=== PATIENT | female | born 1955 | race Caucasian/White ===

== ENCOUNTER → 2018-05-16 11:37 | Outpatient (CLI) | payer BC, SELFPAY ==
[2018-05-17 19:59] LABS: Calcium, Ionized 5.9 mg/dL (4.5-5.6); Parathyroid Hormone Intact 92 pg/mL (15-65)
== END ==
PROVIDERS: PCP Physician Assistant; Visit Provider Physician Assistant
DX: E83.52 Hypercalcemia (principal)
CPT/HCPCS: 36415; 82330; 83970

== ENCOUNTER → 2021-10-25 07:38 | Outpatient (CLI) | payer MEDICARE, BC, MEDICAID, SELFPAY ==
[2021-10-25 21:07] LABS: Basophils # 0.1 K/mm3 (0-0.2); Basophils % 1.5 % (0.1-2.0); Eosinophils # 0.2 K/mm3 (0.0-0.4); Eosinophils % 3.3 % (0.1-12.0); Hemoglobin 12.8 g/dL (12.2-16.2); Lymphocytes # 1.1 K/mm3 (0.7-4.5); Lymphocytes % 16.2 % (10-50); Mean Corpuscular HGB Conc 32.2 g/dL (31.8-35.4); Mean Corpuscular Hemoglobin 32.7 pg (27.0-31.2); Mean Corpuscular Volume 101.6 fl (81-99); Mean Platelet Volume 12.4 fl (7.4-10.4); Monocytes # 0.4 K/mm3 (0.1-1.0); Monocytes % 5.9 % (1.7-9.3); Neutrophils # 5.1 K/mm3 (1.8-7.8); Neutrophils % 73.1 % (37.0-80.0); Platelet Count 184 K/mm3 (142-424); Red Blood Count 3.93 M/mm3 (4.20-5.40); Red Cell Distribution Width 13.9 % (11.5-17.5)
[2021-10-25 21:13] LABS: Alanine Aminotransferase 17 U/L (12-78); Albumin Level 3.8 g/dl (3.5-5.0); Albumin/Globulin Ratio 1.3 (1.1-1.8); Alkaline Phosphatase 166 U/L (38-126); Anion Gap 12.9 mEq/L (5-15); Aspartate Amino Transferase 72 U/L (14-36); Bilirubin,Total 0.9 mg/dl (0.2-1.3); Blood Urea Nitrogen 20 mg/dl (7-17); Calcium 10.8 mg/dl (8.4-10.2); Carbon Dioxide 20 mmol/L (22.0-30.0); Chloride 111 mmol/L (98-107); Chol/HDL Ratio 3.1 (1-3.5); Cholesterol 175 mg/dl (140-200); Estimated Glomerular Filt Rate 62 ml/min (>60); GFR (African American) 76 ML/MIN (>60); Glucose 94 mg/dl (74-100); HDL Cholesterol 56 mg/dl (40-60); Potassium 3.9 mmoL/L (3.5-5.1); Sodium 140 mmol/L (136-145); Total Protein,Serum 6.8 g/dl (6.3-8.2); Triglycerides 140 mg/dl (30-150); VLDL Cholesterol 28 mg/dL (0-40)
[2021-10-25 21:37] LABS: Hemoglobin A1C 4.8 % (4.0-6.0)
[2021-10-26 10:02] LABS: Intact Parathyroid Hormone 87.9 pg/mL (7.5-53.5)
[2021-10-26 10:57] LABS: Vitamin B12 286 pg/mL (239-931)
[2021-10-26 11:01] LABS: Folate > 20.00 ng/mL
[2021-10-28 13:15] LABS: Direct LDL Cholesterol 76.91 mg/dL (100-129)
== END ==
PROVIDERS: PCP Family Medicine; Visit Provider Student in an Organized Health Care Education/Training Program
DX: E11.9 Type 2 diabetes mellitus without complications (principal); I10 Essential (primary) hypertension
CPT/HCPCS: 80053; 80061; 82607; 82746; 83036; 83970; 85025

== ENCOUNTER → 2021-11-01 20:05 | Outpatient (CLI) | payer MEDICARE, BC, MEDICAID, SELFPAY ==
[2021-11-01 22:28] LABS: 25-OH Vitamin D, Total 42.8 ng/mL (30-100)
[2021-11-03 18:09] LABS: Calcium, Ionized 6.4 mg/dL (4.5-5.6)
== END ==
PROVIDERS: PCP Student in an Organized Health Care Education/Training Program; Visit Provider Student in an Organized Health Care Education/Training Program
DX: R53.83 Other fatigue (principal); E66.9 Obesity, unspecified; Z68.32 Body mass index [BMI] 32.0-32.9, adult
CPT/HCPCS: 82306; 82330

== ENCOUNTER 2022-04-20 14:30 | Outpatient (RCR) | payer MEDICARE, BC, MEDICAID, SELFPAY ==
--- NOTE | 2022-03-13 16:44 | HMH.PTOPEV ---
PT Outpatient Evaluation Rehab PT Outpatient Evaluation Start: 03/13/22 15:02 Freq: Status: Active Protocol: Document 03/13/22 15:03 PDESEROUX (Rec: 03/13/22 16:44 [email or web address] [id number]) E-signed By Terry Powell, PT Outpatient Therapy Subjective History Subjective History Pt. is a 66 year old female whom presents to [facility] Out[facility] Services in [place] for the initial evaluation for imbalance/falls/weakness this date(03/13/22) w/ c/o chronic and intermittent SOB, BLE muscle weakness, imbalance, and falls of insidious onset that has worsened since last fall(2021). Pt. reports noticing a worsening of symptoms after she had quit doing her exercises that she was given after going to the Prison. Pt. reports she was [facility] to a Prison last February(2021) secondary to having multiple falls. Pt. reports noticing an improvement in fall risk w/ a BLE strengthening, gait training, and balance/ proprioceptive program in the Prison, but also with the continuation of exercises that she was given after being discharged from the Prison. Pt. reports she had fallen 6 times in 4 days as the reason she was admitted to the Prison last year. Pt. currently reports falling at least 10 times in the last 6 months. Pt. reports increased BLE shakiness or trembling d/t weakness as the main reason for having her falls. Pt. reports her most recent fall was at [facility]. Pt. reports owning a rollator, FWW, SPC, and quad cane. Pt. reports she lives alone in a 1 -story home. Pt. reports
== END 2022-05-11 16:05 | disposition home or self-care (01) ==
LOC: PT 14:30
PROVIDERS: PCP Family Medicine; Visit Provider Family Medicine
DX: R26.81 Unsteadiness on feet (principal); M62.81 Muscle weakness (generalized); W19.XXXA Unspecified fall, initial encounter
CPT/HCPCS: 97110; 97112; 97163; 97164; 97530

== ENCOUNTER 2023-04-05 14:01 | Inpatient (IN) | payer MEDICARE, BC, SELFPAY ==
[2023-04-05] VITALS (10 sets, daily range): BP systolic 137–180; BP diastolic 74–100; PULSE 60–90; RESP 18–20; TEMP 36.6–36.7; O2SAT 95–100; BMI 34.7; BMI 31.8
--- NOTE | 2023-04-05 14:34 | CT_ITS ---
FINAL REPORT CLINICAL HISTORY: AMS FINDINGS: Axial images of the head were obtained without contrast. Coronal reformatted images were also obtained. This study was performed with techniques to keep radiation doses as low as reasonably achievable (ALARA). Individualized dose reduction techniques using automated exposure control or adjustment of mA and/or kV according to the patient''s size were employed. There is generalized age-appropriate atrophy. Periventricular low-attenuation areas are seen consistent with mild chronic ischemic changes. There is an area of encephalomalacia in the right posterior frontal lobe. There are extra-axial calcifications in the convexities bilaterally, largest measures 7 mm which may represent dural calcification or small calcified meningiomas. There is no evidence of intracranial hemorrhage or mass. There is no evidence of acute infarct. There is no evidence of shift of the midline structures. There is moderate left maxillary mucosal thickening. IMPRESSION: Atrophy and mild periventricular chronic ischemic changes. No acute intracranial abnormality identified. Reviewed, Interpreted and Dictated by Yoni Chris III, MD Transcribed by Coretta Wu Authenticated and [facility]
--- NOTE | 2023-04-05 14:34 | XR_ITS ---
FINAL REPORT CLINICAL HISTORY: dyspnea FINDINGS: SINGLE-VIEW CHEST There is cardiomegaly. Patient is status post median sternotomy. Right subclavian pacer is identified. The lungs are clear. There is no pneumothorax. IMPRESSION: No acute cardiopulmonary process. Reviewed, Interpreted and Dictated by Yoni Chris III, MD Transcribed by Coretta Wu Authenticated and [facility]
--- NOTE | 2023-04-05 14:36 | HMH.EDGENADL ---
Discharge Plan Disposition Patient Disposition: Admitted Prescriptions Prescriptions: No Action Eliquis 5 mg tablet 5 mg PO BID multivitamin Tablet 1 tab PO DAILY biotin 5,000 mcg tablet,disintegrating 10,000 mcg PO DAILY bupropion HCl 300 mg tablet extended release 24 hr 300 mg PO DAILY Qty: 90 3RF cholecalciferol (vitamin D3) 25 mcg (1,000 unit) capsule 25 mcg PO DAILY Qty: 90 3RF furosemide 20 mg tablet 20 mg PO DAILY Qty: 90 3RF losartan 50 mg tablet 50 mg PO DAILY Qty: 90 3RF potassium chloride 10 mEq capsule, extended release 10 meq PO DAILY Qty: 90 3RF sertraline 100 mg tablet 100 mg PO DAILY Qty: 90 3RF albuterol sulfate [Ventolin HFA] 90 mcg/actuation HFA aerosol inhaler 1 puff inhalation QID PRN (Reason: shortness of breath or wheezing) Qty: 18 2RF sotalol 80 mg tablet 80 mg PO BID 90 Days Qty: 180 0RF Referrals Follow up/Referrals: Rosas Alanis MD [Primary Care Provider] - See instructions Clinical Impressions Clinical Impression: Encephalopathy acute, CHF exacerbation, Elevated troponin, Acute UTI Instructions Patient Instructions: DI for Altered Mental Status Discharge ED Provider: Rogelio Klein General Adult HPI <Jerrica Dolan MD - Last Filed: 04/05/23 14:39> General Chief complaint: Altered Mental Status Stated complaint: sent from [facility] Time Seen by Provider: 04/05/23 14:31 Mode of Arrival: Ambulatory Source of Information: Patient Limitations: No Limitations Description of Symptoms (Recalled from ER Triage Doc. by RN): Patient reports she has been having trouble with her memory. Patient reports she has been staying at her sisters house because she feels unsafe to stay alone because of her memory. Patient reports she feels as if she has worn out her welcome at her sisters so she stayed at her house last night but that she does not have electricity currently because she forgot how to pay it. History of Present Illness HPI narrative: Patient is a 67-year-old female who is by herself at the moment and history is significantly limited as she is brought in for confusion. She does not know how long this has been going on she cannot tell me any further symptoms she denies any headache abdominal pain chest pain urinary symptoms but also states she does not know why she is here. Apparently sister dropped her off but she is not in the room to provide any additional history at the moment. Related Data Home Medications Medication Instructions Recorded Confirmed apixaban 5 mg tablet (Eliquis) 5 mg PO BID 10/18/21 03/01/22 multivitamin 1 tab PO DAILY 10/18/21 03/01/22 biotin 5,000 mcg disintegrating 10,000 mcg PO DAILY 10/25/21 03/01/22 tablet Previous Rx's Medication Instructions Recorded bupropion HCl 300 mg 24 hr tablet, 300 mg PO DAILY #90 tabs 10/25/21 extended release cholecalciferol (vitamin D3) 25 25 mcg PO DAILY #90 caps 10/25/21 mcg (1,000 unit) capsule furosemide 20 mg tablet 20 mg PO DAILY #90 tabs 10/25/21 losartan 50 mg tablet 50 mg PO DAILY HTN #90 tabs 10/25/21 potassium chloride 10 mEq 10 meq PO DAILY #90 caps 10/25/21 capsule,extended release sertraline 100 mg tablet 100 mg PO DAILY Depression #90 tabs 10/25/21 albuterol sulfate 90 mcg/actuation 1 puff inhalation QID PRN 10/26/21 aerosol inhaler (Ventolin HFA) shortness of breath or wheezing #18 grams sotalol 80 mg tablet 80 mg PO BID 90 days #180 tabs 06/07/22 Allergies Allergy/AdvReac Type Severity Reaction Status Date / Time Sulfa (Sulfonamide Allergy Unknown Verified 03/01/22 13:07 Antibiotics) allergy reaction From DARVOCET-N 100 AdvReac Intermediate NA-NAUSEA/V Uncoded 03/01/22 13:07 OMITING PFSH <Jerrica Dolan MD - Last Filed: 04/05/23 14:39> [facility] Disclaimer: The information contained in this section may have been updated after the patient was seen, as this information can be updated by other users. Medical History Aortic stenosis Breast cancer Diabetes mellitus Hypertension Paroxysmal atrial fibrillation Surgical History Aortic valve replaced H/O heart valve replacement with bioprosthetic valve H/O mastectomy H/O: hysterectomy Hx of cholecystectomy Family History Mother Coronary artery disease Father Heart attack Sister Hypertension Hyperlipidemia Coronary artery disease Diabetes Social History Smoking Status: Former smoker second hand exposure: No alcohol intake: never counseling given: No current occupational status: unemployed Travel in the last 8 weeks: None household members: none housing: house lives independently: Yes number of children: 0 number of grandchildren: 0 Hx Recent Travel: No <Jerrica Dolan MD - Last Filed: 04/05/23 14:39> ROS Obtained: Yes All systems reviewed & no additional complaints except as documented Physical Exam <Jerrica Dolan MD - Last Filed: 04/05/23 14:39> General General appearance: alert, in no apparent distress and anxious (Crying) Respiratory Respiratory exam: Present normal lung sounds bilaterally and respiratory distress Cardiovascular Cardiovascular exam: Present regular rate and normal rhythm Abdominal Exam Abdominal exam: Present soft; Absent distention or tenderness Extremities Exam Extremities exam: Present normal inspection and full ROM Neurological Exam Neurological exam: Present alert, CN II-XII intact and normal gait; Absent oriented X3 (Patient oriented to person and place but not time) or motor sensory deficit Medical Decision Making <Jerrica Dolan MD - Last Filed: 04/05/23 14:39> [facility] Inquiry Pt receiving controlled substance: No Vital Signs: 04/05/23 14:14 04/05/23 14:30 04/05/23 15:30 Pulse Rate 78 60 Pulse Rate [Right Brachial] 75 Respiratory Rate 18 20 Blood Pressure 149/78 H 159/90 H Blood Pressure [Right Arm] 172/100 H Blood Pressure Mean 101 98 Blood Pressure Mean [Right Arm] 124 Blood Pressure Source [Right Arm] Automatic Cuff Blood Pressure Position [Right Arm] Sitting 02 Sat by Pulse Oximetry 99 95 95 Oxygen Delivery Method Room Air 04/05/23 16:00 Pulse Rate 68 Pulse Rate [Right Brachial] Respiratory Rate 20 Blood Pressure 149/84 H Blood Pressure [Right Arm] Blood Pressure Mean 105 Blood Pressure Mean [Right Arm] Blood Pressure Source [Right Arm] Blood Pressure Position [Right Arm] 02 Sat by Pulse Oximetry 99 Oxygen Delivery Method Lab Data Lab Results 04/05/23 15:10: Sodium 143, Potassium 3.5, Chloride 108 H, Carbon Dioxide 28, Anion Gap 10.5, BUN 16, Creatinine 1.10 H, Estimated Creat Clear 75, Estimated GFR 49 L, Est GFR ( Amer) 60, Glucose 123 H, Calcium 10.5 H, Phosphorus 2.7, Magnesium 1.8, Total Bilirubin 1.8 H, AST 38 H, ALT 24, Alkaline Phosphatase 113, Ammonia 19, Troponin I 0.05 H, NT-Pro-B Natriuret Pep 5680 H, Total Protein 7.1, Albumin 3.9, Globulin 3.2, Albumin/Globulin Ratio 1.2, TSH 1.12 04/05/23 15:20: VBG pH 7.41, VBG pCO2 41.2, VBG pO2 38.0, VBG HCO3 25.4, VBG Total CO2 26.6, VBG O2 Saturation 69.6, VBG Base Excess 0.7, Urine Color Yellow, Urine Appearance Clear, Urine pH 7.0, Ur Specific [place] 1.015, Urine Protein Trace, Urine Glucose (UA) Negative, Urine Ketones Negative, Urine Blood Negative, Urine Nitrate Negative, Urine Bilirubin 1+ A, Urine Urobilinogen 2.0, Ur Leukocyte Esterase 1+ A, Urine RBC Occasional, Urine WBC 5-10, Ur Squamous Epith Cells 3-5, Urine Bacteria Trace 04/05/23 15:10 Orders (Tests/Meds): ED MEDICATIONS Discontinued Medications Generic Name Dose Route Start Last Admin Trade Name Blayneq PRN Reason Stop Dose Admin Furosemide 40 mg 04/05/23 17:08 Furosemide 40mg/4ml Vial IV 04/05/23 17:09 ONCE ONE Lactated Ringer's 1,000 mls @ 999 mls/hr 04/05/23 14:45 04/05/23 15:07 Lactated Ringer's 1000 Ml Bag IV 04/05/23 15:45 999 mls/hr .Q1H1M CARLOS A Administration Ceftriaxone Sodium 1 gm/ 50 mls @ 100 mls/hr 04/05/23 16:28 04/05/23 16:57 Sodium Chloride IV 04/05/23 16:57 100 mls/hr ONCE ONE Administration ORDERS Category Date Time Status CT head/brain wo con Stat Cat Scan 04/05/23 14:34 Completed CXR --portable [XR chest portable] Stat Exams 04/05/23 14:34 Completed Ammonia Stat Lab 04/05/23 15:10 Completed Brain Natriuretic Peptide Stat Lab 04/05/23 15:10 Completed CBC w/Auto Diff [Complete Blood Count Auto Diff] Stat Lab 04/05/23 17:00 Received CMP [Comprehensive Metabolic Panel] Stat Lab 04/05/23 15:10 Completed Magnesium Stat Lab 04/05/23 15:10 Completed Phosphorous Stat Lab 04/05/23 15:10 Completed TSH [Thyroid Stimulating Hormone] Stat Lab 04/05/23 15:10 Completed Trop I [Troponin I] Stat Lab 04/05/23 15:10 Completed Troponin I Q3H Lab 04/05/23 17:45 Ordered Troponin I Q3H Lab 04/05/23 20:45 Ordered UA [Urinalysis and Microscopic] Stat Lab 04/05/23 15:20 Completed Urine Culture Stat Micro 04/05/23 15:20 Received Venous Blood Gas Stat RT 04/05/23 15:20 Completed Medical Decision Narrative: Is a 67-year-old female presenting today for acute encephalopathy duration and exact nature surrounding this is unknown given her clinical status and nobody else is available currently to give any additional history. Patient unable to provide any focal or localizing symptoms. Will do a nonspecific encephalopathy and altered mental status workup. She is afebrile do not suspect she has a [employer] infection. Care was transitioned to Dr. Rogelio Klein at 3 PM for further evaluation and treatment. <Rogelio Klein MD - Last Filed: 04/05/23 17:17> Vital Signs: 04/05/23 14:14 04/05/23 14:30 04/05/23 15:30 Pulse Rate 78 60 Pulse Rate [Right Brachial] 75 Respiratory Rate 18 20 Blood Pressure 149/78 H 159/90 H Blood Pressure [Right Arm] 172/100 H Blood Pressure Mean 101 98 Blood Pressure Mean [Right Arm] 124 Blood Pressure Source [Right Arm] Automatic Cuff Blood Pressure Position [Right Arm] Sitting 02 Sat by Pulse Oximetry 99 95 95 Oxygen Delivery Method Room Air 04/05/23 16:00 Pulse Rate 68 Pulse Rate [Right Brachial] Respiratory Rate 20 Blood Pressure 149/84 H Blood Pressure [Right Arm] Blood Pressure Mean 105 Blood Pressure Mean [Right Arm] Blood Pressure Source [Right Arm] Blood Pressure Position [Right Arm] 02 Sat by Pulse Oximetry 99 Oxygen Delivery Method Lab Data Lab Results 04/05/23 15:10: Sodium 143, Potassium 3.5, Chloride 108 H, Carbon Dioxide 28, Anion Gap 10.5, BUN 16, Creatinine 1.10 H, Estimated Creat Clear 75, Estimated GFR 49 L, Est GFR ( Amer) 60, Glucose 123 H, Calcium 10.5 H, Phosphorus 2.7, Magnesium 1.8, Total Bilirubin 1.8 H, AST 38 H, ALT 24, Alkaline Phosphatase 113, Ammonia 19, Troponin I 0.05 H, NT-Pro-B Natriuret Pep 5680 H, Total Protein 7.1, Albumin 3.9, Globulin 3.2, Albumin/Globulin Ratio 1.2, TSH 1.12 04/05/23 15:20: VBG pH 7.41, VBG pCO2 41.2, VBG pO2 38.0, VBG HCO3 25.4, VBG Total CO2 26.6, VBG O2 Saturation 69.6, VBG Base Excess 0.7, Urine Color Yellow, Urine Appearance Clear, Urine pH 7.0, Ur Specific [place] 1.015, Urine Protein Trace, Urine Glucose (UA) Negative, Urine Ketones Negative, Urine Blood Negative, Urine Nitrate Negative, Urine Bilirubin 1+ A, Urine Urobilinogen 2.0, Ur Leukocyte Esterase 1+ A, Urine RBC Occasional, Urine WBC 5-10, Ur Squamous Epith Cells 3-5, Urine Bacteria Trace Orders (Tests/Meds): ED MEDICATIONS Discontinued Medications Generic Name Dose Route Start Last Admin Trade Name Blayneq PRN Reason Stop Dose Admin Furosemide 40 mg 04/05/23 17:08 Furosemide 40mg/4ml Vial IV 04/05/23 17:09 ONCE ONE Lactated Ringer's 1,000 mls @ 999 mls/hr 04/05/23 14:45 04/05/23 15:07 Lactated Ringer's 1000 Ml Bag IV 04/05/23 15:45 999 mls/hr .Q1H1M CARLOS A Administration Ceftriaxone Sodium 1 gm/ 50 mls @ 100 mls/hr 04/05/23 16:28 04/05/23 16:57 Sodium Chloride IV 04/05/23 16:57 100 mls/hr ONCE ONE Administration ORDERS Category Date Time Status CT head/brain wo con Stat Cat Scan 04/05/23 14:34 Completed CXR --portable [XR chest portable] Stat Exams 04/05/23 14:34 Completed Ammonia Stat Lab 04/05/23 15:10 Completed Brain Natriuretic Peptide Stat Lab 04/05/23 15:10 Completed CBC w/Auto Diff [Complete Blood Count Auto Diff] Stat Lab 04/05/23 17:00 Received CMP [Comprehensive Metabolic Panel] Stat Lab 04/05/23 15:10 Completed Magnesium Stat Lab 04/05/23 15:10 Completed Phosphorous Stat Lab 04/05/23 15:10 Completed TSH [Thyroid Stimulating Hormone] Stat Lab 04/05/23 15:10 Completed Trop I [Troponin I] Stat Lab 04/05/23 15:10 Completed Troponin I Q3H Lab 04/05/23 17:45 Ordered Troponin I Q3H Lab 04/05/23 20:45 Ordered UA [Urinalysis and Microscopic] Stat Lab 04/05/23 15:20 Completed Urine Culture Stat Micro 04/05/23 15:20 Received Venous Blood Gas Stat RT 04/05/23 15:20 Completed Medical Decision Narrative: Is a 67-year-old female presenting today for acute encephalopathy duration and exact nature surrounding this is unknown given her clinical status and nobody else is available currently to give any additional history. Patient unable to provide any focal or localizing symptoms. Will do a nonspecific encephalopathy and altered mental status workup. She is afebrile do not suspect she has a [employer] infection. Care was transitioned to Dr. Rogelio Klein at 3 PM for further evaluation and treatment. Ernie: I assume primary responsibility for this patient after signout from previous physician. I took over shortly after evaluation and prior to labs and imaging returning. After my evaluation, I also added on BNP. Patient complaining of confusion and family is corroborating the story. Patient also has generalized weakness, no shortness of breath, chest pain, fevers, chills, nausea, vomiting, or any other concerns. Also denies urinary symptoms. Physical exam largely nonconcerning. She does have lower extremity nonpitting edema. Patient alert and oriented to person, but not place or time. Workup independently interpreted. Patient has nonactionable CBC with normal lites, hemoglobin, platelets. Chemistry with mild creatinine bump 1.1, BUN normal. She does have a troponin elevation 0.05 with associated BNP 5700. CT head without acute intracranial abnormality. Chest x-ray with cardiomegaly as well as cephalization of pulmonary vessels concerning for early pulmonary edema. No overt edema. Given these findings, hospital medicine was contacted for evaluation for admission. Because patient high risk for clinical decompensation, deemed appropriate for inpatient admission. Results were relayed to patient and family who voiced understanding and patient was agreeable to inpatient admission and management. Patient was admitted to the hospital for further definitive management. Critical Care <Jerrica Dolan MD - Last Filed: 04/05/23 14:39> Critical Care Time Critical Care Time: No <Rogelio Klein MD - Last Filed: 04/05/23 17:17> Critical Care Time Critical Care Time: Yes (CV) Attestation: On 04/05/23, the high probability of a clinically significant, sudden or life threatening deterioration of the following system(s) required my full and direct attention, intervention and personal management. The time I documented below is in addition to time spent performing reported procedures but includes the following listed in this critical care notation. Total Time Total Critical Care Time: 45
[2023-04-05] MEDS: LACTATED RINGERS 1000ML 1,000 ML 999 ML IV (15:07)
--- NOTE | 2023-04-05 15:20 | PC.NURSE ---
respiratory aware of VBG order and blood in the lab
[2023-04-05 15:26] LABS: Microscopic, Urine URINE MICROSCOPIC (MICROSCOPIC)
[2023-04-05 15:28] LABS: VBG Base Excess 0.7 mmol/L (-2.4-2.3); VBG HCO3 25.4 mmol/L (23-30); VBG Oxygen Saturation 69.6 % (50-70); VBG PCO2 41.2 mmol/L (35-51); VBG PH 7.41 mmol/L (7.31-7.41); VBG Total CO2 26.6 mmol/L (23-27)
[2023-04-05 15:36] LABS: Alanine Aminotransferase 24 U/L (12-78); Albumin Level 3.9 g/dl (3.5-5.0); Albumin/Globulin Ratio 1.2 (1.1-1.8); Alkaline Phosphatase 113 U/L (38-126); Anion Gap 10.5 mEq/L (5-15); Aspartate Amino Transferase 38 U/L (14-36); Bilirubin,Total 1.8 mg/dl (0.2-1.3); Blood Urea Nitrogen 16 mg/dl (7-17); Calcium 10.5 mg/dl (8.4-10.2); Carbon Dioxide 28 mmol/L (22.0-30.0); Chloride 108 mmol/L (98-107); Creatinine Clearance Estimated 75 mL/min (50-200); Estimated Glomerular Filt Rate 49 ml/min (>60); GFR (African American) 60 ML/MIN (>60); Globulin 3.2 g/dL (1.3-3.2); Glucose 123 mg/dl (74-100); Magnesium 1.8 mg/dl (1.6-2.3); Phosphorous 2.7 mg/dl (2.5-4.5); Potassium 3.5 mmoL/L (3.5-5.1); Sodium 143 mmol/L (136-145); Total Protein,Serum 7.1 g/dl (6.3-8.2)
[2023-04-05 15:48] LABS: Troponin I 0.05 ng/ml (0.00-0.034)
[2023-04-05 15:50] LABS: Appearance,Urine CLEAR (Clear); Blood, Urine Negative (Negative); Color,Urine YELLOW (Yellow); Glucose,Urine (UA) Negative (Negative); Ketones,Urine Negative (Negative); Leukocyte Esterase,Urine 1+ (Negative); Nitrate,Urine Negative (Negative); Protein,Urine TRACE (Negative); Specific Gravity, Urine 1.015 (1.005-1.030)
[2023-04-05 15:56] LABS: Ammonia 19 umol/L (9-30)
[2023-04-05 15:58] LABS: Bilirubin,Urine 1+ (Negative)
[2023-04-05 16:05] LABS: Bacteria,Urine Trace /lpf; RBC,Urine Occasional #/hpf (0-3)
[2023-04-05 16:07] LABS: Thyroid Stimulating Hormone 1.12 uIU/mL (0.465-4.68)
[2023-04-05] MEDS: CEFTRIAXONE SODIUM 1 GM in 0.9 % SODIUM CHLORIDE 50 ML IV (16:57)
[2023-04-05 17:01] LABS: NT Pro Brain Natriuretic Pep. 5680 pg/mL (0-125)
[2023-04-05 17:15] LABS: Basophils % 0.4 % (0.1-2.0); Eosinophils # 0.2 K/mm3 (0.0-0.4); Eosinophils % 2.9 % (0.1-12.0); Hemoglobin 13.5 g/dL (12.2-16.2); Lymphocytes # 0.9 K/mm3 (0.7-4.5); Lymphocytes % 12.6 % (10-50); Mean Corpuscular HGB Conc 33.7 g/dL (31.8-35.4); Mean Corpuscular Hemoglobin 32.8 pg (27.0-31.2); Mean Corpuscular Volume 97.4 fl (81-99); Mean Platelet Volume 11.1 fl (7.4-10.4); Monocytes # 0.5 K/mm3 (0.1-1.0); Monocytes % 6.1 % (1.7-9.3); Neutrophils # 5.8 K/mm3 (1.8-7.8); Neutrophils % 77.9 % (37.0-80.0); Platelet Count 158 K/mm3 (142-424); Red Blood Count 4.11 M/mm3 (4.20-5.40); Red Cell Distribution Width 14.3 % (11.5-17.5); White Blood Count 7.4 K/mm3 (4.8-10.8)
--- NOTE | 2023-04-05 17:15 | PC.NURSE ---
called lead housekeeper for admission
--- NOTE | 2023-04-05 17:33 | ECG_ITS ---
APPROVED REPORT Exam: Resting ECG HR:81 bpm ECG Measurements Heart Rate 81 AXES QRSd 96 QRS 81 QT 365 T 52 QTc 403 Conclusion ATRIAL FIBRILLATION POSSIBLE ANTERIOR MYOCARDIAL INFARCTION , PROBABLY OLD [30 ms Q WAVE IN V3/V4, OR R < 0.2 mV IN V4] ABNORMAL RHYTHM ECG UNCONFIRMED REPORT Electronically signed by : Fred Blanco MD 04/05/2023 19:55:18
[2023-04-05 17:46] LABS: Troponin I 0.04 ng/ml (0.00-0.034)
--- NOTE | 2023-04-05 17:51 | PC.NURSE ---
Report called to [facility] at this time
[2023-04-05] MEDS: FUROSEMIDE 40MG/4ML VIAL 40 MG IV (17:52)
--- NOTE | 2023-04-05 19:00 | PC.NURSE ---
PT IS ALERT AND ORIENTED X4, ABLE TO ANSWER ALL OF MY ORIENTATION QUESTIONS, HOWEVER IS A POOR HISTORIAN AND SEEMS TO HAVE SOME RETIREMENT MEMORY ISSUES. PT IS VERY TEARFUL, ANXIOUS, SCARED, AND CONTINUES TO ASK ARE YOU ALL GOING TO KCIK ME OUT? EXPLAINED TO PT THAT SHE IS SAFE HERE, WE WILL TAKE CARE OF HER AND HELP HER. VERBALIZES UNDERSTANDING. PT ABLE TO WALK TO THE BATHROOM, STANDBY ASSIST. DOES HAVE SOME PITTING EDEMA TO THE BLE. PT EXPRESSES THAT SHE DOES NOT HAVE HEAT OR ELECTRICITY AT HOME, AND THAT SHE HAS FLEAS. SHE DOES NOT HAVE HER CAR AT THIS TIME. AND STATES I'M NOT ABLE TO TAKE CARE OF MYSELF. PROVIDED PT WITH SNACK AND DRINK. PT UNABLE TO TELL ME WHAT MEDICATIONS SHE TAKES OR WHEN SHE LAST TOOK THEM. PT IS VERY CONFUSED ABOUT THIS. NO NEEDS OR C/O NOTED SINCE ARRIVAL TO THE FLOOR. BED SAFETY ON. VSS.
--- NOTE | 2023-04-05 21:10 | P.HP_ITS ---
History of Present Illness *Admission Date: 04/05/23 *Reason for visit:: AMS *History of present illness: This is a 67-year-old female, with questionable dementia, history of diabetes with dietary management, hypertension, history of aortic valve replacement on Eliquis, brought in by sister to the emergency room for apparently altered mental status. Currently patient is AOx4, able to communicate her needs. Patient lives by herself. patient reported last thing she remembered was last night going to bed at home. Then the next day she remembers is being picked up by sister ambulatory into the emergency room. On ER documentation, apparently patient was at the sister house, concerning feeling safe because of her memory issues. History is limited as he is unable to communicate with any other family members. She denies any headache abdominal pain chest pain urinary symptoms. She preferred to have order shortness of breath that increased on exertion. admitted for further management and workup. [facility] Disclaimer: The information contained in this section may have been updated after the patient was seen, as this information can be updated by other users. Medical History (Updated 04/05/23 @ 21:41 by Olman Vallecillo APRN) Aortic stenosis Breast cancer Diabetes mellitus Hypertension Paroxysmal atrial fibrillation Surgical History (Updated 04/06/23 @ 12:00 by Adrianna Real APRN) Aortic valve replaced H/O heart valve replacement with bioprosthetic valve H/O mastectomy H/O: hysterectomy Hx of cholecystectomy Family History Mother Coronary artery disease Father Heart attack Sister Hypertension Hyperlipidemia Coronary artery disease Diabetes Social History Smoking Status: Former smoker second hand exposure: No alcohol intake: never counseling given: No current occupational status: unemployed Travel in the last 8 weeks: None household members: none housing: house lives independently: Yes number of children: 0 number of grandchildren: 0 Hx Recent Travel: No Review of Systems Review of Systems Review of systems:: pertinent systems reviewed and negative unless documented below Meds Home Medications and Allergies Home Medications Medication Instructions Recorded Confirmed Type apixaban 5 mg tablet (Eliquis) 5 mg PO BID 10/18/21 04/06/23 History multivitamin 1 tab PO DAILY 10/18/21 04/06/23 History biotin 5,000 mcg disintegrating 10,000 mcg PO DAILY 10/25/21 04/06/23 History tablet bupropion HCl 300 mg 24 hr tablet, 300 mg PO DAILY #90 tabs 10/25/21 04/06/23 Rx extended release cholecalciferol (vitamin D3) 25 25 mcg PO DAILY #90 caps 10/25/21 04/06/23 Rx mcg (1,000 unit) capsule furosemide 20 mg tablet 20 mg PO DAILY #90 tabs 10/25/21 04/06/23 Rx losartan 50 mg tablet 50 mg PO DAILY HTN #90 tabs 10/25/21 04/06/23 Rx potassium chloride 10 mEq 10 meq PO DAILY #90 caps 10/25/21 04/06/23 Rx capsule,extended release sertraline 100 mg tablet 100 mg PO DAILY Depression #90 tabs 10/25/21 04/06/23 Rx albuterol sulfate 90 mcg/actuation 1 puff inhalation QID PRN 10/26/21 04/06/23 Rx aerosol inhaler (Ventolin HFA) shortness of breath or wheezing #18 grams sotalol 80 mg tablet 80 mg PO BID 90 days #180 tabs 06/07/22 04/06/23 Rx cefuroxime axetil 500 mg tablet 500 mg PO Q12H 5 days #10 tabs 04/07/23 Rx New Prescriptions to Start Prescriptions: cefuroxime axetil Mike Cuevas Allergies Allergy/AdvReac Type Severity Reaction Status Date / Time Sulfa (Sulfonamide Allergy Unknown Verified 03/01/22 13:07 Antibiotics) allergy reaction acetaminophen AdvReac Vomiting Verified 04/06/23 07:13 [From Darvocet-N 100] propoxyphene AdvReac Vomiting Verified 04/06/23 07:13 [From Darvocet-N 100] Exam Data for Last 24 hours Vital signs and Labs for Last 24 Hours: Temp Pulse Resp BP Pulse Ox O2 Del Method 97.9 F 70 19 180/98 H 99 Room Air 04/05/23 18:19 04/05/23 18:26 04/05/23 18:19 04/05/23 18:19 04/05/23 18:19 04/05/23 18:59 Laboratory Results - last 24 hr 04/05/23 15:10: Sodium 143, Potassium 3.5, Chloride 108 H, Carbon Dioxide 28, Anion Gap 10.5, BUN 16, Creatinine 1.10 H, Estimated Creat Clear 75, Estimated GFR 49 L, Est GFR ( Amer) 60, Glucose 123 H, Calcium 10.5 H, Phosphorus 2.7, Magnesium 1.8, Total Bilirubin 1.8 H, AST 38 H, ALT 24, Alkaline Phosphatase 113, Ammonia 19, Troponin I 0.05 H, NT-Pro-B Natriuret Pep 5680 H, Total Protein 7.1, Albumin 3.9, Globulin 3.2, Albumin/Globulin Ratio 1.2, TSH 1.12 04/05/23 15:20: VBG pH 7.41, VBG pCO2 41.2, VBG pO2 38.0, VBG HCO3 25.4, VBG Total CO2 26.6, VBG O2 Saturation 69.6, VBG Base Excess 0.7, Urine Color Yellow, Urine Appearance Clear, Urine pH 7.0, Ur Specific Ne[place] 1.015, Urine Protein Trace, Urine Glucose (UA) Negative, Urine Ketones Negative, Urine Blood Negative, Urine Nitrate Negative, Urine Bilirubin 1+ A, Urine Urobilinogen 2.0, Ur Leukocyte Esterase 1+ A, Urine RBC Occasional, Urine WBC 5-10, Ur Squamous Epith Cells 3-5, Urine Bacteria Trace 04/05/23 17:00: WBC 7.4, RBC 4.11 L, Hgb 13.5, Hct 40.0, MCV 97.4, MCH 32.8 H, MCHC 33.7, RDW 14.3, Plt Count 158, MPV 11.1 H, Neut % (Auto) 77.9, Lymph % (Auto) 12.6, [place]win % (Auto) 6.1, Eos % (Auto) 2.9, Baso % (Auto) 0.4, Neut # (Auto) 5.8, Lymph # (Auto) 0.9, [place]win # (Auto) 0.5, Eos # (Auto) 0.2, Baso # (Auto) 0.0 04/05/23 17:14: Troponin I 0.04 H I & O for Last 24 hours: Intake & Output 04/02/23 04/03/23 04/04/23 04/05/23 23:59 23:59 23:59 23:59 Weight 89.584 kg Constitutional Constitutional: mild distress, obese and cooperative *Routine HEENT Exam Head: Present normocephalic and atraumatic Eye: Present EOMI, PERRL and normal accommodation ENT: Present mucous membranes moist *Routine Neck Exam Neck: Present supple, full ROM and trachea midline *Routine Respiratory Exam Respiratory: Present CTA bilaterally, normal respiratory effort and symmetric chest movement; Absent respiratory distress *Routine Cardiovascular Exam Cardiovascular: Present RRR, Normal S1 and Normal S2 *Routine Abdominal Exam Abdominal: Present soft and normoactive bowel sounds; Absent tenderness or organomegaly *Routine Rectal Exam Rectal:: deferred *Routine Genitalia Exam Genitalia:: deferred *Routine Extremities Exam Extremities: Present edema, full ROM and pulses intact; Absent cyanosis or clubbing Comments: 2+ bilateral lower pitting edema *Routine Skin Exam Skin: Present intact, dry and warm *Routine Neurological Exam Neurological: Present alert, oriented X3, normal reflexes, moving all extremities and normal speech Routine Psychiatric Exam Psychiatric: Present cooperative, good insight and good judgment H&P: Result Imaging and Cardiology EKG: Status: image reviewed by me and Preliminary report Chest x-ray: Status: image reviewed by me, Preliminary report and final report CT scan - head: Status: image reviewed by me, Preliminary report and final report Assessment and Plan *Assessment and plan (1) Encephalopathy acute: Status: Acute Category: Medical Code(s): G93.40 - Encephalopathy, unspecified (2) Acute UTI: Status: Acute Category: Medical Code(s): N39.0 - Urinary tract infection, site not specified (3) Elevated troponin: Status: Acute Category: Medical Code(s): R79.89 - Other specified abnormal findings of blood chemistry (4) CHF exacerbation: Status: Acute Qualifiers: Heart failure type: unspecified Qualified Code(s): I50.9 - Heart failure, unspecified Category: Medical Code(s): I50.9 - Heart failure, unspecified (5) Diabetes mellitus: Status: Acute Qualifiers: Diabetes mellitus complication status: with other specified complication Diabetes mellitus long term acute care registered nurse insulin use: without long term acute care registered nurse use Diabetes mellitus type: type 2 Qualified Code(s): E11.69 - Type 2 diabetes mellitus with other specified complication Category: Medical Code(s): E11.9 - Type 2 diabetes mellitus without complications (6) Hypertension: Status: Acute Qualifiers: Hypertension type: unspecified Qualified Code(s): I10 - Essential (primary) hypertension Category: Medical Code(s): I10 - Essential (primary) hypertension Plan 67-year-old female, with questionable dementia, history of diabetes with dietary management, hypertension, history of cardiac valve replacement on Eliquis, brought in by sister to the emergency room for apparently altered mental status. on arrival, She does have lower extremity nonpitting edema. Patient alert and oriented to person, but not place or time. Workup independently interpreted. Patient has nonactionable CBC with normal lites, hemoglobin, platelets. Chemistry with mild creatinine bump 1.1, BUN normal. She does have a troponin elevation 0.05 with associated BNP 5700. CT head without acute intracranial abn ormality. However, atrophy and mild periventricular chronic ischemic changes. Chest x-ray with cardiomegaly as well as cephalization of pulmonary vessels concerning for early pulmonary edema. Findings discussed with the ER for admission. Plan as follow: -Acute encephalopathy: To rule out secondary to acute UTI or syncope Admit patient for medical services. CTA of the head done. Concerning for mild chronic ischemic changes. Not acute intracranial process Continue with therapies vital signs per unit On flamer after lasting Cardiology consult Repeat labs in the morning UA culture pending Started on ceftriaxone 1 g daily -Elevated troponin: Likely secondary to oxygen demand. Suspected CHF. Elevated BNP Checks x-ray showing early signs of pulmonary edema One-time dose of Lasix given Continue diuresis Echocardiogram ordered Watch for electrolyte imbalance -History of diabetes: Dietary management Accu-Chek as needed -Hypertension: Resume home losartan sotalol Resume home bupropion and sertraline for depression Patient on Eliquis. Low concern for DVT. Protonix for GI bleed prophylaxis Full code Attending attestation Patient was seen and evaluated at the bedside myself, agree with YARELIS note.
[2023-04-05 21:26] LABS: Troponin I 0.05 ng/ml (0.00-0.034)
[2023-04-05] MEDS: CEFTRIAXONE 1 GM 1 GM in 0.9 % SODIUM CHLORIDE 50 ML IV (22:09)
[2023-04-06] VITALS: BP 139/75; PULSE 60; PULSE 68; RESP 18; TEMP 37; O2SAT 95
[2023-04-06 04:00] VITALS: BP 132/79; PULSE 60; PULSE 61; RESP 18; TEMP 36.9; O2SAT 95; BMI 32.0
--- NOTE | 2023-04-06 06:00 | CA_ITS ---
APPROVED REPORT EXAM: Comprehensive 2D, Doppler, and color-flow Echocardiogram Tobacco Sizer: Lupe Kowalski RDCS Ht: 5 ft 6 in Wt: 199lbs BSA: 2.00 BP: 180/98 mmHg Indications: SOA,CHF,AVR BIOPROSTHETIC 2D Dimensions LA Volume 160.20 mL LA Volume Index 80.10 mL/m2 (M/F) 16-34 M-Mode Dimensions RVDd 1.36 cm (0.9-2.6) LA Diam 6.01 cm (1.9-4.0) LVDd 5.88 cm (3.5-5.7) LVDs 4.35 cm (3.5-5.7) IVSd 1.75 cm (0.6-1.1) PWd 1.45 cm (0.6-1.1) EF (Teich) 50.30% FS 26.00% EDV (Teich) 171.90 mL ESV (Teich) 85.40 mL LV Diastology E Decel Time 477 (160-240 msec) E/A Ratio 4.6 Aortic Valve ADELITA Index 0.64 cm2/m2 AoV Peak Kike. 258.0 (50-130 cm/s) AO Peak GR. 26.70 mmHg AO Mean GR. 13.20 (<5 mmHg) AO VTI 45.9 (18-25 cm) ADELITA (VTI) 1.30 (2.5-4.5 cm2) Mitral Valve MV E Max Kike. 189.0 (40-130 cm/s) MV A Velocity 41.0 (40-130 cm/s) E/A Ratio 4.57 MV PHT 140.0 ms Tricuspid Valve TR P. Velocity 408.00 cm/s RAP Estimate 10.00 mmHg RVSP 76.60 mmHg Left Ventricle The left ventricle is normal size. The left ventricular systolic function is normal. The left ventricular ejection fraction is within the normal range. There is marked increase in LV wall thickness (IVSd 1.5 cm). There is normal LV segmental wall motion. Grade 3 diastolic dysfunction is present. LVEF is 65%. Right Ventricle The right ventricle is normal size. The right ventricular systolic function is normal. Atria The left atrium is severely dilated. Right atrium is mildly dilated. There is no Doppler evidence of interatrial shunt. Aortic Valve s/p bioprosthetic AVR. The prosthesis is well-seated. Peak velocity 2.5 m/s. Mean AV gradient 12 mmHg. Max AV gradient 26 mmHg. DI=0.55. Acceleration time 72 ms. Trace aortic regurgitation. Mitral Valve Moderate mitral annular calcification. The mitral valve leaflets are mildly thickened. There is restricted motion of the MV leaflets Mean MV gradient cannot be calculated due to absence of inflow spectral Doppler. MVA by PHT method is 1.6 cm2, suggestive of presence of mitral stenosis. Mild mitral regurgitation. Tricuspid Valve The tricuspid valve leaflets are thin and pliable. Mild tricuspid regurgitation. RVSP is 55 mmHg plus RA pressure. Pulmonic Valve The pulmonary valve is normal in structure. Trace pulmonic regurgitation. Great Vessels The aortic root is not well-visualized. The IVC is not well-visualized. Pericardium There is no pericardial effusion. Other Information Study Quality: Fair Conclusion Normal biventricular systolic function. Marked increase in LV wall thickness (IVSd 1.5 cm). Grade 3 diastolic dysfunction. Biatrial dilation. s/p AVR. Mild AI. Acceptable transaortic gradient parameters. Moderate MAC and thickened MV leaflets. Mild MR. Mitral stenosis is likely present, but cannot be fully estimated in the absence of spectral MV inflow Doppler in the study. Mild TR. Markedly elevated RVSP 55 mmHg + RA pressure. In the setting of marked increased LV wall thickness, diastolic dysfunction, and persistent symptoms, further outpatient evaluation for infiltrative disease with cardiac MRI (amyloidosis protocol), PYP nuclear scan, and lab testing is recommended to rule out amyloidosis. Electronically signed by : Jossie Vázquez MD 04/10/2023 10:38:57
--- NOTE | 2023-04-06 07:31 | PC.NURSE ---
patient very pleasant; does ask frequently if are you going to kick me out. Patient VS WNL tolerated Rocephen ABX; urinating well with no c/o pain or discomfort.
[2023-04-06 07:33] LABS: Chloride 107 mmol/L (98-107); Sodium 141 mmol/L (136-145)
[2023-04-06 07:36] LABS: Blood Urea Nitrogen 16 mg/dl (7-17); Creatinine Clearance Estimated 64 mL/min (50-200); Estimated Glomerular Filt Rate 45 ml/min (>60); GFR (African American) 54 ML/MIN (>60)
[2023-04-06 07:37] LABS: Anion Gap 3.6 mEq/L (5-15); Calcium 9.9 mg/dl (8.4-10.2); Carbon Dioxide 33 mmol/L (22.0-30.0); Glucose 107 mg/dl (74-100)
[2023-04-06 07:41] LABS: Basophils % 0.5 % (0.1-2.0); Eosinophils # 0.3 K/mm3 (0.0-0.4); Eosinophils % 5.4 % (0.1-12.0); Hematocrit 35.5 % (37.0-47.0); Lymphocytes # 1.4 K/mm3 (0.7-4.5); Lymphocytes % 23.7 % (10-50); Mean Corpuscular HGB Conc 33.6 g/dL (31.8-35.4); Mean Corpuscular Hemoglobin 32.2 pg (27.0-31.2); Mean Corpuscular Volume 96.1 fl (81-99); Mean Platelet Volume 11.1 fl (7.4-10.4); Monocytes # 0.5 K/mm3 (0.1-1.0); Monocytes % 7.6 % (1.7-9.3); Neutrophils # 3.8 K/mm3 (1.8-7.8); Neutrophils % 62.9 % (37.0-80.0); Platelet Count 132 K/mm3 (142-424); Red Cell Distribution Width 14.5 % (11.5-17.5); White Blood Count 6.1 K/mm3 (4.8-10.8)
[2023-04-06 07:43] LABS: Potassium 2.6 mmoL/L (3.5-5.1)
[2023-04-06 08:00] VITALS: BP 148/90; PULSE 60; PULSE 93; RESP 20; TEMP 36.3; O2SAT 93
--- NOTE | 2023-04-06 10:31 | [facility].PTEV ---
Physical Therapy Evaluation Rehab PT IP Evaluation Start: 04/05/23 18:22 Freq: ONCE Status: Active Protocol: Document 04/06/23 10:25 LOCO (Rec: 04/06/23 10:31 LOCO [id number]) Subjective/History History History Per H&P: This is a 67-year-old female, with questionable dementia, history of diabetes with dietary management, hypertension, history of aortic valve replacement on Eliquis, brought in by sister to the emergency room for apparently altered mental status. Currently patient is AOx4, able to communicate her needs. Patient lives by herself. patient reported last thing she remembered was last night going to bed at home. Then the next day she remembers is being picked up by sister ambulatory into the emergency room. On ER documentation, apparently patient was at the sister house, concerning feeling safe because of her memory issues. History is limited as he is unable to communicate with any other family members. She denies any headache abdominal pain chest pain urinary symptoms. She preferred to have order shortness of breath that increased on exertion. admitted for further management and workup. Subjective Subjective I need to use the restroom PLOF per pt report: Lives alone in single story home. IND with ADLs, driving, and functional mobility with no AD . Has a sister that lives nearby. Pt intermittently emotional during eval d/t pt reporting I'm confused . New diagnosis of cancer in past 12 No months? Rehab PT IP Eval Objective Appearance Patient Behavior Appropriate,Cooperative Patient Orientation Person,Place,Situation Difficulty following instructions none Speech Pattern Clear Ambulation Patient Able to Ambulate Yes Ambulation Observation IP General Gait Pattern Observation Wide Based Gait Ambulation Distance (feet) 15 Ambulation Assistive Device None Ambulation Ability Contact Guard/Hand Hold Transfers Bed Transfer Ability Supervision/Stand by Sit to Stand Bed Transfer Ability Contact Guard/Hand Hold Rehab PT IP prob,goals,plan Problems Date of Evaluation: 04/06/23 PT IP Problems Transfers,Balance,Self care Rehab Potential Rehab Potential Good Equipment Needs Assistive Devices None / NA Plan PT Intervention Plan Bed Mobility,Transfers,Safety, Therapeutic Exercise Other Intervention Plan 1-2 PT Plan Frequency Daily Duration LOS Discharge Goals Bed Transfer Ability Independent Sit to Stand Chair Transfer Ability Independent Ambulation Assistive Device None Ambulation Distance (feet) 20 Discharge Plan PT Discharge Plan Pt would benefit from skilled PT while at [facility] to prevent further functional decline and maximize safety with mobility . Pt safe to d/c home when deemed medically necessary d/t current level of mobility, home set-up, and nearby family support. Eval Complexity Eval Charge Codes 22772 - Moderate Complexity PHYSICIAN CERTIFICATION: I certify the specified therapy services for Venora [place] are required, authorized, and reviewed every 30 days.
[2023-04-06] MEDS: KCl 10mEq/100ml 100 ML 100 MEQ IV ×4 (10:42→16:08)
[2023-04-06] MEDS: POTASSIUM CHLORIDE 20MEQ TAB 40 MEQ PO (10:42)
--- NOTE | 2023-04-06 11:06 | SW/DCPLANNER ---
Addendum entered by [facility] 04/09/23 13:11: I did speak w/ patient's sister at patient's request: agreeable for information to [facility]. I will fax information and ask facilities to follow up w/ patient's sister (Dione). Addendum entered by [facility] 04/09/23 12:22: Patient has called back expressing an interest in placement at [facility]: patient information has been faxed at this time. Addendum entered by [facility] 04/09/23 10:22: Marya w/ [facility] stated that services will begin this week for this patient. Addendum entered by [facility] 04/09/23 09:06: Patient information/order has been faxed to [facility] this AM. Original Note: I spoke w/ this patient regarding plans once medically stable for discharge. PT evaluated patient and recommended returning home w/ home health services. Patient was able to tell me her name, , location and family members. Patient did express an interest in [facility] placement. Patient and I discussed placement and private pay rate: patient then stated that she would rather return home. Patient is agreeable to home health services. I also discussed speaking w/ [facility] to see if she is candidate for any programs: patient is agreeable. I attempted to contact patient's sister while in the room w/ patient to discuss discharge plans: no answer at this time. I will continue to follow up w/ patient and set up services once medically stable for discharge. Discharge date is unknown at this time.
--- NOTE | 2023-04-06 11:44 | [facility].OTEV ---
OT Inpatient Evaluation Rehab OT IP Evaluation Start: 04/05/23 18:22 Freq: ONCE Status: Active Protocol: Document 04/06/23 10:55 MIKE (Rec: 04/06/23 11:44 MIKE [id number]) Rehab OT IP Assessment Subjective History This is a 67-year-old female, with questionable dementia, history of diabetes with dietary management, hypertension, history of aortic valve replacement on Eliquis, brought in by sister to the emergency room for apparently altered mental status. Currently patient is AOx4, able to communicate her needs. Patient lives by herself. patient reported last thing she remembered was last night going to bed at home. Then the next day she remembers is being picked up by sister ambulatory into the emergency room. On ER documentation, apparently patient was at the sister house, concerning feeling safe because of her memory issues. History is limited as he is unable to communicate with any other family members. She denies any headache abdominal pain chest pain urinary symptoms. She preferred to have order shortness of breath that increased on exertion. admitted for further management and workup. Patient lives alone. Independent with ADLs and fx'l mobility. Patient has assist with lawn care. Subjective I need to use the restroom. Assisted Patient from EOB-> stand->restroom with CGA. No LOB noted. Patient completed toilet transfer and clothing mgt SBA. Assisted Patient back to EOB with CGA. No LOB noted . Patient verbalize, I just feel confused. However patient was oriented x4 during initial evaluation. Objective Patient Orientation Person,Place,Name,Age Right Upper Extremity Gross ROM WFL Left Upper Extremity Gross ROM WFL Bed Mobility bed mobility - supine/sit Assist Level Contact Guard/Hand Hold Transfer Training Sit/Stand/Pivot Transfer Assist Level Contact Guard/Hand Hold Chair Transfer Ability Contact Guard/Hand Hold Chair Transfer Technique Sit to/from Ambulatory Chair Transfer Assistive Devices None Performing Toilet Hygiene Ability Independent Overall Commode/Toilet Transfer Ability Standby Assistance Commode/Toilet Transfer Technique Sit to/from Ambulatory Rehab OT IP prob,goals,plan Problems Date of Evaluation: 04/06/23 OT IP Problems Bed Mobility,Transfers,Balance ,Self care,Safety Rehab Potential Rehab Potential Good Equipment Needs Assistive Devices None / NA Plan OT intervention Plan Bed Mobility,Transfers,Balance ,Self care,Safety,Therapeutic Exercise OT Plan Frequency Daily Duration LOS Discharge Goals Bed Mobility Ability Independent Sit to Stand Chair Transfer Ability Independent Chair Transfer Ability Independent Chair Transfer Technique Sit to/from Ambulatory Discharge Plan OT Discharge Plan Recommend patient to return home after medical d/c. REcommed services. Eval Complexity Eval Charge Codes 25336 - Low Complexity PHYSICIAN CERTIFICATION: I certify the specified therapy services for [place] are required, authorized, and reviewed every 30 days.
--- NOTE | 2023-04-06 11:49 | P.CONCA_ITS ---
History of Present Illness History of Present Illness Consult date: 04/06/23 Requesting physician: Mike Cuevas Chief complaint: altered mental status History of present illness: History is obtained from medical record due to patient's confusion: This is a 67-year-old white female with past medical history of dementia, diabetes with dietary management, hypertension, aortic valve replacement on Eliquis was brought to emergency department per sister with complaints of altered mental status. At 1 point there was family in the emergency department which collaborated story of confusion. Upon my exam patient reports she does not really know why she is at the hospital which is brought in by family members. She is alert and oriented to person, place, time, date but does not understand why she is in the hospital. She denies chest pain, shortness of air, nausea, vomiting or pain. EKG reviewed at time of admission shows to be in a A-fib at a controlled rate of [address] elevation in aVR and depression noted in leads II, V5 and V6. Labs as follow: Sodium 143, potassium 3.5, creatinine 1.1, initial troponin 0.05 and a proBNP of 5680. Repeat labs this morning show potassium decreased to 2.6. Troponin remains 0.05. Chest x-ray was obtained which was negative for acute cardiopulmonary process and a CT head shows atrophy with mild periventricular chronic ischemic changes noted but no acute intracranial abnormality identified. Patient was admitted for acute encephalopathy and elevated troponin. [facility] Disclaimer: The information contained in this section may have been updated after the patient was seen, as this information can be updated by other users. Medical History (Updated 04/05/23 @ 21:41 by Olman Vallecillo APRN) Aortic stenosis Breast cancer Diabetes mellitus Hypertension Paroxysmal atrial fibrillation Surgical History (Updated 04/06/23 @ 12:00 by Adrianna Real APRN) Aortic valve replaced H/O heart valve replacement with bioprosthetic valve H/O mastectomy H/O: hysterectomy Hx of cholecystectomy Family History Mother Coronary artery disease Father Heart attack Sister Hypertension Hyperlipidemia Coronary artery disease Diabetes Social History Smoking Status: Former smoker second hand exposure: No alcohol intake: never counseling given: No current occupational status: unemployed Travel in the last 8 weeks: None household members: none housing: house lives independently: Yes number of children: 0 number of grandchildren: 0 Hx Recent Travel: No Review of Systems Review of Systems Review of systems:: pertinent systems reviewed and negative unless documented below Exam Data for Last 24 hours Vital signs and Labs for Last 24 Hours: Temp Pulse Resp BP Pulse Ox O2 Del Method 97.4 F L 93 H 20 148/90 H 93 L Room Air 04/06/23 08:00 04/06/23 08:00 04/06/23 08:00 04/06/23 08:00 04/06/23 08:00 04/06/23 11:00 Laboratory Results - last 24 hr 04/05/23 15:10: Sodium 143, Potassium 3.5, Chloride 108 H, Carbon Dioxide 28, Anion Gap 10.5, BUN 16, Creatinine 1.10 H, Estimated Creat Clear 75, Estimated GFR 49 L, Est GFR ( Amer) 60, Glucose 123 H, Calcium 10.5 H, Phosphorus 2.7, Magnesium 1.8, Total Bilirubin 1.8 H, AST 38 H, ALT 24, Alkaline Phosphatase 113, Ammonia 19, Troponin I 0.05 H, NT-Pro-B Natriuret Pep 5680 H, Total Protein 7.1, Albumin 3.9, Globulin 3.2, Albumin/Globulin Ratio 1.2, TSH 1.12 04/05/23 15:20: VBG pH 7.41, VBG pCO2 41.2, VBG pO2 38.0, VBG HCO3 25.4, VBG Total CO2 26.6, VBG O2 Saturation 69.6, VBG Base Excess 0.7, Urine Color Yellow, Urine Appearance Clear, Urine pH 7.0, Ur Specific [place] 1.015, Urine Protein Trace, Urine Glucose (UA) Negative, Urine Ketones Negative, Urine Blood Negative, Urine Nitrate Negative, Urine Bilirubin 1+ A, Urine Urobilinogen 2.0, Ur Leukocyte Esterase 1+ A, Urine RBC Occasional, Urine WBC 5-10, Ur Squamous Epith Cells 3-5, Urine Bacteria Trace 04/05/23 17:00: WBC 7.4, RBC 4.11 L, Hgb 13.5, Hct 40.0, MCV 97.4, MCH 32.8 H, MCHC 33.7, RDW 14.3, Plt Count 158, MPV 11.1 H, Neut % (Auto) 77.9, Lymph % (Auto) 12.6, [place] % (Auto) 6.1, Eos % (Auto) 2.9, Baso % (Auto) 0.4, Neut # (Auto) 5.8, Lymph # (Auto) 0.9, [place] # (Auto) 0.5, Eos # (Auto) 0.2, Baso # (Auto) 0.0 04/05/23 17:14: Troponin I 0.04 H 04/05/23 20:55: Troponin I 0.05 H 04/06/23 06:29: WBC 6.1, RBC 3.70 L, Hgb 12.0 L D, Hct 35.5 L, MCV 96.1, MCH 32.2 H, MCHC 33.6, RDW 14.5, Plt Count 132 L, MPV 11.1 H, Neut % (Auto) 62.9, Lymph % (Auto) 23.7, [place] % (Auto) 7.6, Eos % (Auto) 5.4, Baso % (Auto) 0.5, Neut # (Auto) 3.8, Lymph # (Auto) 1.4, [place] # (Auto) 0.5, Eos # (Auto) 0.3, Baso # (Auto) 0.0, Sodium 141, Potassium 2.6 L* D, Chloride 107, Carbon Dioxide 33 H, Anion Gap 3.6 L, BUN 16, Creatinine 1.20 H, Estimated Creat Clear 64, Estimated GFR 45 L, Est GFR ( Amer) 54 L, Glucose 107 H, Calcium 9.9 I & O for Last 24 hours: Intake & Output 04/03/23 04/04/23 04/05/23 04/06/23 23:59 23:59 23:59 23:59 Intake Total 410 / 410 Output Total 0 / 5 5 / 5 Balance 0 / -5 405 / 405 Weight 197 lb 8 oz 199 lb 6 oz Constitutional Constitutional: no acute distress *Routine Respiratory Exam Respiratory: Present CTA bilaterally and symmetric chest movement *Routine Cardiovascular Exam Cardiovascular: Present RRR, Normal S1 and Normal S2 *Routine Abdominal Exam Abdominal: Present soft and normoactive bowel sounds; Absent tenderness *Routine Extremities Exam Extremities: Present full ROM and normal capillary refill; Absent edema *Routine Skin Exam Skin: Present intact, dry and warm Detailed Neck Exam: Thyroids Thyroid: Absent bruit Meds Home Medications and Allergies Home Medications Medication Instructions Recorded Confirmed Type apixaban 5 mg tablet (Eliquis) 5 mg PO BID 10/18/21 04/06/23 History multivitamin 1 tab PO DAILY 10/18/21 04/06/23 History biotin 5,000 mcg disintegrating 10,000 mcg PO DAILY 10/25/21 04/06/23 History tablet bupropion HCl 300 mg 24 hr tablet, 300 mg PO DAILY #90 tabs 10/25/21 04/06/23 Rx extended release cholecalciferol (vitamin D3) 25 25 mcg PO DAILY #90 caps 10/25/21 04/06/23 Rx mcg (1,000 unit) capsule furosemide 20 mg tablet 20 mg PO DAILY #90 tabs 10/25/21 04/06/23 Rx losartan 50 mg tablet 50 mg PO DAILY HTN #90 tabs 10/25/21 04/06/23 Rx potassium chloride 10 mEq 10 meq PO DAILY #90 caps 10/25/21 04/06/23 Rx capsule,extended release sertraline 100 mg tablet 100 mg PO DAILY Depression #90 tabs 10/25/21 04/06/23 Rx albuterol sulfate 90 mcg/actuation 1 puff inhalation QID PRN 10/26/21 04/06/23 Rx aerosol inhaler (Ventolin HFA) shortness of breath or wheezing #18 grams sotalol 80 mg tablet 80 mg PO BID 90 days #180 tabs 06/07/22 04/06/23 Rx New Prescriptions to Start Prescriptions: Allergies Allergy/AdvReac Type Severity Reaction Status Date / Time Sulfa (Sulfonamide Allergy Unknown Verified 03/01/22 13:07 Antibiotics) allergy reaction acetaminophen AdvReac Vomiting Verified 04/06/23 07:13 [From Darvocet-N 100] propoxyphene AdvReac Vomiting Verified 04/06/23 07:13 [From Darvocet-N 100] Assessment and Plan *Assessment and plan (1) Encephalopathy acute: Status: Acute Category: Medical Code(s): G93.40 - Encephalopathy, unspecified (2) Paroxysmal atrial fibrillation: Status: Acute Category: Medical Code(s): I48.0 - Paroxysmal atrial fibrillation (3) Elevated troponin: Status: Acute Category: Medical Code(s): R79.89 - Other specified abnormal findings of blood chemistry Plan Acute encephalopathy -Defer to primary service -CT head negative for acute process Paroxysmal atrial fibrillation [id number] or greater than 2 -Currently rate controlled -Continue Eliquis 5 mg p.o. twice daily and sotalol 80 mg p.o. twice daily History of aortic valve replacement -Bioprosthetic valve, cannot obtain details at this point Acute myocardial injury -Troponin 0.05, 0.04, 0.05 -EKG shows nonspecific ST changes -Echocardiogram 224 shows normal biventricular function with an ejection fraction of 60%, biatrial dilation, mild MR, RVSP around 50. Thick LV wall and some systolic anterior motion noted concerning for amyloid or HCM. Recommend outpatient cardiac MRI. -Recommend outpatient ischemic evaluation Acute HFpEF --Echocardiogram 224 shows normal biventricular function with an ejection fraction of 60%, biatrial dilation, mild MR, RVSP around 50. Thick LV wall and some systolic anterior motion noted concerning for amyloid or HCM. Recommend outpatient cardiac MRI. -proBNP 5680 -Start Jardiance 10 mg daily -Give Lasix 40 mg IV daily x 1. Diurese with caution due to concern for possible outflow obstruction. Monitor blood pressure carefully and diurese as needed. -Monitor I's and O's CV summary 04/06/2023: Recommend diuresing patient's with Lasix 40 mg IV daily x 1. Continue to monitor. Patient will need an outpatient cardiac MRI to further evaluate for amyloid versus HCM. Patient will need outpatient ischemic evaluation. cardiology will continue to follow along while inpatient. Please contact Dr. Donovan over the weekend for any additional concerns.
--- NOTE | 2023-04-06 11:53 | P.CONPHA_ITS ---
Pharmacy Intervention Comments: Attempted to clarify medications with patient, who stated she gets her medications from [facility] but did not know anything else. After calling [facility], another local pharmacy that has filled for her before ([facility] her primary care provider's office ([facility]), and finally her smasher, I was able to get the smasher's office ([facility]) to fax a med list which matched with everything in initial intake. Per smasher office, patient has not been seen since July [address] Hendrix. [facility] Primary [facility] said she had not been seen there since February 2022 (Dr. Rosas Alanis). She said her sister Dione may know more, but call was forwarded. Updated Home med rec based on fax received from cardiology.
--- NOTE | 2023-04-06 11:53 | HMH.PHAINT1 ---
Pharmacy Intervention Comments: Attempted to clarify medications with patient, who stated she gets her medications from [facility] but did not know anything else. After calling [facility], another local pharmacy that has filled for her before ([facility] her primary care provider's office ([facility]), and finally her scutcher tender, I was able to get the scutcher tender's office ([facility]) to fax a med list which matched with everything in initial intake. Per scutcher tender office, patient has not been seen since July [address] Hendrix. [facility] Primary Care said she had not been seen there since February 2022 (Dr. Rosas Alanis). She said her sister Dione may know more, but call was forwarded. Updated Home med rec based on fax received from cardiology.
[2023-04-06 12:00] VITALS: BP 143/72; PULSE 60; PULSE 66; RESP 18; TEMP 36.5; O2SAT 96
[2023-04-06 12:08] LABS: POC Glucose,Bedside 114 (70-110)
[2023-04-06] MEDS: FUROSEMIDE 40MG/4ML VIAL 40 MG IV (14:48)
[2023-04-06 16:00] VITALS: PULSE 90
--- NOTE | 2023-04-06 16:18 | P.PN_ITS ---
Subjective *Date: 04/06/23 *Time: 16:18 Interval history: patient was seen and evaluated at the bedside. No reported acute events overnight, denies chest pain, shortness of breath, nausea, vomiting, abdominal pain. Patient mentions she is not sure what made her come and she do not recall the events overnight Exam Data for Last 24 hours Vital signs and Labs for Last 24 Hours: Temp Pulse Resp BP Pulse Ox O2 Del Method 97.7 F 66 18 143/72 H 96 Room Air 04/06/23 12:00 04/06/23 12:00 04/06/23 12:00 04/06/23 12:00 04/06/23 12:00 04/06/23 15:00 Laboratory Results - last 24 hr 04/05/23 15:10: NT-Pro-B Natriuret Pep 5680 H, TSH 1.12 04/05/23 17:00: WBC 7.4, RBC 4.11 L, Hgb 13.5, Hct 40.0, MCV 97.4, MCH 32.8 H, MCHC 33.7, RDW 14.3, Plt Count 158, MPV 11.1 H, Neut % (Auto) 77.9, Lymph % (Auto) 12.6, [place] % (Auto) 6.1, Eos % (Auto) 2.9, Baso % (Auto) 0.4, Neut # (Auto) 5.8, Lymph # (Auto) 0.9, [place] # (Auto) 0.5, Eos # (Auto) 0.2, Baso # (Auto) 0.0 04/05/23 17:14: Troponin I 0.04 H 04/05/23 20:55: Troponin I 0.05 H 04/06/23 06:29: WBC 6.1, RBC 3.70 L, Hgb 12.0 L D, Hct 35.5 L, MCV 96.1, MCH 32.2 H, MCHC 33.6, RDW 14.5, Plt Count 132 L, MPV 11.1 H, Neut % (Auto) 62.9, Lymph % (Auto) 23.7, [place] % (Auto) 7.6, Eos % (Auto) 5.4, Baso % (Auto) 0.5, Neut # (Auto) 3.8, Lymph # (Auto) 1.4, [place] # (Auto) 0.5, Eos # (Auto) 0.3, Baso # (Auto) 0.0, Sodium 141, Potassium 2.6 L* D, Chloride 107, Carbon Dioxide 33 H, Anion Gap 3.6 L, BUN 16, Creatinine 1.20 H, Estimated Creat Clear 64, Estimated GFR 45 L, Est GFR ( Amer) 54 L, Glucose 107 H, Calcium 9.9 04/06/23 11:47: POC Glucose 114 H I & O for Last 24 hours: Intake & Output 04/03/23 04/04/23 04/05/23 04/06/23 23:59 23:59 23:59 23:59 Intake Total 910 / 910 Output Total 0 Balance 0 5 905 / 905 Weight 89.584 kg 90.435 kg Constitutional Constitutional: no acute distress *Routine HEENT Exam Head: Present normocephalic Eye: Present EOMI and PERRL ENT: Present mucous membranes moist *Routine Neck Exam Neck: Present supple; Absent lymphadenopathy *Routine Respiratory Exam Respiratory: Present CTA bilaterally *Routine Cardiovascular Exam Cardiovascular: Present RRR *Routine Abdominal Exam Abdominal: Present soft and normoactive bowel sounds; Absent tenderness *Routine Extremities Exam Extremities: Absent cyanosis, clubbing or edema *Routine Skin Exam Skin: Present warm; Absent rash *Routine Neurological Exam Neurological: Present alert and oriented X3 Assessment and Plan *Assessment and plan (1) Encephalopathy acute: Status: Acute Category: Medical Code(s): G93.40 - Encephalopathy, unspecified (2) Acute UTI: Status: Acute Category: Medical Code(s): N39.0 - Urinary tract infection, site not specified (3) Elevated troponin: Status: Acute Category: Medical Code(s): R79.89 - Other specified abnormal findings of blood chemistry (4) CHF exacerbation: Status: Acute Qualifiers: Heart failure type: unspecified Qualified Code(s): I50.9 - Heart failure, unspecified Category: Medical Code(s): I50.9 - Heart failure, unspecified (5) Diabetes mellitus: Status: Acute Qualifiers: Diabetes mellitus type: type 2 Diabetes mellitus group home insulin use: without manager terminal use Diabetes mellitus complication status: with other specified complication Qualified Code(s): E11.69 - Type 2 diabetes mellitus with other specified complication Category: Medical Code(s): E11.9 - Type 2 diabetes mellitus without complications (6) Hypertension: Status: Acute Qualifiers: Hypertension type: unspecified Qualified Code(s): I10 - Essential (primary) hypertension Category: Medical Code(s): I10 - Essential (primary) hypertension Plan 67-year-old female, with questionable dementia, history of diabetes with dietary management, hypertension, history of cardiac valve replacement on Eliquis, brought in by sister to the emergency room for apparently altered mental status. on arrival, She does have lower extremity nonpitting edema. Patient alert and oriented to person, but not place or time. Workup independently interpreted. Patient has nonactionable CBC with normal lites, hemoglobin, platelets. Chemistry with mild creatinine bump 1.1, BUN normal. She does have a troponin elevation 0.05 with associated BNP 5700. CT head without acute intracranial abnormality. However, atrophy and mild periventricular chronic ischemic changes. Chest x-ray with cardiomegaly as well as cephalization of pulmonary vessels concerning for early pulmonary edema. Findings discussed with the ER for admission. Plan as follow: -Acute encephalopathy: - improved acute UTI or syncope CTA of the head done. Concerning for mild chronic ischemic changes. Not acute intracranial process UA culture pending Started on ceftriaxone 1 g daily -Elevated troponin: Likely secondary to oxygen demand. Suspected CHF. Elevated BNP Checks x-ray showing early signs of pulmonary edema One-time dose of Lasix given Continue diuresis Echocardiogram ordered Watch for electrolyte imbalance -History of diabetes: Dietary management Accu-Chek as needed -Hypertension: Resume home losartan sotalol Resume home bupropion and sertraline for depression Patient on Eliquis. Low concern for DVT. Protonix for GI bleed prophylaxis Full code
[2023-04-06] MEDS: ALPRAZolam 0.5MG TABLET 0.5 MG PO (17:22)
[2023-04-06] MEDS: IRBESARTAN 75MG TABLET 75 MG PO (17:25)
[2023-04-06] MEDS: SERTRALINE 100MG TABLET 100 MG PO (17:25)
[2023-04-06 17:44] LABS: POC Glucose,Bedside 106 (70-110)
[2023-04-06 20:00] VITALS: BP 143/79; PULSE 63; PULSE 75; RESP 17; TEMP 36.3; O2SAT 95
[2023-04-06] MEDS: CEFTRIAXONE 1 GM 1 GM in 0.9 % SODIUM CHLORIDE 50 ML IV (20:39)
[2023-04-06] MEDS: SOTALOL 80MG TABLET 80 MG PO (20:39)
[2023-04-06] MEDS: APIXABAN 5MG TABLET 5 MG PO (20:39)
[2023-04-06 20:41] LABS: POC Glucose,Bedside 98 (70-110)
[2023-04-07] VITALS: BP 132/73; PULSE 60; PULSE 61; RESP 18; TEMP 37; O2SAT 93
[2023-04-07 04:00] VITALS: BP 134/79; PULSE 60; PULSE 69; RESP 18; TEMP 36.7; O2SAT 94; BMI 323075.7
--- NOTE | 2023-04-07 04:59 | PC.NURSE ---
Patient has had a great shift. Has been up the bathroom multiple times and is very steady on her feet. Patient is AxO x4, but will ask the same question multiples times and not remember that she has asked it previously. Patent is very anxious about her sister not being able to pick her up at the hospital. RN and SPEECH THERAPIST TECHNICIAN reassured her that we will make sure she has a safe way to discharge before leaving. No other issues through the night
[2023-04-07 05:48] LABS: POC Glucose,Bedside 105 (70-110)
[2023-04-07 07:12] LABS: Basophils % 0.6 % (0.1-2.0); Eosinophils # 0.4 K/mm3 (0.0-0.4); Eosinophils % 6.9 % (0.1-12.0); Hematocrit 36.7 % (37.0-47.0); Hemoglobin 12.3 g/dL (12.2-16.2); Lymphocytes # 1.3 K/mm3 (0.7-4.5); Lymphocytes % 20.4 % (10-50); Mean Corpuscular HGB Conc 33.5 g/dL (31.8-35.4); Mean Corpuscular Hemoglobin 32.6 pg (27.0-31.2); Mean Platelet Volume 10.8 fl (7.4-10.4); Monocytes # 0.5 K/mm3 (0.1-1.0); Monocytes % 7.1 % (1.7-9.3); Neutrophils # 4.1 K/mm3 (1.8-7.8); Platelet Count 146 K/mm3 (142-424); Red Blood Count 3.79 M/mm3 (4.20-5.40); Red Cell Distribution Width 14.5 % (11.5-17.5); White Blood Count 6.4 K/mm3 (4.8-10.8)
[2023-04-07 07:15] LABS: Chloride 104 mmol/L (98-107); Potassium 3.6 mmoL/L (3.5-5.1); Sodium 137 mmol/L (136-145)
[2023-04-07 07:18] LABS: Anion Gap 3.6 mEq/L (5-15); Blood Urea Nitrogen 18 mg/dl (7-17); Calcium 9.8 mg/dl (8.4-10.2); Carbon Dioxide 33 mmol/L (22.0-30.0); Creatinine Clearance Estimated 59 mL/min (50-200); Estimated Glomerular Filt Rate 41 ml/min (>60); GFR (African American) 49 ML/MIN (>60); Glucose 112 mg/dl (74-100)
[2023-04-07 07:46] VITALS: BP 113/63; PULSE 62; RESP 17; TEMP 36.4; O2SAT 94
[2023-04-07 08:00] VITALS: PULSE 60
[2023-04-07] MEDS: CHOLECALCIFEROL 1,000 UNITS (25MCG) TABLET 25 MCG PO (09:23)
[2023-04-07] MEDS: IRBESARTAN 75MG TABLET 75 MG PO (09:24)
[2023-04-07] MEDS: SERTRALINE 100MG TABLET 100 MG PO (09:24)
[2023-04-07] MEDS: buPROPion HCl SR 150MG TAB 150 MG PO (09:24)
[2023-04-07] MEDS: APIXABAN 5MG TABLET 5 MG PO (09:24)
[2023-04-07] MEDS: SOTALOL 80MG TABLET 80 MG PO (09:24)
--- NOTE | 2023-04-07 11:06 | EXP.DC.SUM ---
General Admission date:: 04/06/23 Discharge date: 04/07/23 HPI HPI HPI: This is a 67-year-old female, with questionable dementia, history of diabetes with dietary management, hypertension, history of aortic valve replacement on Eliquis, brought in by sister to the emergency room for apparently altered mental status. Currently patient is AOx4, able to communicate her needs. Patient lives by herself. patient reported last thing she remembered was last night going to bed at home. Then the next day she remembers is being picked up by sister ambulatory into the emergency room. On ER documentation, apparently patient was at the sister house, concerning feeling safe because of her memory issues. History is limited as he is unable to communicate with any other family members. She denies any headache abdominal pain chest pain urinary symptoms. She preferred to have order shortness of breath that increased on exertion. admitted for further management and workup. Hospital Course Hospital Course Hospital Course: 67-year-old female, with questionable dementia, history of diabetes with dietary management, hypertension, history of cardiac valve replacement on Eliquis, brought in by sister to the emergency room for apparently altered mental status. on arrival, She does have lower extremity nonpitting edema. Patient alert and oriented to person, but not place or time. Workup independently interpreted. Patient has nonactionable CBC with normal lites, hemoglobin, platelets. Chemistry with mild creatinine bump 1.1, BUN normal. She does have a troponin elevation 0.05 with associated BNP 5700. CT head without acute intracranial abnormality. However, atrophy and mild periventricular chronic ischemic changes. Chest x-ray with cardiomegaly as well as cephalization of pulmonary vessels concerning for early pulmonary edema. Findings discussed with the ER for admission. Plan as follow: Patient was seen and evaluated at the bedside on the day of discharge. Patient wishes to be discharged. All patient questions were answered and patient was given time to ask questions. Patient was discharged in stable condition. Patient understands that she can return to ER in case of any sudden changes in health. Total time spent on DC - 38 mins -Acute encephalopathy: - improved acute UTI or syncope - stable DC on oral Abx -Elevated troponin: non ischemic, ACS ruled out, no chest pain, no SOB, no N/V, likely type 2 NV -History of diabetes: Dietary management Accu-Chek as needed -Hypertension: Resume home losartan sotalol Exam Data for Last 24 hours Vital signs and Labs for Last 24 Hours: Temp Pulse Resp BP Pulse Ox O2 Del Method 97.5 F L 60 17 113/63 94 L Room Air 04/07/23 07:46 04/07/23 08:00 04/07/23 07:46 04/07/23 07:46 04/07/23 07:46 04/07/23 09:00 Laboratory Results - last 24 hr 04/06/23 11:47: POC Glucose 114 H 04/06/23 16:37: POC Glucose 106 04/06/23 20:34: POC Glucose 98 04/07/23 05:39: POC Glucose 105 04/07/23 06:43: WBC 6.4, RBC 3.79 L, Hgb 12.3, Hct 36.7 L, MCV 97.0, MCH 32.6 H, MCHC 33.5, RDW 14.5, Plt Count 146, MPV 10.8 H, Neut % (Auto) 65.0, Lymph % (Auto) 20.4, [place] % (Auto) 7.1, Eos % (Auto) 6.9, Baso % (Auto) 0.6, Neut # (Auto) 4.1, Lymph # (Auto) 1.3, [place] # (Auto) 0.5, Eos # (Auto) 0.4, Baso # (Auto) 0.0, Sodium 137, Potassium 3.6 D, Chloride 104, Carbon Dioxide 33 H, Anion Gap 3.6 L, BUN 18 H, Creatinine 1.30 H, Estimated Creat Clear 59, Estimated GFR 41 L, Est GFR ( Amer) 49 L, Glucose 112 H, Calcium 9.8 I & O for Last 24 hours: Intake & Output 04/04/23 04/05/23 04/06/23 04/07/23 23:59 23:59 23:59 23:59 Intake Total 1300 / 1300 240 / 240 Output Total 0 / 5 260 / 260 300 / 300 Balance 0 / -5 1040 / 1040 -60 / -60 Weight 89.584 kg 90.435 kg 90.804 kg Constitutional Constitutional: no acute distress *Routine HEENT Exam Head: Present normocephalic Eye: Present EOMI and PERRL ENT: Present mucous membranes moist *Routine Neck Exam Neck: Present supple; Absent lymphadenopathy *Routine Respiratory Exam Respiratory: Present CTA bilaterally *Routine Cardiovascular Exam Cardiovascular: Present RRR *Routine Abdominal Exam Abdominal: Present soft and normoactive bowel sounds; Absent tenderness *Routine Extremities Exam Extremities: Absent cyanosis, clubbing or edema *Routine Skin Exam Skin: Present warm; Absent rash *Routine Neurological Exam Neurological: Present alert and oriented X3 Results Data Completed and Pending Labs on day of discharge: Labs from last 24 hours 04/07/23 04/07/23 04/06/23 06:43 05:39 20:34 WBC 6.4 RBC 3.79 L Hgb 12.3 Hct 36.7 L MCV 97.0 MCH 32.6 H MCHC 33.5 RDW 14.5 Plt Count 146 MPV 10.8 H Neut % (Auto) 65.0 Lymph % (Auto) 20.4 [place] % (Auto) 7.1 Eos % (Auto) 6.9 Baso % (Auto) 0.6 Neut # (Auto) 4.1 Lymph # (Auto) 1.3 [place] # (Auto) 0.5 Eos # (Auto) 0.4 Baso # (Auto) 0.0 Sodium 137 Potassium 3.6 D Chloride 104 Carbon Dioxide 33 H Anion Gap 3.6 L BUN 18 H Creatinine 1.30 H Estimated Creat Clear 59 Estimated GFR 41 L Est GFR ( Amer) 49 L Glucose 112 H POC Glucose 105 98 Calcium 9.8 04/06/23 04/06/23 16:37 11:47 WBC RBC Hgb Hct MCV MCH MCHC RDW Plt Count MPV Neut % (Auto) Lymph % (Auto) [place] % (Auto) Eos % (Auto) Baso % (Auto) Neut # (Auto) Lymph # (Auto) [place] # (Auto) Eos # (Auto) Baso # (Auto) Sodium Potassium Chloride Carbon Dioxide Anion Gap BUN Creatinine Estimated Creat Clear Estimated GFR Est GFR ( Amer) Glucose POC Glucose 106 114 H Calcium DS: Diagnosis Discharge Diagnosis (1) Encephalopathy acute: Status: Acute Code(s): G93.40 - Encephalopathy, unspecified (2) Acute UTI: Status: Acute Code(s): N39.0 - Urinary tract infection, site not specified (3) Elevated troponin: Status: Acute Code(s): R79.89 - Other specified abnormal findings of blood chemistry (4) CHF exacerbation: Status: Acute Code(s): I50.9 - Heart failure, unspecified Qualifiers: Heart failure type: unspecified Qualified Code(s): I50.9 - Heart failure, unspecified (5) Diabetes mellitus: Status: Acute Code(s): E11.9 - Type 2 diabetes mellitus without complications Qualifiers: Diabetes mellitus type: type 2 Diabetes mellitus penitentiary insulin use: without ferry terminal supervisor use Diabetes mellitus complication status: with other specified complication Qualified Code(s): E11.69 - Type 2 diabetes mellitus with other specified complication (6) Hypertension: Status: Acute Code(s): I10 - Essential (primary) hypertension Qualifiers: Hypertension type: unspecified Qualified Code(s): I10 - Essential (primary) hypertension Meds Home Medications and Allergies Home Medications Medication Instructions Recorded Confirmed Type apixaban 5 mg tablet (Eliquis) 5 mg PO BID 10/18/21 04/06/23 History multivitamin 1 tab PO DAILY 10/18/21 04/06/23 History biotin 5,000 mcg disintegrating 10,000 mcg PO DAILY 10/25/21 04/06/23 History tablet bupropion HCl 300 mg 24 hr tablet, 300 mg PO DAILY #90 tabs 10/25/21 04/06/23 Rx extended release cholecalciferol (vitamin D3) 25 25 mcg PO DAILY #90 caps 10/25/21 04/06/23 Rx mcg (1,000 unit) capsule furosemide 20 mg tablet 20 mg PO DAILY #90 tabs 10/25/21 04/06/23 Rx losartan 50 mg tablet 50 mg PO DAILY HTN #90 tabs 10/25/21 04/06/23 Rx potassium chloride 10 mEq 10 meq PO DAILY #90 caps 10/25/21 04/06/23 Rx capsule,extended release sertraline 100 mg tablet 100 mg PO DAILY Depression #90 tabs 10/25/21 04/06/23 Rx albuterol sulfate 90 mcg/actuation 1 puff inhalation QID PRN 10/26/21 04/06/23 Rx aerosol inhaler (Ventolin HFA) shortness of breath or wheezing #18 grams sotalol 80 mg tablet 80 mg PO BID 90 days #180 tabs 06/07/22 04/06/23 Rx cefuroxime axetil 500 mg tablet 500 mg PO Q12H 5 days #10 tabs 04/07/23 Rx New Prescriptions to Start Prescriptions: cefuroxime axetil Mike Cuevas Allergies Allergy/AdvReac Type Severity Reaction Status Date / Time Sulfa (Sulfonamide Allergy Unknown Verified 03/01/22 13:07 Antibiotics) allergy reaction acetaminophen AdvReac Vomiting Verified 04/06/23 07:13 [From Darvocet-N 100] propoxyphene AdvReac Vomiting Verified 04/06/23 07:13 [From Darvocet-N 100] Discharge Plan Disposition Patient Disposition: Home, Self-Care Discharge Order Discharge Orders: Discharge Order (Routine); Ordered 04/07/23 Ordered By: Mike Cuevas Follow up Plan Follow up with: Rosas Alanis MD [Primary Care Provider] - 1 week Prescriptions/Medication Reconciliation: New cefuroxime axetil 500 mg tablet 500 mg PO Q12H 5 Days Qty: 10 0RF Continued Eliquis 5 mg tablet 5 mg PO BID multivitamin Tablet 1 tab PO DAILY biotin 5,000 mcg tablet,disintegrating 10,000 mcg PO DAILY bupropion HCl 300 mg tablet extended release 24 hr 300 mg PO DAILY Qty: 90 3RF cholecalciferol (vitamin D3) 25 mcg (1,000 unit) capsule 25 mcg PO DAILY Qty: 90 3RF furosemide 20 mg tablet 20 mg PO DAILY Qty: 90 3RF losartan 50 mg tablet 50 mg PO DAILY Qty: 90 3RF potassium chloride 10 mEq capsule, extended release 10 meq PO DAILY Qty: 90 3RF sertraline 100 mg tablet 100 mg PO DAILY Qty: 90 3RF albuterol sulfate [Ventolin HFA] 90 mcg/actuation HFA aerosol inhaler 1 puff inhalation QID PRN (Reason: shortness of breath or wheezing) Qty: 18 2RF sotalol 80 mg tablet 80 mg PO BID 90 Days Qty: 180 0RF Problem Reconciliation Problems Reviewed?: Yes Patient Discharge Instructions ACTIVITY: Ambulate as tolerated DIET: advance to your usual diet Patient Instructions: DI for Heart Failure, DI for Urinary Tract Infection (UTI) Providers Primary Care Provider: Rosas Alanis Admit Provider: Mike Cuevas Attending Provider: Mike Cuevas
--- NOTE | 2023-04-07 11:34 | PC.NURSE ---
1000: CALLED PTS CONTACT (MICHAEL) TO NOTIFY HER OF PTS DISCHARGE AND THAT PT WILL NEED A RIDE HOME. MICHAEL STATED SHE CANNOT DRIVE AND WILL TRY TO FIND HER A RIDE. 1130: CALLED MICHAEL TO INFORM HER OF PTS DISCHARGE AND FOR AN UPDATE ON THE PTS RIDE. MICHAEL SAID LET ME TALK TO VADIM . MICHAEL GETS BACK ON THE PHONE STATING IM SORRY, IM HER POA AND I SHOULDNT OF LET THINGS GET THIS BAD. NO SHE DOES NOT HAVE A RIDE AND HUNG UP THE PHONE. NOTIFIED CHARGE AND MACHINE REPAIRER MAINTENANCE THAT PT DOES NOT HAVE A RIDE.
[2023-04-07 12:00] VITALS: PULSE 65
--- NOTE | 2023-04-07 12:21 | PC.NURSE ---
PT ASKED THIS NURSE TO CALL HER NIECE DOUG FOR A RIDE. DOUG STATED SHE WILL COME GET PT.
--- NOTE | 2023-04-07 14:25 | PC.NURSE ---
pts fred Lewis stated said will be staying with her. pt left at 1300 .
--- NOTE | 2023-04-09 11:51 | CARE MANAGER ---
Contacted patient who states that she stayed with her niece and now is at her home. She states she needs to go to the long term. We discussed how it would be self-pay or Medicaid pending, but she was having difficulty understanding what this meant. She requests to go to [facility]. Shared information with JENNA Ferreira. She is going to reach out to patient and family.
== END 2023-04-07 13:00 | disposition home health service (06) | DRG 291 ==
LOC: ER 17:17 → 2ND 17:27
PROVIDERS: Student in an Organized Health Care Education/Training Program; Admitting Provider Internal Medicine; Emergency Provider Emergency Medicine; PCP Family Medicine; Visit Provider Internal Medicine
DX: I11.0 Hypertensive heart disease with heart failure (principal); I50.31 Acute diastolic (congestive) heart failure; G93.40 Encephalopathy, unspecified; N39.0 Urinary tract infection, site not specified; I35.0 Nonrheumatic aortic (valve) stenosis; I48.0 Paroxysmal atrial fibrillation; Z95.2 Presence of prosthetic heart valve; Z87.891 Personal history of nicotine dependence; E11.69 Type 2 diabetes mellitus with other specified complication
CPT/HCPCS: 36415; 70450; 71045; 80048; 80053; 81001; 82140; 82803; 82962; 83735; 83880; 84100; 84443; 84484; 85025; 87086; 93005; 93306; 97110; 97162; 97165; 97530; 99291; J0696

== ENCOUNTER 2023-04-09 16:02 | Observation (INO) | payer MEDICARE, BC, SELFPAY ==
[2023-04-09] VITALS (8 sets, daily range): BP systolic 128–155; BP diastolic 63–101; PULSE 60–68; RESP 14–18; TEMP 36.4–36.7; O2SAT 97–100; BMI 32.3; BMI 32.1
--- NOTE | 2023-04-09 16:13 | ED_ITS ---
The above medical decision making portion was authored by WON Bojorquez. I was consulted by the YARELIS and we discussed the complexity of the problems being addressed. I approved the treatment and management plan for this patient's care in the emergency department, thus performing a substantive portion of the medical decision making. Signed, Marina Harmon MD Discharge Plan Disposition Chief Complaint: Altered Mental Status Discharge ED Provider: Marina Harmon General Adult HPI General Chief complaint: Altered Mental Status Stated complaint: UTI Time Seen by Provider: 04/09/23 16:13 History of Present Illness HPI narrative: Patient is a 67-year-old female presents to the emergency department for evaluation of confusion. Related Data Home Medications Medication Instructions Recorded Confirmed apixaban 5 mg tablet (Eliquis) 5 mg PO BID 10/18/21 04/06/23 multivitamin 1 tab PO DAILY 10/18/21 04/06/23 biotin 5,000 mcg disintegrating 10,000 mcg PO DAILY 10/25/21 04/06/23 tablet Previous Rx's Medication Instructions Recorded bupropion HCl 300 mg 24 hr tablet, 300 mg PO DAILY #90 tabs 10/25/21 extended release cholecalciferol (vitamin D3) 25 25 mcg PO DAILY #90 caps 10/25/21 mcg (1,000 unit) capsule furosemide 20 mg tablet 20 mg PO DAILY #90 tabs 10/25/21 losartan 50 mg tablet 50 mg PO DAILY HTN #90 tabs 10/25/21 potassium chloride 10 mEq 10 meq PO DAILY #90 caps 10/25/21 capsule,extended release sertraline 100 mg tablet 100 mg PO DAILY Depression #90 tabs 10/25/21 albuterol sulfate 90 mcg/actuation 1 puff inhalation QID PRN 10/26/21 aerosol inhaler (Ventolin HFA) shortness of breath or wheezing #18 grams sotalol 80 mg tablet 80 mg PO BID 90 days #180 tabs 06/07/22 cefuroxime axetil 500 mg tablet 500 mg PO Q12H 5 days #10 tabs 04/07/23 Allergies Allergy/AdvReac Type Severity Reaction Status Date / Time Sulfa (Sulfonamide Allergy Unknown Verified 03/01/22 13:07 Antibiotics) allergy reaction acetaminophen AdvReac Vomiting Verified 04/06/23 07:13 [From Darvocet-N 100] propoxyphene AdvReac Vomiting Verified 04/06/23 07:13 [From Darvocet-N 100] [facility] Disclaimer: The information contained in this section may have been updated after the patient was seen, as this information can be updated by other users. Medical History (Updated 04/05/23 @ 21:41 by Olman Vallecillo APRN) Aortic stenosis Breast cancer Diabetes mellitus Hypertension Paroxysmal atrial fibrillation Surgical History (Updated 04/06/23 @ 12:00 by Adrianna Real APRN) Aortic valve replaced H/O heart valve replacement with bioprosthetic valve H/O mastectomy H/O: hysterectomy Hx of cholecystectomy Family History Mother Coronary artery disease Father Heart attack Sister Hypertension Hyperlipidemia Coronary artery disease Diabetes Social History Smoking Status: Former smoker second hand exposure: No alcohol intake: never counseling given: No current occupational status: unemployed Travel in the last 8 weeks: None household members: none housing: house lives independently: Yes number of children: 0 number of grandchildren: 0 Hx Recent Travel: No ROS Obtained: Yes Systems reviewed as appropriate & no additional complaints except as documented Physical Exam Narrative Physical exam: Patient is a well-nourished well-developed 67-year-old female who is otherwise in no acute distress General General appearance: alert and in no apparent distress (But slightly anxious) Head Head exam: atraumatic and normal inspection Eye Eye exam: Present normal appearance, PERRL and EOMI ENT ENT exam: Present normal exam, normal oropharynx and mucous membranes moist Neck Neck exam: Present normal inspection, full ROM and trachea midline; Absent lymphadenopathy Chest Chest inspection: Present normal inspection and symmetric chest wall rise Respiratory Respiratory exam: Present normal lung sounds bilaterally; Absent accessory muscle use Cardiovascular Cardiovascular exam: Present regular rate, normal rhythm, normal heart sounds, +S1 and +S2 Abdominal Exam Abdominal exam: Present soft and normal bowel sounds; Absent tenderness, guarding or rebound Extremities Exam Extremities exam: Present normal inspection and full ROM Neurological Exam Neurological exam: Present alert, oriented X3 and CN II-XII intact Psychiatric Psychiatric exam: Present normal affect and normal mood Skin Skin exam: Present warm, dry and normal color Lymphatic Lymphatic Findings: no adenopathy Medical Decision Making Medical Records Medical records reviewed: Yes I reviewed the patient's medical records. [place] Inquiry Pt receiving controlled substance: No Vital Signs: 04/09/23 16:02 04/09/23 16:30 04/09/23 17:00 Temperature 97.5 F L Temperature Source Oral Pulse Rate 65 64 Pulse Rate [Right] 62 Respiratory Rate 14 Blood Pressure 136/81 145/84 H Blood Pressure [Right Arm] 133/101 H Blood Pressure Mean Blood Pressure Mean [Right Arm] 111 02 Sat by Pulse Oximetry 97 100 99 Oxygen Delivery Method Room Air Room Air Room Air 04/09/23 18:13 04/09/23 19:00 04/09/23 19:30 Temperature Temperature Source Pulse Rate 68 60 60 Pulse Rate [Right] Respiratory Rate Blood Pressure 128/63 148/81 H 151/91 H Blood Pressure [Right Arm] Blood Pressure Mean 103 111 Blood Pressure Mean [Right Arm] 02 Sat by Pulse Oximetry 100 100 99 Oxygen Delivery Method Room Air Lab Data Lab results reviewed: Yes I reviewed the patient's lab results. Lab Results 04/09/23 16:09: WBC 6.3, RBC 4.07 L, Hgb 13.2, Hct 39.7, MCV 97.7, MCH 32.4 H, MCHC 33.2, RDW 14.4, Plt Count 157, MPV 11.2 H, Neut % (Auto) 65.2, Lymph % (Auto) 22.3, [place] % (Auto) 6.5, Eos % (Auto) 5.4, Baso % (Auto) 0.6, Neut # (Aut o) 4.1, Lymph # (Auto) 1.4, [place] # (Auto) 0.4, Eos # (Auto) 0.3, Baso # (Auto) 0.0, Sodium 141, Potassium 3.8, Chloride 108 H, Carbon Dioxide 31 H, Anion Gap 5.8, BUN 19 H, Creatinine 1.10 H, Estimated Creat Clear 70, Estimated GFR 49 L, Est GFR ( Amer) 60 D, Glucose 89, Calcium 10.4 H, Magnesium 2.2, Total Bilirubin 0.8, AST 30, ALT 18, Alkaline Phosphatase 109, Total Protein 6.8, Albumin 3.6, Globulin 3.2, Albumin/Globulin Ratio 1.1, TSH 1.61 04/09/23 16:51: SARS-CoV-2 (PCR) Not detected, Influenza A Untype (PCR) Not detected, Influenza Type B (PCR) Not detected 04/09/23 17:30: Urine Color Yellow, Urine Appearance Clear, Urine pH 7.0, Ur Specific [place] 1.010, Urine Protein Negative, Urine Glucose (UA) Negative, Urine Ketones Negative, Urine Blood Negative, Urine Nitrate Negative, Urine Bilirubin Negative, Urine Urobilinogen 0.2, Ur Leukocyte Esterase Negative, Urine RBC Occasional, Urine WBC None, Ur Squamous Epith Cells Occasional, Urine Bacteria None 04/09/23 16:09 04/09/23 16:09 Orders (Tests/Meds): ORDERS Category Date Time Status CBC w/Auto Diff [Complete Blood Count Auto Diff] Stat Lab 04/09/23 16:09 Completed CMP [Comprehensive Metabolic Panel] Stat Lab 04/09/23 16:09 Completed Magnesium Stat Lab 04/09/23 16:09 Completed Rapid PCR Covid and Flu A/B Stat Lab 04/09/23 16:51 Completed TSH [Thyroid Stimulating Hormone] Stat Lab 04/09/23 16:09 Completed UA [Urinalysis and Microscopic] Stat Lab 04/09/23 17:30 Completed Medical Decision Narrative: In summary patient is a 67-year-old female presents emergency department initially for evaluation of confusion. Patient is hemodynamically stable and afebrile upon arrival. Patient gives a 2-week history of worsening confusion and making bad decisions . Patient was recently admitted to our facility with a diagnosis of urinary tract infection acute encephalopathy and workup of an elevated NT proBNP. Differential diagnosis includes stroke, failure to thrive, cognitive decline, toxic metabolic encephalopathy. Initial workup will be conducted with hematologic labs CT scan twelve-lead EKG. Initial workup r eviewed by me that showed no acute changes in CT scan of the head, hematologic labs were nonactionable.. Upon repeat evaluation patient still reports confusion although it is nonspecific. Patient does trail off thoughts in the middle of sentences.. Given this patient management discussed with hospital medicine and decision to admit jointly was made for further evaluation and care. Critical Care Critical Care Time Critical Care Time: No
--- NOTE | 2023-04-09 16:27 | PC.NURSE ---
Mak UPTON, at BS for pt eval
[2023-04-09 17:01] LABS: Coronavirus 19, PCR Not Detected (NotDetected); Influenza A, PCR Not Detected (NotDetected); Influenza B, PCR Not Detected (NotDetected)
[2023-04-09 17:03] LABS: Basophils % 0.6 % (0.1-2.0); Eosinophils # 0.3 K/mm3 (0.0-0.4); Eosinophils % 5.4 % (0.1-12.0); Hematocrit 39.7 % (37.0-47.0); Hemoglobin 13.2 g/dL (12.2-16.2); Lymphocytes # 1.4 K/mm3 (0.7-4.5); Lymphocytes % 22.3 % (10-50); Mean Corpuscular HGB Conc 33.2 g/dL (31.8-35.4); Mean Corpuscular Hemoglobin 32.4 pg (27.0-31.2); Mean Corpuscular Volume 97.7 fl (81-99); Mean Platelet Volume 11.2 fl (7.4-10.4); Monocytes # 0.4 K/mm3 (0.1-1.0); Monocytes % 6.5 % (1.7-9.3); Neutrophils # 4.1 K/mm3 (1.8-7.8); Neutrophils % 65.2 % (37.0-80.0); Platelet Count 157 K/mm3 (142-424); Red Blood Count 4.07 M/mm3 (4.20-5.40); Red Cell Distribution Width 14.4 % (11.5-17.5); White Blood Count 6.3 K/mm3 (4.8-10.8)
[2023-04-09 17:10] LABS: Alanine Aminotransferase 18 U/L (12-78); Albumin Level 3.6 g/dl (3.5-5.0); Albumin/Globulin Ratio 1.1 (1.1-1.8); Alkaline Phosphatase 109 U/L (38-126); Anion Gap 5.8 mEq/L (5-15); Aspartate Amino Transferase 30 U/L (14-36); Bilirubin,Total 0.8 mg/dl (0.2-1.3); Blood Urea Nitrogen 19 mg/dl (7-17); Calcium 10.4 mg/dl (8.4-10.2); Carbon Dioxide 31 mmol/L (22.0-30.0); Chloride 108 mmol/L (98-107); Creatinine Clearance Estimated 70 mL/min (50-200); Estimated Glomerular Filt Rate 49 ml/min (>60); GFR (African American) 60 ML/MIN (>60); Globulin 3.2 g/dL (1.3-3.2); Glucose 89 mg/dl (74-100); Magnesium 2.2 mg/dl (1.6-2.3); Potassium 3.8 mmoL/L (3.5-5.1); Sodium 141 mmol/L (136-145); Total Protein,Serum 6.8 g/dl (6.3-8.2)
[2023-04-09 17:35] LABS: Microscopic, Urine URINE MICROSCOPIC (MICROSCOPIC)
[2023-04-09 17:41] LABS: Thyroid Stimulating Hormone 1.61 uIU/mL (0.465-4.68)
[2023-04-09 17:57] LABS: Appearance,Urine CLEAR (Clear); Bilirubin,Urine Negative (Negative); Blood, Urine Negative (Negative); Color,Urine YELLOW (Yellow); Glucose,Urine (UA) Negative (Negative); Ketones,Urine Negative (Negative); Leukocyte Esterase,Urine Negative (Negative); Nitrate,Urine Negative (Negative); Protein,Urine Negative (Negative); Urobilinogen,Urine 0.2 EU/dl (0.2)
--- NOTE | 2023-04-09 18:02 | PC.NURSE ---
Called sister per patient request to update her that patient was at [facility].
[2023-04-09 18:19] LABS: RBC,Urine Occasional #/hpf (0-3); Squamous Epithelial Cell,Urine Occasional #/hpf (0-5)
--- NOTE | 2023-04-09 18:22 | PC.NURSE ---
Rounded on pt. No needs voiced and call light within reach.
--- NOTE | 2023-04-09 19:56 | PC.NURSE ---
notified subwarehouse supervisor of admission
--- NOTE | 2023-04-09 20:02 | CT_ITS ---
PROCEDURE INFORMATION: Exam: CT Head Without Contrast Exam date and time: 04/09/2023 8:08 PM Age: 67 years old Clinical indication: Other: Confusion; Additional info: Acute confusion. TECHNIQUE: Imaging protocol: Computed tomography of the head without contrast. Radiation optimization: All CT scans at this facility use at least one of these dose optimization techniques: automated exposure control; mA and/or kV adjustment per patient size (includes targeted exams where dose is matched to clinical indication); or iterative reconstruction. COMPARISON: CT HEAD/BRAIN WO CON 04/05/2023 2:42 PM FINDINGS: Brain: Moderate generalized cerebral/cerebellar atrophy. Moderate bilateral white matter hypodensities which are nonspecific but most commonly associated with chronic microvascular ischemia in this age group. The IACs are grossly normal. No extra-axial fluid collections. No evidence of acute intracranial hemorrhage. No CT evidence of large territory acute or subacute intracranial ischemia/infarct. Chronic encephalomalacia in the high right frontal lobe consistent with small chronic cortical/subcortical infarct is unchanged. Variant prominent perivascular space in the inferior right basal ganglia distribution is unchanged. ML there are few small rounded dural-based calcifications in the right frontal high paramedian and left parietal distributions measuring up to 8.5 mm in size which could represent incidental chronic dural calcifications or possibly small chronic densely calcified meningiomas, unchanged, with no associated mass effect. No midline shift or herniation. Cerebral ventricles: Mild compensatory ventriculomegaly secondary to central atrophy. Pituitary gland and sella: The sella is grossly normal. Paranasal sinuses: Mucosal thickening in the left maxillary sinus suggesting mild chronic sinus inflammatory disease. No fluid levels. The other paranasal sinuses are clear. Mastoid air cells: Visualized mastoid air cells are clear. Orbital cavities: No acute intraorbital findings. Bones/joints: The calvarium and visualized facial bones are intact. Soft tissues: The scalp and visualized soft tissues demonstrate no acute abnormality. Vasculature: Moderate calcific atherosclerosis. No asymmetric vascular hyperdensities suggestive of thrombosis are identified. IMPRESSION: 1. No acute intracranial process. No intracranial hemorrhage or mass effect. No significant change. 2. Atrophy and microvascular changes consistent with age. 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 3. Moderate calcific atherosclerosis. 4. Changes of chronic left maxillary sinusitis.
--- NOTE | 2023-04-09 20:36 | PC.NURSE ---
Report called to LING Lindquist
--- NOTE | 2023-04-09 20:53 | PC.NURSE ---
Patient arrived to floor via wheelchair from ED at 20:49.
--- NOTE | 2023-04-09 22:11 | XR_ITS ---
PROCEDURE INFORMATION: Exam: XR Right Ankle Exam date and time: 04/09/2023 10:37 PM Age: 67 years old Clinical indication: Swelling, leg or foot; Additional info: Ankle swelling TECHNIQUE: Imaging protocol: Radiologic exam of the right ankle. Views: 1 or 2 views. COMPARISON: No relevant prior studies available. FINDINGS: Bones/joints: Osteopenia. No fracture or dislocation. No joint effusion. Normal alignment. Soft tissues: Nonspecific soft tissue swelling around the ankle and distal right leg. No soft tissue air. No foreign body. IMPRESSION: 1. No acute osseous abnormalities. 2. Osteopenia. 3. Nonspecific soft tissue swelling.
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
[2023-04-09 23:15] LABS: NT Pro Brain Natriuretic Pep. 3710 pg/mL (0-125)
[2023-04-09] MEDS: CEFUROXIME AXETIL 500 MG 500 EACH PO (23:19)
[2023-04-10 04:00] VITALS: BP 135/76; PULSE 60; RESP 18; TEMP 36.5; O2SAT 97; BMI 32.5
--- NOTE | 2023-04-10 05:03 | PC.NURSE ---
Since arriving to the floor the patient has been able to rest. She had gotten up to the toilet. [place] was satisfactory, the patient was not unsteady on her feet. Patient answers all my questions appropriate but will also state she is confused. Patient is on RA. no complaints through the night.
--- NOTE | 2023-04-10 07:37 | SW/DCPLANNER ---
Addendum entered by [facility] 04/10/23 13:35: I spoke w/ patient's ninatalie Lewis [phone]: she is aware of contacting [facility] [phone] regarding [facility] services and niece will transport patient home today. Addendum entered by [facility] 04/10/23 11:39: Samreen w/ [facility] in [place] will be contacting this patient regarding services to offer. Addendum entered by [facility] 04/10/23 10:17: PT/OT evaluated patient and stated that she is independent to return home. Myself and Dr Hirsch spoke w/ patient this AM: she stated that she does not need placement physically but could use mental assistance due to forgetting things. Patient is agreeable to return home w/ home health ([facility]), I will speak w/ [facility] to see if she is a candidate for any services, follow up w/ [facility] and Dr Alanis in [place]. I will also call and speak w/ patient's sister regarding this discharge plan. I have notified [facility] that patient does not need placement at this time. Original Note: I spoke w/ patient and her sister yesterday from home regarding an interest in placement. I did explain to patient and her sister that patient would require private pay placement or BEV pending. Patient and sister were agreeable for information to be faxed to [facility], [facility] and [facility]. I will follow up w/ patient, facilities, MD and family today.
--- NOTE | 2023-04-10 07:38 | HMH.PHAINT1 ---
Pharmacy Intervention Comments: Confirmed home medication list using discharge summary from previous hospital stay (04/07/2023). No changes noted.
[2023-04-10 07:51] VITALS: BP 136/71; PULSE 62; RESP 18; TEMP 36.6; O2SAT 100
[2023-04-10 08:00] VITALS: O2SAT 98
[2023-04-10] MEDS: SERTRALINE 100MG TABLET 100 MG PO (09:00)
[2023-04-10] MEDS: buPROPion HCl SR 150MG TAB 150 MG PO (09:00)
[2023-04-10] MEDS: CHOLECALCIFEROL 1,000 UNITS (25MCG) TABLET 25 MCG PO (09:00)
[2023-04-10] MEDS: IRBESARTAN 75MG TABLET 75 MG PO (09:00)
[2023-04-10] MEDS: POTASSIUM CHLORIDE 10MEQ CAPSULE.ER 10 MEQ PO (09:00)
[2023-04-10] MEDS: APIXABAN 5MG TABLET 5 MG PO (09:00)
[2023-04-10] MEDS: SOTALOL 80MG TABLET 80 MG PO (09:01)
[2023-04-10] MEDS: cefUROXime AXETIL 250MG TABLET 500 MG PO (09:02)
[2023-04-10] MEDS: FUROSEMIDE 40MG/4ML VIAL 40 MG IV (09:03)
--- NOTE | 2023-04-10 09:36 | HMH.PTEV ---
Physical Therapy Evaluation Rehab PT IP Evaluation Start: 04/10/23 07:07 Freq: ONCE Status: Active Protocol: Document 04/10/23 09:32 ALMA (Rec: 04/10/23 09:36 [facility] [id number]) Subjective/History History History 67 yowf adm to [facility] with AMS. She has PMHX of diabetes, hypertension, history of aortic valve replacement on Eliquis. She reports she lives alone, 5-6 steps to enter the home and she is generally independent with all mobility at baseline. SHe reports she does not use an AD for mobility at baseline. Subjective Subjective I'm just confused and I don't think I can take careof myself. Pt has no c/o pain or discomfort at this time and agrees to mobility assessment. New diagnosis of cancer in past 12 No months? Rehab PT IP Eval Objective Appearance Patient Behavior Appropriate Patient Orientation Person,Place,Time,Month,Year, Situation Difficulty following instructions none Speech Pattern Clear Ambulation Patient Able to Ambulate Yes Ambulation Observation IP General Gait Pattern Observation No Deviations/Normal Ambulation Distance (feet) 50 Ambulation Assistive Device None Ambulation Ability Supervision/Stand by Balance Ability to Arise Able, uses arms to help Sitting Balance Steady, safe Standing Balance Steady, wide stance Dynamic Sitting Balance Ability Good Dynamic Standing Balance Ability Good Transfers Bed Transfer Ability Independent Chair Transfer Ability Independent Sit to Stand Bed Transfer Ability Independent Sit to Stand Chair Transfer Ability Independent ROM All Extremities PT ROM Status WFL MMT All Extremities PT MMT WFL Rehab PT IP prob,goals,plan Problems Date of Evaluation: 04/10/23 Discharge Plan PT Discharge Plan Pt currently has no inpatient therapy needs and appears to be at baseline for all mobility. She appears appropriate to return home once medically stable currently. Eval Complexity Eval Charge Codes 16951 - High Complexity PHYSICIAN CERTIFICATION: I certify the specified therapy services for Venora F Leon are required, authorized, and reviewed every 30 days.
--- NOTE | 2023-04-10 09:51 | HMH.OTEV ---
OT Inpatient Evaluation Rehab OT IP Evaluation Start: 04/10/23 07:07 Freq: ONCE Status: Active Protocol: Document 04/10/23 09:[facility] (Rec: 04/10/23 09:51 [facility] [id number]) Rehab OT IP Assessment Subjective History Pt oriented x 3 on arrival. Pt agreeable to engage in therapy evaluation. 67 yowf adm to [facility] with AMS. She has PMHX of diabetes, hypertension , history of aortic valve replacement on Eliquis. She reports she lives alone, 5-6 steps to enter the home and she is generally independent with all mobility at baseline. SHe reports she does not use an AD for mobility at baseline . She also claims to be independent with all ADLs and IADLs prior to being in the hospital. Subjective I'm just confused and I don't think I can take care of myself. Pt does not appear to be confused to therapist. She is able to sequences several ADL tasks independently. She provided previous level of functioning and is oriented. Objective Patient Orientation Person,Place,Birthday Right Upper Extremity Gross ROM WFL Left Upper Extremity Gross ROM WFL Bed Mobility bed mobility-scooting,bed mobility - supine/sit Assist Level Supervision/Stand by Transfer Training Sit/Stand Transfer Assist Level Supervision/Stand by Chair Transfer Ability Supervision/Stand by Chair Transfer Technique Sit to/from Ambulatory Chair Transfer Assistive Devices None Lower Body Dressing Ability Standby Assistance Performing Toilet Hygiene Ability Standby Assistance Overall Commode/Toilet Transfer Ability Standby Assistance Commode/Toilet Transfer Technique Sit to/from Ambulatory Commode/Toilet Transfer Assistive Grab Bars Devices Rehab OT IP prob,goals,plan Problems Date of Evaluation: 04/10/23 Rehab Potential Rehab Potential Innapropriate for Skilled Therapy Discharge Plan OT Discharge Plan Pt appears to be at her baseline with all ADLs and functional transfers. Pt can return home once she is medically stable per physician . Eval Complexity Eval Charge Codes 99210 - Moderate Complexity PHYSICIAN CERTIFICATION: I certify the specified therapy services for Venora F [place] are required, authorized, and reviewed every 30 days.
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
--- NOTE | 2023-04-10 12:21 | PC.NURSE ---
called sister twice with no answer.
--- NOTE | 2023-04-11 11:10 | CARE MANAGER ---
Called and spoke with patient regarding recent discharge. Patient stated that she is doing well. Stated that she is expecting HH to arrive soon, and is aware of scheduled f/u appt. No concerns voiced at time of call.
== END 2023-04-10 14:47 | disposition home health service (06) ==
LOC: ER 16:09 → 2ND 20:14
PROVIDERS: Nurse Practitioner Critical Care Medicine; Physician Assistant; Admitting Provider Internal Medicine; Emergency Provider Emergency Medicine; Visit Provider Internal Medicine
DX: R41.82 Altered mental status, unspecified (principal); E11.69 Type 2 diabetes mellitus with other specified complication; I48.0 Paroxysmal atrial fibrillation; I50.9 Heart failure, unspecified; Z95.2 Presence of prosthetic heart valve; Z79.01 Long term (current) use of anticoagulants; I11.0 Hypertensive heart disease with heart failure; Z85.3 Personal history of malignant neoplasm of breast
CPT/HCPCS: 36415; 70450; 73600; 80053; 81001; 83735; 83880; 84443; 85025; 87636; 97163; 97166; 99285; G0378

== ENCOUNTER 2024-10-29 08:05 | Outpatient (CLI) | payer MEDICARE, BC, SELFPAY ==
[2024-10-29 08:16] LABS: Hematocrit 36.8 % (37.0-47.0); Hemoglobin 12.5 g/dL (12.2-16.2); Immature Granulocytes % 0.4 %; Mean Corpuscular HGB Conc 34.0 g/dL (31.8-35.4); Mean Corpuscular Hemoglobin 33.6 pg (27.0-31.2); Mean Corpuscular Volume 98.9 fl (81-99); Nucleated Red Blood Cells % 0 %; Platelet Count 100 K/mm3 (142-424); Red Blood Count 3.72 M/mm3 (4.20-5.40); Red Cell Distribution Width-SD 47.1 fL; White Blood Count 5.3 K/mm3 (4.8-10.8)
[2024-10-29 08:53] LABS: Alanine Aminotransferase 22 U/L (12-78); Albumin Level 3.3 g/dl (3.5-5.0); Albumin/Globulin Ratio 1.2 (1.1-1.8); Alkaline Phosphatase 99 U/L (38-126); Anion Gap 9.0 mEq/L (5-15); Aspartate Amino Transferase 27 U/L (14-36); Bilirubin,Total 1.0 mg/dl (0.2-1.3); Blood Urea Nitrogen 22 mg/dl (7-17); Calcium 11.3 mg/dl (8.4-10.2); Carbon Dioxide 25 mmol/L (22.0-30.0); Chloride 109 mmol/L (98-107); Cholesterol 124 mg/dl (140-200); Creatinine,Serum 1.10 mg/dl (0.52-1.04); Estimated Glomerular Filt Rate 49 ml/min (>60); GFR (African American) 59 ML/MIN (>60); Globulin 2.7 g/dL (1.3-3.2); Glucose 96 mg/dl (74-100); HDL Cholesterol 54 mg/dl (40-60); Potassium 4.0 mmoL/L (3.5-5.1); Sodium 139 mmol/L (136-145); Total Protein,Serum 6.0 g/dl (6.3-8.2); Triglycerides 61 mg/dl (30-150)
[2024-10-29 09:56] LABS: Hemoglobin A1C 5.2 % (4.0-6.0)
== END 2024-10-29 23:59 | disposition home or self-care (01) ==
PROVIDERS: PCP Family Medicine; Visit Provider Family Medicine
DX: E11.9 Type 2 diabetes mellitus without complications (principal)
CPT/HCPCS: 36415; 80053; 80061; 83036; 85025

== ENCOUNTER 2025-01-05 08:15 | Outpatient (CLI) | payer BC, SELFPAY ==
[2025-01-05 08:47] LABS: Anion Gap 8.2 mEq/L (5-15); Blood Urea Nitrogen 29 mg/dl (7-17); Calcium 11.5 mg/dl (8.4-10.2); Carbon Dioxide 25 mmol/L (22.0-30.0); Chloride 109 mmol/L (98-107); Creatinine,Serum 1.30 mg/dl (0.52-1.04); Estimated Glomerular Filt Rate 40 ml/min (>60); GFR (African American) 49 ML/MIN (>60); Glucose 113 mg/dl (74-100); Potassium 4.2 mmoL/L (3.5-5.1); Sodium 138 mmol/L (136-145)
== END 2025-01-05 23:59 | disposition home or self-care (01) ==
LOC: LAB.DROPOF 08:16
PROVIDERS: PCP Family Medicine; Visit Provider Family Medicine
DX: I42.0 Dilated cardiomyopathy (principal); I10 Essential (primary) hypertension
CPT/HCPCS: 36415; 80048

== ENCOUNTER 2025-01-16 17:38 | Observation (INO) | payer MEDICARE, BC, MEDICAID, SELFPAY ==
--- OUTSIDE RECORDS SUMMARY | 2024-11-19 09:30 | XMS_ITS | Encounter Summary ---
[facility] Address [address] [place] [address] Care Team Providers Care Special Procedure Tech Name Role Phone Fred Robbins MD Primary Care Provider [phone] Reason for Visit * Diagnostic Imaging (Routine) - Closed Specialty Diagnoses / Procedures Referred By Contac t Referred To Contact Diagnoses Hypertrophic obstructive cardiomyopathy (HOCM) Procedures Adult Transthoracic Echo Complete W/ Cont if Necessary Per Protocol CA ECHO TTHRC R-T 2D W/WOM-MODE COMPL SPEC&COLR D CA ECHO TRANSTHORC R-T 2D W/WO M-MODE REC F-UP/LMTD Kajal Hendrix MD [address] [place] [address] Phone: tel: fax: [facility] [address] [place] [address] Phone: tel: fax: Referral ID Status Reason Start Date Expiration Date Visits Re quested Visits Authorized [id number] Closed 11/11/2024 02/10/2026 1 1 Encounter Details Date Type Department Care Team (Latest Contact Info) Description 11/19/2024 10:30 AM EDT Ancillary Procedure 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 [address] [place] [place] [id number] 01/29/2025 2:00 PM EST Office Visit [facility] [address] [place] [phone] Shannan Adair APRN [address] [place] [address] documented as of this encounter Procedures Procedure Name Priority Date/Time Associated Diagnosis Comments ECHO COMPLETE W/ DOPPLER AND COLOR FLOW Routine 11/19/2024 11:00 AM EDT Hypertrophic obstructive cardiomyopathy (HOCM) documented in this encounter Results * ECHO COMPLETE W/ DOPPLER AND COLOR FLOW (11/19/2024 11:00 AM EDT) EF(MOD-bp) 65.6 % LVIDd 4.5 cm LVIDs 2.9 cm IVSd 1.83 cm LVPWd 1.79 cm FS 34.3 % IVS/LVPW 1.02 cm ESV(cubed) 25.2 ml LV Sys Vol (BSA corrected) 16.2 cm2 EDV(cubed) 88.7 ml LV Benson Vol (BSA corrected) 46.8 cm2 LV mass(C)d 365.7 grams LVOT area 3.5 cm2 LVOT diam 2.10 cm EDV(MOD-sp2) 174.0 ml EDV(MOD-sp4) 104.0 ml ESV(MOD-sp2) 64.5 ml ESV(MOD-sp4) 36.0 ml SV(MOD-sp2) 109.5 ml SV(MOD-sp4) 68.0 ml SVi(MOD-SP2) 49.2 ml/m2 SVi(MOD-SP4) 30.6 ml/m2 SVi (LVOT) 62.9 ml/m2 EF(MOD-sp2) 62.9 % EF(MOD-sp4) 65.4 % MV E max krystle 192.0 cm/sec LA ESV Index (BP) 75.2 ml/m2 TR max krystle 336.0 cm/sec SV(LVOT) 139.9 ml RVIDd 3.3 cm RV Base 3.6 cm RV Mid 3.6 cm RV Length 6.2 cm TAPSE (>1.6) 1.25 cm RV S' 8.8 cm/sec LA dimension (2D) 5.8 cm LV V1 max 199.0 cm/sec LV V1 max PG 15.8 mmHg LV V1 mean PG 9.0 mmHg LV V1 VTI 40.4 cm Ao pk krystle 239.5 cm/sec Ao max PG 23.0 mmHg Ao mean PG 10.5 mmHg Ao V2 VTI 42.6 cm ADELITA(I,D) 3.3 cm2 Dimensionless Index 0.95 (DI) MV max PG 30.7 mmHg MV mean PG 10.0 mmHg MV V2 VTI 69.8 cm MV P1/2t 135.1 msec MVA(P1/2t) 1.63 cm2 MVA(VTI) 2.00 cm2 MV dec slope 412.0 cm/sec2 TR max PG 45.4 mmHg RVSP(TR) 48.4 mmHg RAP systole 3.0 mmHg PA V2 max 115.0 cm/sec PI end-d krystle 148.0 cm/sec Ao root diam 3.5 cm Sinus 2.9 cm AV LVOT peak gradient 32 mmHg LVOT peak grad valsalva 48 mmHg RF(MV,LVOT) 32 RF(MV,LVOT)(1diam) 48 cm Anatomical Region Laterality Modality Ultrasound Narrative 11/24/2024 4:08 PM EDT Left ventricular systolic function is normal. Calculated left ventricular EF = 65.6% Left ventricular ejection fraction appears to be 66 - 70%. Left ventricular diastolic function was not assessed. The LVOT pressure gradient at rest is 32 mmHg. The LVOT pressure gradient with provocation is 48 mmHg. Moderate mitral valve stenosis is present. The mitral valve peak gradient is 31 mmHg. The mitral valve mean gradient is 10 mmHg. Moderate mitral valve regurgitation is present. Calculated right ventricular systolic pressure from tricuspid regurgitation is 48 mmHg. Moderate pulmonary hypertension is present. Left Ventricle Left ventricular systolic function is normal. Calculated left ventricular EF = 65.6% Left ventricular ejection fraction appears to be 66 - 70%. Normal left ventricular cavity size noted. Left ventricular wall thickness is consistent with severe concentric hypertrophy. All left ventricular wall segments contract normally. The findings are consistent with obstructive, hypertrophic cardiomyopathy. Obstruction due to left ventricular outflow. Left ventricular diastolic function was not assessed. Right Ventricle Normal right ventricular cavity size and septal motion noted. Right ventricular wall thickness is consistent with mild hypertrophy. Moderately reduced right ventricular systolic function noted. Left Atrium Left atrial volume is severely increased. Right Atrium The right atrial cavity is dilated. Right atrial volume is 52 ml. Mitral Valve Mild mitral annular calcification is present. There is moderate calcification of the mitral valve anterior and posterior leaflet(s). The LVOT pressure gradient at rest is 32 mmHg. The LVOT pressure gradient with provocation is 48 mmHg. Moderate mitral valve regurgitation is present. Moderate mitral valve stenosis is present. The mitral valve peak gradient is 30.7 mmHg. The mitral valve mean gradient is 10.0 mmHg. Tricuspid Valve The tricuspid valve is structurally normal with no significant stenosis present. Mild tricuspid valve regurgitation is present. Estimated right ventricular systolic pressure from tricuspid regurgitation is moderately elevated (45-55 mmHg). Calculated right ventricular systolic pressure from tricuspid regurgitation is 48.4 mmHg. Moderate pulmonary hypertension is present. Aortic Valve No significant aortic valve regurgitation is present. There is a bioprosthetic aortic valve of unknown size present. The prosthetic aortic valve is grossly normal. Pulmonic Valve The pulmonic valve is structurally normal with no significant stenosis present. There is mild pulmonic valve regurgitation present. Pericardium The pericardium is normal. There is no evidence of pericardial effusion. . Greater Vessels No dilation of the aortic root is present. No dilation of the sinuses of Valsalva is present. No dilation of the proximal aorta is present. The aortic arch not assessed. The descending aorta not assessed. The inferior vena cava is normally sized. Normal IVC inspiratory collapse of greater than 50% noted. Study Quality The study is technically difficult for diagnosis. The quality of the study is limited with poor acoustic windows. Atrial fibrillation was the predominant rhythm observed during the procedure. Wall Scoring Score Index: 1.00 The left ventricular wall motion is normal. us Kajal Hendrix MD CV ECHO ORDERABLES Final Res ult documented in this encounter Visit Diagnoses Diagnosis Hypertrophic obstructive cardiomyopathy (HOCM) documented in this encounter Care Teams Special Procedure Tech Relationship Specialty Start Date End Date Fred Robbins MD [address] [place] [address] PCP - General Family Medicine 11/10/24 documented as of this encounter
--- OUTSIDE RECORDS SUMMARY | 2025-01-01 14:30 | XMS_ITS | Encounter Summary ---
Author Organization [facility] Address [address] [place] [address] Care Team Providers Care Dynamometer Tester Name Role Phone Fred Robbins MD Primary Care Provider +1- [phone] Reason for Visit * Diagnostic Imaging (Routine) - Closed Specialty Diagnoses / Procedures Referred By Contac t Referred To Contact Diagnoses Hypertrophic obstructive cardiomyopathy (HOCM) Procedures Adult Transthoracic Echo Complete W/ Cont if Necessary Per Protocol [place] ECHO TTHRC R-T 2D W/WOM-MODE COMPL SPEC&COLR D VT ECHO TRANSTHORC R-T 2D W/WO M-MODE REC F-UP/LMTD Kajal Hendrix MD [address] [place] [address] Phone: tel: fax: [facility] [address] [place] [address] Phone: tel: fax: Referral ID Status Reason Start Date Expiration Date Visits Re quested Visits Authorized [id number] Closed 01/01/2025 04/02/2026 1 1 Encounter Details Date Type Department Care Team (Latest Contact Info) Description 01/01/2025 2:30 PM EST Ancillary Procedure [facility] CL[facility]IC [place] [address] Hypertrophic obstructive cardiomyopathy (HOCM) [...] 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
--- OUTSIDE RECORDS SUMMARY | 2025-01-01 15:15 | XMS_ITS | Encounter Summary ---
Author Organization [facility] Address [address] [id number] Care Team Providers Care Double Back Operator Name Role Phone Fred Robbins MD Primary Care Provider [phone]- [phone] Reason for Visit * Reason Comments Follow-up Echo results Encounter Details Date Type Department Care Team (Latest Contact Info) Description 01/01/2025 3:15 PM EST Office Visit [facility] [address] [place] [address] Shannan Adair, FOOD SERVER [address] [place] [address] Hypertrophic obstructive cardiomyopathy (HOCM) (Primary Dx); Nonrheumatic [...] 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 Report not done by the time patient was seen. - Discussed with patient and family today that Dr. Hendrix's nurse Christina will have to put gradient numbers into [employer] system and will be in contact with [...] starting patient on Camzyos. [facility] and had to get approval to see [...] with moderate MR, MS RSVP 55 Electrical: [id number] SCORE /RISK: 4 /6.7% Pericardium: Normal VASCULAR [...] WITH JAME; Surgeon: Jose Beltran MD; Location[facility]; Service: CARDIAC CATHETERIZATION N/A 03/31/2016 Procedure: [...] options were offered after discussion;: [facility] Physical Exam Constitutional: Appearance: Normal appearance. She [...] will have to put gradient numbers into [employer] system and will be in contact with [...] file. Shannan Adair APRN Cardiology and Sleep [facility] 01/01/2025 Please note that this explicitly excludes time spent on other separate billable services such as performing procedures or test interpretation, when applicable. documented in this encounter Plan of Treatment Upcoming Encounters Date Type Department Care Team (Late st Contact Info) Description 01/29/2025 12:30 PM EST Ancillary Procedure [facility] [place] [address] 01/29/2025 2:00 PM EST Office Visit [facility] [address] [place] [address] [place] [address] Shannan Adair APRN [address] [place] [address] documented as of this encounter Visit Diagnoses Diagnosis Hypertrophic obstructive cardiomyopathy (HOCM)- Primary Nonrheumatic aortic valve stenosis Atrial fibrillation, chronic Pacemaker Cardiac pacemaker in situ Primary hypertension Unspecified essential hypertension documented in this encounter Care Teams Double Back Operator Relationship Specialty Start Date End Date Fred Robbins MD [facility] [address] [address] PCP - General Family Medicine 11/10/24 documented as of this encounter
--- NOTE | 2025-01-16 17:41 | HMH.EDGENADL ---
Discharge Plan Disposition Patient Disposition: Admitted Condition: Good Clinical Impressions Clinical Impression: CHF (congestive heart failure), Acute UTI Discharge ED Provider: Samreen Rosales Adult HPI General Chief complaint: Shortness of Breath/Dyspnea Stated complaint: SOA Time Seen by Provider: 01/16/25 17:39 History of Present Illness HPI narrative: Patient is a 69-year-old female who presented here to the emergency department with shortness of breath over the last couple days, leg swelling as well as urinary symptoms. Patient denies any chest pain. Patient denies any fevers cough or other upper respiratory symptoms. Patient states that she is not on any medications to help with the swelling in her legs. Patient states that she is having some difficulties getting around because of the swelling. Daughter states that she looks more unwell than usual. Patient has not had any recent sick symptoms. Patient denies any abdominal pain nausea vomiting or diarrhea. Related Data Home Medications ?Medication ?Instructions ?Recorded ?Confirmed multivitamin 1 tab PO DAILY 10/18/21 01/17/25 acetaminophen 500 mg tablet 1,000 mg PO Q6H PRN Pain 11/04/24 01/17/25 dextromethorphan-guaifenesin 10 20 ml PO .q6 PRN 11/04/24 11/25/24 mg-100 mg/5 mL oral syrup furosemide 20 mg tablet (Lasix) 20 mg PO DAILY 11/04/24 01/17/25 melatonin 3 mg capsule 3 mg PO HS 11/04/24 01/17/25 metoprolol succinate 50 mg 50 mg PO DAILY 11/04/24 01/17/25 tablet,extended release 24 hr fluconazole 150 mg tablet 150 mg PO WEEKLY 12/30/24 01/17/25 potassium chloride 10 mEq 10 meq PO DAILY 12/30/24 01/17/25 capsule,extended release mavacamten 5 mg capsule (Camzyos) 5 mg PO BID 01/16/25 01/17/25 Previous Rx's ?Medication ?Instructions ?Recorded apixaban 5 mg tablet (Eliquis) 5 mg PO BID 90 days #180 tabs 12/13/23 bupropion HCl 300 mg 24 hr tablet, 300 mg PO DAILY 90 days #90 tabs 12/13/23 extended release fluticasone 250 mcg-salmeterol 50 1 inh inhalation BID #60 ea 12/09/24 mcg/dose blistr powdr for inhalation albuterol sulfate 90 mcg/actuation 2 puff inhalation Q4-6H PRN 11/04/24 aerosol inhaler (Ventolin HFA) shortness of breath or wheezing #8.5 grams Allergies Allergy/AdvReac Type Severity Reaction Status Date / Time Sulfa (Sulfonamide Allergy Unknown Verified 11/04/24 15:58 Antibiotics) allergy reaction [facility] Disclaimer: The information contained in this section may have been updated after the patient was seen, as this information can be updated by other users. Medical History Intertrigo History of cardiac pacemaker Diabetes mellitus History of prior cigarette smoking Personal history of pneumonia (recurrent) Atherosclerotic heart disease of [place] coronary artery without angina pectoris Anxiety disorder, unspecified Acute ischemic heart disease, unspecified Presence of prosthetic heart valve Alertness, decreased Type 2 diabetes mellitus with hyperosmolarity with coma Essential (primary) hypertension Acquired stenosis of aortic valve H/O malignant neoplasm of breast History of falling Dilated cardiomyopathy Depression, unspecified Vitamin B12 deficiency anemia, unspecified Vitamin D deficiency, unspecified Other seasonal allergic rhinitis Advanced COPD Muscle weakness (generalized) Other symbolic dysfunctions Spastic gait Acute UTI Chronic obstructive pulmonary disease, unspecified CHF exacerbation Fall Breast cancer Aortic stenosis Paroxysmal atrial fibrillation Hypertension Surgical History History of lumpectomy of right breast H/O heart valve replacement with bioprosthetic valve Hx of cholecystectomy H/O: hysterectomy Aortic valve replaced Family History Mother Coronary artery disease Father Heart attack Sister Hypertension Hyperlipidemia Coronary artery disease Diabetes Social History Smoking Status: Former smoker years smoked: 43 smoking status stop date: 2012 second hand exposure: No alcohol intake: never counseling given: No current occupational status: unemployed Travel in the last 8 weeks?: None household members: none housing: care home lives independently: Yes marital status: single number of children: 0 number of grandchildren: 0 Hx Recent Travel: No Have you lived/traveled outside [place] in past 30 days?: No Contact w/someone who lives/traveled outside US past 30 days?: No Exposure to someone with infectious disease in past 14 days?: No Do you have a fever (greater than 100.4 F or 38 C)?: No Have you tested positive for COVID-19?: No Exposed to someone with COVID-19 in past 14 days?: No Do you have a sore throat?: No Do you have a cough?: No Do you have any weakness?: No Are you experiencing any nausea/vomitting?: No Do you have any diarrhea?: No Are you experiencing any unusual bleeding?: No Do you have any muscle aches/pain?: No Do you have any abdominal pain?: No Are you experiencing loss of taste or smell?: No Other Medical History Have you received the Flu Vaccine for this season: No Have you received the Pneumonia Vaccine: Yes (09/02/24) ROS Obtained: Yes All systems reviewed & no additional complaints except as documented and Yes Systems reviewed as appropriate & no additional complaints except as documented Physical Exam General General appearance: alert and in no apparent distress Head Head exam: atraumatic, normocephalic and normal inspection Eye Eye exam: Present normal appearance, PERRL and EOMI; Absent scleral icterus ENT ENT exam: Present normal exam and normal external ear exam Neck Neck exam: Present normal inspection and full ROM Chest Chest inspection: Present normal inspection and symmetric chest wall rise Respiratory Respiratory exam: Present normal lung sounds bilaterally; Absent respiratory distress or wheezes Cardiovascular Cardiovascular exam: Present regular rate, normal rhythm and normal heart sounds Abdominal Exam Abdominal exam: Present soft and distention; Absent tenderness, guarding or rebound Extremities Exam Extremities exam: Present normal inspection and full ROM Back Exam Back exam: Present normal inspection and full ROM Neurological Exam Neurological exam: Present alert and oriented X3 Psychiatric Psychiatric exam: Present normal affect and normal mood Skin Skin exam: Present warm, dry and other (3+ pitting edema of the BLE) Medical Decision Making Medical Records Medical records reviewed: Yes I reviewed the patient's medical records. Screening: Per USPSTF and CDC recommendations, given the prevalence of disease in our region, it is our hospital?s policy to screen for HIV and viral Hepatitis for all patients aged 18 and over and those with ongoing risk factors. [place] Inquiry Pt receiving controlled substance: No Vital Signs: 01/16/25 17:45 01/16/25 23:21 Temperature 97.9 F 98.3 F Temperature Source Oral Oral Pulse Rate 66 Pulse Rate [Right Brachial] 62 Respiratory Rate 18 14 Blood Pressure 121/70 Blood Pressure [Right Arm] 116/70 Blood Pressure Mean [Right Arm] 85 Blood Pressure Source [Right Arm] Automatic Cuff Blood Pressure Position [Right Arm] Sitting 02 Sat by Pulse Oximetry 97 Oxygen Delivery Method Room Air Room Air Lab Data Lab results reviewed: Yes I reviewed the patient's lab results. Lab Results 01/16/25 17:43: SARS-CoV-2 (PCR) Not detected, Influenza Type A (PCR) Not detected, Influenza Type B (PCR) Not detected, RSV (PCR) Not detected, Rhinovirus (PCR) Not detected 01/16/25 18:09: WBC 6.6, RBC 4.16 L, Hgb 13.7, Hct 42.9, MCV 103.1 H, MCH 32.9 H, MCHC 31.9, RDW 14.4, Plt Count 129 L, MPV 12.9 H, Neut % (Auto) 74.6, Lymph % (Auto) 11.9, [place] % (Auto) 9.4 H, Eos % (Auto) 3.0, Baso % (Auto) 0.6, Neut # (Auto) 4.9, Lymph # (Auto) 0.8, Dillon # (Auto) 0.6, Eos # (Auto) 0.2, Baso # (Auto) 0.0, Sodium 143, Potassium 4.9, Chloride 107, Carbon Dioxide 26, Anion Gap 14.9, BUN 27 H, Creatinine 1.30 H, Estimated Creat Clear 59, Estimated GFR 40 L, Est GFR ( Amer) 49 L, Glucose 113 H, Calcium 11.3 H, Total Bilirubin 1.2, AST 48 H, ALT 30, Alkaline Phosphatase 84, Troponin I 0.01, NT-Pro-B Natriuret Pep 3860 H, Total Protein 7.5, Albumin 4.1, Globulin 3.4 H, Albumin/Globulin Ratio 1.2 01/16/25 21:45: Urine Color Yellow, Urine Appearance Clear, Urine pH 5.5, Ur Specific [place] 1.010, Urine Protein Negative, Urine Glucose (UA) Negative, Urine Ketones Negative, Urine Blood 2+ A, Urine Nitrate Positive A, Urine Bilirubin Negative, Urine Urobilinogen 0.2, Ur Leukocyte Esterase 2+ A, Urine RBC 3-5, Urine WBC Tntc, Ur Squamous Epith Cells None, Urine Bacteria 1+ 01/16/25 18:09 01/16/25 18:09 Orders (Tests/Meds): ED MEDICATIONS Generic Name Dose Route Start Last Admin Trade Name Freq PRN Reason Stop Dose Admin Acetaminophen 650 mg 01/16/25 23:39 Acetaminophen 325mg Tab PO 02/15/25 23:38 Q4HP PRN Fever or Mild Pain (1-3) Ceftriaxone Sodium 2 gm/ 100 mls @ 200 mls/hr 01/17/25 22:00 Sodium Chloride IV 01/27/25 21:59 Q24H CARLOS A Sodium Chloride 10 ml 01/16/25 21:23 01/16/25 21:24 Sodium Chloride 0.9% 10ml Syr (Rad Only) IV 02/15/25 21:22 10 ml NEEDED PRN Administration Maintain IV Site Discontinued Medications Generic Name Dose Route Start Last Admin Trade Name Freq PRN Reason Stop Dose Admin Furosemide 40 mg 01/16/25 22:16 01/16/25 22:44 Furosemide 40mg/4ml Vial IV 01/16/25 22:17 40 mg ONCE ONE Administration Ceftriaxone Sodium 2 gm/ 100 mls @ 200 mls/hr 01/16/25 22:15 01/16/25 22:42 Sodium Chloride IV 01/16/25 22:44 200 mls/hr ONCE ONE Administration Iopamidol 70 ml 01/16/25 21:23 01/16/25 21:24 Iopamidol-370 (76%);100ml Bottle IV 01/16/25 21:24 70 ml ONCE ONE Administration Sodium Chloride 40 ml 01/16/25 21:23 01/16/25 21:24 0.9 % Sodium Chloride 50 Ml Vial IV 01/16/25 21:24 40 ml ONCE ONE Administration ORDERS Category Date Time Status CT angio chest PE protocol Stat Cat Scan 01/16/25 19:06 Completed CXR --portable [XR chest portable] Stat Exams 01/16/25 17:54 Completed BNP [NT Pro Brain Natriuretic Pep.] Stat Lab 01/16/25 18:09 Completed CBC w/Auto Diff [Complete Blood Count Auto Diff] Stat Lab 01/16/25 18:09 Completed CMP [Comprehensive Metabolic Panel] Stat Lab 01/16/25 18:09 Completed Mini Respiratory Panel Stat Lab 01/16/25 17:43 Completed Trop I [Troponin I] Stat Lab 01/16/25 18:09 Completed Troponin I Q3H Lab 01/16/25 23:50 Completed Troponin I Q3H Lab 01/17/25 06:00 Ordered UA [Urinalysis and Microscopic] Stat Lab 01/16/25 21:45 Completed Urine Culture Stat Micro 01/16/25 21:45 Received Medical Decision Narrative: Is a 69-year-old female with a past medical history of reported heart failure, COPD who presented to the emergency department with shortness of breath. On arrival, patient was hemodynamically stable with unremarkable vital signs. Differential includes but not limited to: CHF exacerbation, COPD exacerbation, pneumonia, urinary tract infection, pulmonary embolism, amongst others. Patient's labs were reviewed and interpreted by myself: CBC showed no leukocytosis, hemoglobin was stable. CMP was unremarkable. BNP was elevated at 3800. Initial troponin was 0.01, second troponin was 0.02. EKG was reviewed and interpreted by myself and showed normal sinus rhythm without acute ST or T wave changes concerning for ischemia UA showed bacteria, too numerous to count white blood cells, 2+ leuk esterase, positive nitrites. Chest x-ray was reviewed and interpreted by myself and showed some mild pulmonary congestion. CT PE was obtained which was reviewed and interpreted by myself and showed no acute pathology no pulmonary embolism. At this time, given patient's swelling in her lower extremities, shortness of breath requiring 2 L nasal cannula as well as her UTI, I felt the patient warranted admission. Patient was given 40 of IV Lasix here in the emergency department patient was ultimately admitted to the hospital for further evaluation and workup. Critical Care Critical Care Time Critical Care Time: No
[2025-01-16 17:45] VITALS: BP 116/70; PULSE 62; RESP 18; TEMP 36.6; O2SAT 97; BMI 32.9
--- NOTE | 2025-01-16 17:46 | ECG_ITS ---
APPROVED REPORT Exam: Resting ECG HR:61 bpm ECG Measurements Heart Rate 61 AXES QRSd 170 QRS 153 QT 468 T -26 QTc 471 Conclusion ELECTRONIC VENTRICULAR PACEMAKER ABNORMAL RHYTHM ECG UNCONFIRMED REPORT Electronically signed by : SAE VALENTINO, 01/17/2025 01:09:14
--- NOTE | 2025-01-16 17:46 | PC.NURSE ---
1 unsuccessful IV attempt by this RN to the [facility]
--- OUTSIDE RECORDS SUMMARY | 2025-01-16 17:50 | XMS_ITS | Clinical Summary ---
Author Organization [facility] Address [address] [place] [address] Care Team Providers Care Medical Device Assembler Name Role Phone Fred Robbins MD Primary Care Provider +1- [phone] Allergies Active Allergy Reactions Criticality Noted Date Comments Other Nausea And Vomiting 01/09/2022 Darvocet Sulfa Antibiotics Rash Low 01/09/2022 Medications buPROPion XL (WELLBUTRIN XL) 300 MG 24 hr tablet Take 1 tablet by mouth Daily. Active albuterol sulfate HFA 108 (90 Base) MCG/ACT inhaler As Needed. 2 Active apixaban (ELIQUIS) 5 MG tablet tablet Take 1 tablet by mouth 2 (Two) Times a Day. 60 tablet 6 3 Active metoprolol succinate XL (TOPROL-XL) 50 MG 24 hr tabletIndications:P rimary hypertension,Paroxy smal atrial fibrillation Take 1 tablet by mouth Daily. 30 tablet 5 Active Mavacamten (Camzyos) 5 MG capsuleIndications: Hypertrophic obstructive cardiomyopathy (HOCM) Take 1 capsule by mouth Daily. 5 Active potassium chloride (KLOR-CON M10) 10 MEQ CR tablet Take 1 tablet by mouth Daily. 5 Active furosemide (LASIX) 20 MG tablet Take 1 tablet by mouth Daily. 5 Active Active Problems Problem Noted Date Diagnosed Date Hypertrophic obstructive cardiomyopathy (HOCM) 1 03/02/2024 Assessment & Plan (01/01/2025 4:04 PM EST): {CHF (Optional):88896} Assessment & Plan (12/31/2024 1:13 PM EST): {CHF (Optional):87963} Paroxysmal atrial fibrillation 01/06/2022 Overview (01/06/2022): Echocardiogram, 09/09/2020: EF 55-60%. Normally functioning prosthetic valve. Left atrium 5 cm Assessment & Plan (03/20/2024 5:52 PM EST): Now in chronic atrial fibrillation. Continue rate control strategy. I think sotalol risks outweigh benefits at this point. Cardioversion does not seem reasonable with the advancement of her memory loss. And she does not notice much symptoms. Continue Eliquis. Orders: metoprolol succinate XL (TOPROL-XL) 50 MG 24 hr tablet; Take 1 tablet by mouth Daily. Mixed hyperlipidemia 01/06/2022 Presence of cardiac pacemaker 01/06/2022 SSS (sick sinus syndrome) 01/06/2022 Overview (01/06/2022): MCOT, 08/15/2019: Atrial fibrillation and flutter with sinus pauses up to 3.1 seconds Dual-chamber, [employer] permanent pacemaker, 09/30/2021 S/P AVR 05/23/2016 Aortic valve stenosis 04/24/2016 Overview (01/06/2022): Status AVR with tissue valve 04/24/[address] Beltran Assessment & Plan (01/01/2025 4:04 PM EST): Hypertension 04/24/2016 Assessment & Plan (01/01/2025 4:04 PM EST): {Hypertension is (optional):[id number]} HOCM - Had ECHO done today. Report not done by the time patient was seen. - Discussed with patient and family today that Dr. Hendrix's nurse Christina will have to put gradient numbers into [employer] system and will be in contact with [...] ECHO today - Continue Metoprolol 50mg daily. Assessment & Plan (03/20/2024 5:52 PM EST): Slightly elevated. Increase metoprolol dose. Orders: metoprolol succinate XL (TOPROL-XL) 50 MG 24 hr tablet; Take 1 tablet by mouth Daily. Anxiety and depression 04/24/2016 Type 2 diabetes mellitus 04/24/2016 Morbid obesity 04/24/2016 Resolved Problems Problem Noted Date Diagnosed Date Resolved Date Current smoker 04/24/2016 07/19/2022 Encounters Date Type Department Care Team Description 01/01/2025 3:15 PM EST Office Visit [facility] [place] [address] Shannan Adair APRN Hypertrophic obstructive cardiomyopathy (HOCM) (Primary Dx); Nonrheumatic aortic valve stenosis; Atrial fibrillation, chronic; Pacemaker; Primary hypertension 01/01/2025 2:30 PM EST Ancillary Procedure [place] [address] [address] [place] [address] Hypertrophic obstructive cardiomyopathy (HOCM) 12/31/2024 Travel 12/29/2024 Telephone [facility] [place] [address] Kajal Hendrix MD 12/02/2024 Telephone [facility] [place] [address] Kajal Hendrix MD UPDATE ON PA FOR PT. 11/19/2024 10:30 AM EDT Ancillary Procedure [facility] [place] [address] Hypertrophic obstructive cardiomyopathy (HOCM) 11/19/2024 Travel 11/12/2024 Telephone [facility] [place] [address] Kajal Hendrix MD 11/11/2024 11:30 AM EDT Office Visit [facility] [address] [place] [address] Kjaal Hendrix MD Hypertrophic obstructive cardiomyopathy (HOCM) (Primary Dx); Nonrheumatic aortic valve stenosis; Atrial fibrillation, chronic; Pacemaker 11/11/2024 Telephone [facility] [address] [place] [address] Kajal Hendrix MD 11/11/2024 Travel 11/10/2024 Telephone [facility] [address] [place] [address] Shannan Adair APRN [facility] JULIAN-MEDICATION QUESTION 10/23/2024 Telephone [facility] [address] [place] [address] [address] [place] [address] Kassie Benjamin MD Remote Monitoring from Last 3 Months Family History Medical History Relation Name Comments Heart attack Father Heart failure Mother Heart disease Sister Relation Name Status Comments Father Mother Sister Social History Tobacco Use Types Packs/Day Years Used Date Smoking Tobacco: Former Cigarettes 1 45 0 04/25/1971 - 04/24/2016 Passive Smoke Exposure: Past Smokeless Tobacco: Never Tobacco Cessation:Counseling Given: No Alcohol Use Standard Drinks/Week Comments No 0 (1 standard drink = 0.6 oz pur e alcohol) Comments No Sex and Gender Information Value Date Recorded Sex Assigned at Not on file Legal Sex Female 10:03 AM EST Gender Identity Not on file Sexual Orientation Not on file 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 Not on williams e Last Filed Vital Signs Vital Sign Reading Time Taken Comments Blood Pressure 147/89 01/01/2025 3:42 PM EST Pulse 81 01/01/2025 3:42 PM EST Temperature 36.3 C (97.4 F) 05/22/2016 12:17 PM EDT Respiratory Rate 18 04/30/2016 6:00 AM EDT Oxygen Saturation 100% 01/01/2025 3:42 PM EST Inhaled Oxygen Concentration - - Weight 87.5 kg (193 lb) 01/01/2025 3:42 PM EST Height 167.6 cm (5' 6 ) 01/01/2025 3:42 PM EST Body Mass Index 31.15 01/01/2025 3:42 PM EST Plan of Treatment Upcoming Encounters Date Type Department Care Team (Late st Contact Info) Description 01/29/2025 12:30 PM EST Ancillary Procedure [facility] [address] [place] [address] 01/29/2025 2:00 PM EST Office Visit [facility] [address] [place] [address] Shannan Adair, ALEXY [address] [place] [address] Health Maintenance Due Date Last Done Comments DXA SCAN 1954 DIABETIC EYE EXAM 1964 DIABETIC FOOT EXAM 1964 URINE MICROALBUMIN-CREATININ E RATIO (uACR) 1964 Pneumococcal Vaccine 50+ (1 of 2 - PCV) 1973 TDAP/TD VACCINES (1 - Tdap) 1973 MAMMOGRAM 1994 COLOGUARD 07/24/1999 COLON CANCER SCREENING 5 YEA R SIGMOIDOSCOPY 07/24/1999 COLONOSCOPY 07/24/1999 COLORECTAL CANCER SCREENING 07/24/1999 CT COLONOGRAPHY 07/24/1999 FECAL OCCULT BLOOD TEST 07/24/1999 FIT Testing (1 year) 07/24/1999 LUNG CANCER SCREENING 2004 ZOSTER VACCINE (1 of 2) 2004 ANNUAL PHYSICAL 05/22/2016 HEPATITIS C SCREENING 05/22/2016 HEMOGLOBIN A1C 10/24/2016 04/23/2016, 03/31/2016 LIPID PANEL 03/31/2017 03/31/2016 INFLUENZA VACCINE 09/19/2024 01/12/2020, 01/29/2017 COVID-19 Vaccine ( season) 2024 02/01/2021, 05/20/2020, 04/22/2020 Medical Devices Implanted Type Area Program Dir Device Identifier Shelf Expiration Date Model / Serial / Lot Vlv Pericard Perimount Magna Ease 21 - [id number] Implanted:Qty: 1 on 04/24/2016 by Jose Beltran MD at [facility] Implant N/A: Aorta [employer] N[employer] 11/02/2019 [id number] / / Procedures Procedure Name Priority Date/Time Associated Diagnosis Comments ECHO COMPLETE W/ DOPPLER AND COLOR FLOW Routine 01/01/2025 3:30 PM EST Hypertrophic obstructive cardiomyopathy (HOCM) ECHO COMPLETE W/ DOPPLER AND COLOR FLOW Routine 11/19/2024 11:00 AM EDT Hypertrophic obstructive cardiomyopathy (HOCM) REMOTE DEVICE CHECK 10/31/2024 5 :17 PM EDT HEMOGLOBIN A1C Routine 04/23/2016 2:19 PM EST Nonrheumatic aortic valve stenosis LIPID PANEL STAT 03/31/2016 7:41 AM EST from Last 3 Months or Most Recently Relevant to Health Maintenance Results * ECHO COMPLETE W/ DOPPLER AND COLOR FLOW (01/01/2025 3:30 PM EST) Only the most recent of2 resultswithin the time period is included. EF(MOD-bp) 50.1 % LVIDd 2.8 cm LVIDs [...] MD CV ECHO ORDERABLES Final Res ult * Remote Device Check (10/31/2024 5:17 PM EDT) Date Time Interrogation Session [id number] [facility] Type Interrogation Session Remote Scheduled [facility] Implantable Pulse Generator Program Dir [employer] [facility] Implantable Pulse Generator Type IPG [facility] Implantable Pulse Generator Model 2272 Assurity MRI(TM) [facility] Implantable Pulse Generator Serial Number [id number] [facility] Implantable Pulse Generator Implant Date [id number] [facility] [employer] Battery Remaining Percentage 68.00 % [facility] Battery Remaining Longevity 78.0 mo [facility] Battery Voltage 2.990 [facility] Battery ENTERPRISE APPLICATIONS MANAGER Trigger 2.600 [facility] Battery Status Middle of Service [facility] Mp Statistic RA Percent Paced 1.00 [facility] Mp Statistic RV Percent Paced 89.00 [facility] Atrial Tachy Statistic AT/AF [place] Percent 99.00 [facility] Lead Channel RA Sensing Intrinsic Amplitude 1.300 [facility] Lead Channel Setting RA Sensing Sensitivity 0.50 [facility] Lead Channel RA Impedance Value 390 [facility] Lead Channel RA Pacing Threshold Amplitude 0.625 [facility] Lead Channel RA Pacing Threshold Pulse Width 0.5 [facility] Lead Channel RA Measurements Date and Time [id number] [facility] Lead Channel Setting RA Pacing Amplitude 2.500 [facility] Lead Channel Setting RA Pacing Pulse Width 0.5 [facility] Lead Channel RV Sensing Intrinsic Amplitude 9.700 [facility] Lead Channel Setting RV Sensing Sensitivity 2.00 [facility] Lead Channel RV Impedance Value 430 [facility] Lead Channel RV Pacing Threshold Amplitude 1.000 [facility] Lead Channel RV Pacing Threshold Pulse Width 0.5 [facility] Lead Channel RV Measurements Date and Time [id number] [facility] Lead Channel Setting RV Pacing Amplitude 1.250 [facility] Lead Channel Setting RV Pacing Pulse Width 0.5 [facility] Mp Setting Mode (NBG Code) DDDR [facility] Mp Setting Lower Rate Limit 60 [facility] Mp Setting AT Mode Switch Rate 180 [facility] Mp Setting Maximum Tracking Rate 120 [facility] Mp Setting Maximum Sensor Rate 120 [facility] Mp Setting PAV Delay 250 [facility] Mp Setting LUCIUS Delay 225 [facility] Lead Channel Setting RA Sensing Polarity Bipolar [facility] Lead Channel Setting RV Sensing Polarity Bipolar [facility] Lead Channel Setting RA Pacing Polarity Bipolar [facility] Lead Channel Setting RV Pacing Polarity Bipolar [facility] Lead Channel RA Pacing Threshold Polarity Bipolar [facility] Lead Channel RV Pacing Threshold Polarity Bipolar [facility] 10/31/2024 5:17 PM EDT Kassie Benjamin MD CV IMPLANTABLE CARDIAC DEVICE Final Result [facility] * Hemoglobin A1c (04/23/2016 2:19 PM EST) Hemoglobin A1C 5.40 4.80 - 5.60 % 04/23/2016 4:13 PM EST [facility] Blood Venipuncture / Unknown 04/23/2016 2:19 PM EST 04/23/2016 3:44 PM EST [facility] - 04/23/2016 4:13 PM EST The [place] [employer] recommends maintenance of Hemoglobin A1C at 7.0% or lower. Goals for Hemoglobin A1C reduction may need to be modified if hypoglycemia is a problem. Fred [facility] BLOOD ORDERABLES Final R esult Performing Organization Address City/[facility]/ZIP Co de Phone Number [facility]
[address] [place] [address], * Lipid Panel (03/31/2016 7:41 AM EST) Total Cholesterol 187 0 - 200 mg/dL 03/31/2016 8:34 AM EST [facility] Triglycerides 115 0 - 150 mg/dL 03/31/2016 8:34 AM EST [facility] HDL Cholesterol 55 40 - 60 mg/dL 03/31/2016 8:34 AM EST [facility] LDL Cholesterol 97 0 - 130 mg/dL 03/31/2016 8:34 AM EST [facility] Blood Line / Unknown 03/31/2016 7: 41 AM EST 03/31/2016 8:15 AM EST [facility] - 03/31/2016 8:34 AM EST Cholesterol Reference Ranges: Desirable < 200 mg/dL Borderline 200-239 mg/dL High Risk > 239 mg/dL Triglyceride Reference Ranges: Normal < 150 mg/dL Borderline 150-199 mg/dL High 200-499 mg/dL Very High > 499 mg/dL HDL Reference Ranges: Low < 40 mg/dL High > 59 mg/dL LDL Reference Ranges: Optimal < 100 mg/dL Near Optimal 100-129 mg/dL Borderline 130-159 mg/dL High 160-189 mg/dL Very High > 189 mg/dL Rachel Camara APRN LAB BLOOD ORDERABLES Final Result [facility]
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
--- OUTSIDE RECORDS SUMMARY | 2025-01-16 17:50 | XMS_ITS | Encounter Summary ---
Author Organization 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 Not on williams e documented as of this encounter Plan of Treatment Upcoming Encounters Date Type Department Care Team (Late st Contact Info) Description 01/29/2025 12:30 PM EST Ancillary Procedure [facility] [address] [place] [address] 01/29/2025 2:00 PM EST Office Visit [facility] [address] [place] [address] Shannan Adair APRN [address] [place] [address] documented as of this encounter Visit Diagnoses Not on filedocumented in this encounter Care Teams Project Financial Analyst Relationship Specialty Start Date End Date Fred Robbins MD [facility] [place] [address] PCP - General Family Medicine 11/10/24 documented as of this encounter
--- OUTSIDE RECORDS SUMMARY | 2025-01-16 17:50 | XMS_ITS | Encounter Summary ---
Author Organization [facility] Address [address] [place] [address] Care Team Providers Care Quahogger Name Role Phone Fred Robbins MD Primary Care Provider +1- [phone] Reason for Referral * Diagnostic Imaging (Routine) - Closed Specialty Diagnoses / Procedures Referred By Contac t Referred To Contact Diagnoses Hypertrophic obstructive cardiomyopathy (HOCM) Procedures Adult Transthoracic Echo Complete W/ Cont if Necessary Per Protocol WA ECHO TTHRC R-T 2D W/WOM-MODE COMPL SPEC&COLR D WA ECHO TRANSTHORC R-T 2D W/WO M-MODE REC F-UP/LMTD Kajal Hendrix MD [address] [place] [address] Phone: tel: fax: [facility] [address] [place] [address] Phone: tel: fax: Referral ID Status Reason Start Date Expiration Date Visits Re quested Visits Authorized [id number] Closed 12/05/2024 03/06/2026 1 1 Reason for Visit * Reason Onset Date Comments UPDATE ON PA FOR PT. 12/02/2024 Encounter Details Date Type Department Care Team (Late st Contact Info) Description 12/02/2024 Telephone [facility] [address] [place] [address] [place] [address] Kajal Hendrix MD [address] [place] [address] UPDATE ON PA FOR PT. 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 Pt is scheduled for follow up Echo on 12/31/24 @ 12:30. She verbalizes understanding. * Telephone Encounter - Christina Perez RN - 12/05/2024 10:26 AM EDT Have received confirmation that Camzyos was approved and that pt will be starting soon. Called [facility] to see if pt had started yet and they stated that she will be starting her medication todayas they received a phone call from pt POA that stated the medication would be arriving today and that they would have to sign for it. F/U ECHO ordered. * Telephone Encounter - Christina Perez, LING - 12/02/2024 12:12 PM EDT I spoke with Lopez this morning and they sent me that new PA. They needed a new one because they said the provider was different. * Telephone Encounter - Sarina Donovan MA - 12/02/2024 11:38 AM EDT Let Doug know it was still being worked on. Sindhu and Christina have we had an update on medication Camzyos. PA from [employer] came on the fax this morning. Thank you. * Telephone Encounter - Flaquito Dickson RegSched Rep - 12/02/2024 11:27 AM EDT Caller: DOUG BOWDEN Relationship: Emergency Contact Best call back number: [phone] What is the best time to reach you: ANY Who are you requesting to speak with (clinical staff, provider, specific staff member): CLINICAL What was the call regarding: PT'S NIECE IS WONDERING IF THERE WAS A PA UPDATE FOR PT. I DO SEE IT IN CHART, BUT I DON'T THINK HER NIECE IS ON ANY VERBAL NOR IS THERE HUB TO READ ON THE NOTE. PLEASE CALL WITH MORE INFORMATION. documented in this encounter Plan of Treatment Upcoming Encounters Date Type Department Care Team (Late st Contact Info) Description 01/29/2025 12:30 PM EST Ancillary Procedure [facility] [address] [place] [address] 01/29/2025 2:00 PM EST Office Visit [facility] [address] [place] [address] [place] [address] Shannan Adair APRN [address] [place] [address] Scheduled Orders Name Type Priority Associated Diagnoses Orde r Schedule Adult Transthoracic Echo Complete W/ Cont if Necessary Per Protocol Echocardiography Routine Hypertrophic obstructive cardiomyopathy (HOCM) Expected: 01/02/2025 (Approximate), Expires: 03/07/2026 documented as of this encounter Visit Diagnoses Diagnosis Hypertrophic obstructive cardiomyopathy (HOCM)- Primary documented in this encounter Care Teams Quahogger Relationship Specialty Start Date End Date Fred Robbins MD [address] [place] [address] PCP - General Family Medicine 11/10/24 documented as of this encounter
--- OUTSIDE RECORDS SUMMARY | 2025-01-16 17:50 | XMS_ITS | Encounter Summary ---
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 Okay for Lasix for now. * Telephone Encounter - Christina Perez RN - 12/29/2024 2:08 PM EST Received phone call from Samreen at [facility]. Was inquiring as to status of Camzyos andif we will be reordering. Instructed that pt will have ECHO on 12-[address] Hendrix will make that determination. Inquired as to how pt was doing with therapy and they relayed that she had an increasein shortness of breath and increased leg swelling. States that the Dr there placed her on Lasix forthis and that is getting better now. Instructed staff that we would let them know if Dr Hendrix plans on continuing Camzyos.Has ECHO and visit with Shannan Adair APRN after on 12-31-24 documented in this encounter Plan of Treatment Upcoming Encounters Date Type Department Care Team (Late st Contact Info) Description 01/29/2025 12:30 PM EST Ancillary Procedure [facility] [address] [place] [address] 01/29/2025 2:00 PM EST Office Visit [facility] [address] [place] [address] Shannan Adair APRN [address] [place] [address] documented as of this encounter Visit Diagnoses Not on filedocumented in this encounter Care Teams Terrazzo Installer Relationship Specialty Start Date End Date Fred Robbins MD [address] [place] [address] PCP - General Family Medicine 11/10/24 documented as of this encounter
--- OUTSIDE RECORDS SUMMARY | 2025-01-16 17:50 | XMS_ITS | Clinical Summary ---
Author Organization [facility] Address [address] [place] [address] Care Team Providers Care Repair Service Clerk Name Role Phone Pcp, No Primary Care Provider Unavailabl e Allergies Active Allergy Reactions Criticality Noted Date Comments Sulfa Drugs Rash Low 01/09/2022 Medications buPROPion XL (Wellbutrin XL) 300 MG 24 hr tablet Take 1 tablet by mouth 1 time each day. Active cholecalciferol (Vitamin D3) 25 MCG (1000 UT) tablet Take 1 tablet by mouth 1 time each day. Active cyanocobalamin 1000 MCG tablet Take 1 tablet by mouth 1 time each day. Active lisinopril 10 MG tablet Take 1 tablet by mouth 1 time each day. 12/28/2023 Active metoprolol succinate XL (Toprol-XL) 50 MG 24 hr tablet Take 1 tablet by mouth 1 time each day. 03/28/2024 Active Active Problems Problem Noted Date Diagnosed Date Chest pain 2024 Mixed hyperlipidemia 01/06/2022 Paroxysmal atrial fibrillation 01/06/2022 Overview (2024): Echocardiogram, 09/09/2020: EF 55-60%. Normally functioning prosthetic valve. Left atrium 5 cm Presence of cardiac pacemaker 01/06/2022 SSS (sick sinus syndrome) 01/06/2022 Overview (2024): MCOT, 08/15/2019: Atrial fibrillation and flutter with sinus pauses up to 3.1 seconds Dual-chamber, [place] [employer] permanent pacemaker, 09/30/2021 S/P AVR 05/23/2016 Anxiety and depression 04/24/2016 Aortic valve stenosis 04/24/2016 Overview (2024): Status AVR with tissue valve 04/24/[address] Beltran Hypertension 04/24/2016 Morbid obesity 04/24/2016 Type 2 diabetes mellitus 04/24/2016 Encounters Date Type Department Care Team Description 12/02/2024 Telephone [facility] [place] [address] [place] [address] Chris Galloway MD from Last 3 Months Social History Tobacco Use Types Packs/Day Years Used Date Smoking Tobacco: Never Assessed Comments No Sex and Gender Information Value Date Recorded Sex Assigned at Not on file Legal Sex Female 7:53 PM EDT Gender Identity Not on file Sexual Orientation Not on file Last Filed Vital Signs Vital Sign Reading Time Taken Comments Blood Pressure 139/72 2024 2:38 PM EDT Pulse 79 2024 2:38 PM EDT Temperature 37 C (98.6 F) 2024 12:00 PM EDT Respiratory Rate 13 2024 12:06 PM EDT Oxygen Saturation 95% 2024 2:38 PM EDT Inhaled Oxygen Concentration - - Weight 97.5 kg (215 lb) 2024 12:00 PM EDT Height 165.1 cm (5' 5 ) 2024 12:00 PM EDT Body Mass Index 35.78 2024 12:00 PM EDT Plan of Treatment Health Maintenance Due Date Last Done Comments [facility]-Bone Density Scan 1954 [facility]-Depression Screening 1954 [facility]-Diabetes: Hemoglobin A1C 1954 [facility]-Hepatitis C Screening 1954 [facility]-/Child/Adol SDOH Screenings 1954 [facility]-Obesity Intervention 1960 Diabetes: Dental Exam 1964 [facility]- SDOH Screenings 1972 [facility]-Adult SDOH Screenings 1972 [facility]-DTaP,Tdap,and Td Vaccine s (1 - Tdap) 1973 [facility]-Pneumococcal Vaccine: 50 + Years (1 of 2 - PCV) 1973 CT Colonography 07/24/1999 Colonoscopy 07/24/1999 FIT-DNA 07/24/1999 FIT 07/24/1999 FOBT 07/24/1999 Sigmoidoscopy 07/24/1999 [facility]-Colorectal Cancer Screening 07/24/1999 [facility]-Breast Cancer Screening 2004 [facility]-Zoster Vaccines (1 of 2) 2004 [facility]-RSV Vaccine: 60+ Years o r (1 - Risk 60-74 years 1-dose series) 2014 [id number] Vaccine (4 - season) 2024 02/01/2021, 05/20/2020, 04/22/2020 [facility]-Influenza Vaccine (#1) 10/20/202401/11, 01/29/2017 HPV Vaccines Aged Out No longer eligi ble based on patient's age to complete this topic [facility]-HIB Vaccines Aged Out No longer e ligible based on patient's age to complete this topic [facility]-Hepatitis A Vaccines Aged Out No longer eligible based on patient's age to complete this topic [facility]-IPV Vaccines Aged Out No longer e ligible based on patient's age to complete this topic UKY-Rotavirus Vaccines Aged Out No lo nger eligible based on patient's age to complete this topic Medical Devices Implanted Type Area Furniture Technician Device Identifier Shelf Expiration Date Model / Serial / Lot Tendril Sts Jimenez Lead-09/30/2021 Implanted:2021 (Quantity not on file) Lead Chest Wall Explara [id number] / / Tendril Sts Lead Jimenez Implanted:2021 (Quantity not on file) Lead Chest Wall [employer] [id number] / / Assurity Mri Jimenez Pacemaker- 022 Implanted:2021 (Quantity not on file) Pacemaker Chest Wall Explara [id number] / / Description:Entire CIED syst em implanted on 09/30/2021 LEAD MODEL: [id number] LEAD MODEL: 2088TC/52 Perimount Magna Ease 21 Pericardial Valve-04/24/2016 Implanted:2016 (Quantity not on file) Valve Heart Description:Vlv Pericard Per imount Magna Ease 21 - [id number] Implanted: Qty: 1 on 04/24/2016 by Jose Beltran MD at [facility] Implant N/A: Aorta [employer] 11/02/2019 [id number] [place] [address] [facility] Care Teams Repair Service Clerk Relationship Specialty Start Date End Date Pcp, [place] [address] PCP - General Family Medicine 07/23/24
--- OUTSIDE RECORDS SUMMARY | 2025-01-16 17:50 | XMS_ITS | Encounter Summary ---
Author Organization [facility] Address [address] [place] [address] Care Team Providers Care Requisition Approver Name Role Phone Fred Robbins MD Primary Care Provider [phone]- [phone] Reason for Referral * Diagnostic Imaging (Routine) - Closed Specialty Diagnoses / Procedures Referred By Contac t Referred To Contact Diagnoses Hypertrophic obstructive cardiomyopathy (HOCM) Procedures Adult Transthoracic Echo Complete W/ Cont if Necessary Per Protocol MO ECHO TTHRC R-T 2D W/WOM-MODE COMPL SPEC&COLR D MO ECHO TRANSTHORC R-T 2D W/WO M-MODE REC F-UP/LMTD Kajal Hendrix MD [address] [place] [address] Phone: tel: fax: [facility] [address] [place] [address] Phone: tel: fax: Referral ID Status Reason Start Date Expiration Date Visits Re quested Visits Authorized [id number] Closed 11/11/2024 02/10/2026 1 1 Encounter Details Date Type Department Care Team (Late st Contact Info) Description 11/11/2024 Telephone [facility] [place] [address] Kajal Hendrix MD [address] [place] [address] Social History Tobacco Use Types Packs/Day Years [...] 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 Pt has not started. Called [facility] and they are sending us another PA and have instructed me to fill that out and submit and then they will be able to tell me a pharmacy that will be sending medication out. * Telephone Encounter - Christina Perez RN - 11/25/2024 12:28 PM EDT Submitted enrollment form to [facility] and submitted on Cover my meds. * Telephone Encounter - Kajal Hendrix MD - 11/11/2024 2:28 PM EDT intermediate has reached out and stated they can work with patient on getting camzyos and making sure its taken and filled. Will place order for meds so that we can get it though [facility] system, and work on scheduling echoes. documented in this encounter Plan of Treatment Upcoming Encounters Date Type Department Care Team (Late st Contact Info) Description 01/29/2025 12:30 PM EST Ancillary Procedure [facility] [address] [place] [address] [place] [address] 01/29/2025 2:00 PM EST Office Visit [facility] [address] [place] [address] [address] [place], [place] [address] Shannan Adair APRN [address] [place] [address] documented as of this encounter Results * ECHO COMPLETE W/ [...] Diagnoses Diagnosis Hypertrophic obstructive cardiomyopathy (HOCM)- Primary Hypertrophic obstructive cardiomyopathy (HOCM) documented in this encounter Care Teams Requisition Approver Relationship Specialty Start Date End Date Toadvine, Fred K, MD [facility] [place] [address] PCP - General Family Medicine 11/10/24 documented as of this encounter
--- OUTSIDE RECORDS SUMMARY | 2025-01-16 17:50 | XMS_ITS | Encounter Summary ---
Author Organization [facility] Address [address] [place] [address] Care Team Providers Care Assistant Director Of Plant Operations Name Role Phone Pcp, No Primary Care Provider Unavailabl e Encounter Details Date Type Department Care Team (Late st Contact Info) Description 12/02/2024 Telephone [facility] [place] [address] [facility] [place] [id number] Chris Galloway MD [address] [place] [address] Social History Tobacco Use Types Packs/Day Years Used Date Smoking Tobacco: Never Assessed Comments No Sex and Gender Information Value Date Recorded Sex Assigned at Not on file Legal Sex Female 7:53 PM EDT Gender Identity Not on file Sexual Orientation Not on file documented as of this encounter Miscellaneous Notes * Telephone Encounter - Devika Keyes - 12/02/2024 1:38 PM EDT Clinical Concern/Question Reason for Call: Pt's relative called to cancel the 12/24/[address] Galloway. Caller declined to reschedule. Best contact number: [phone] (home) Optimal time of day to reach caller: ANYTIME Additional comments/information from caller: None Note: Please do not reply to this message. Follow-up communication and further actions as a result of this message need to be communicated with the patient directly, if the patient is not active onMyChart. If the patient is active on MyChart, they will receive notification of the communication/outcome via [employer] documented in this encounter Plan of Treatment Not on file documented as of this encounter Visit Diagnoses Not on filedocumented in this encounter Care Teams Assistant Director Of Plant Operations Relationship Specialty Start Date End Date Pcp, Francisca [address] [place] [address] PCP - General Family Medicine 07/23/24 documented as of this encounter
--- OUTSIDE RECORDS SUMMARY | 2025-01-16 17:50 | XMS_ITS | Encounter Summary ---
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 on file Not on williams e documented as of this encounter Plan of Treatment Upcoming Encounters Date Type Department Care Team (Late st Contact Info) Description 01/29/2025 12:30 PM EST Ancillary Procedure [facility] [address] [place] [phone] 01/29/2025 2:00 PM EST Office Visit [facility] [address] [place] [address] Shannan Adair APRN [address] [place] [address] documented as of this encounter Visit Diagnoses Not on filedocumented in this encounter Care Teams Slitter And Rewinder Machine Operator Relationship Specialty Start Date End Date Fred Robbins MD [facility] [place] [address] PCP - General Family Medicine 11/10/24 documented as of this encounter
--- NOTE | 2025-01-16 17:54 | XR_ITS ---
PROCEDURE INFORMATION: Exam: XR Chest Exam date and time: 01/16/2025 6:27 PM Age: 69 years old Clinical indication: Shortness of breath TECHNIQUE: Imaging protocol: Radiologic exam of the chest. Views: 1 view. COMPARISON: CR XR CHEST PORTABLE 04/05/2023 2:42 PM FINDINGS: Tubes, catheters and devices: Cardiac pacemaker on the right chest. Sternal wires. Lungs: Mild pulmonary vascular congestion. Pleural spaces: Unremarkable. No pleural effusion. No pneumothorax. Heart/Mediastinum: Prosthetic aortic valve. Stable cardiomegaly. Bones/joints: Unremarkable. IMPRESSION: Cardiomegaly and mild pulmonary vascular congestion.
[2025-01-16 17:59] LABS: Coronavirus 19, PCR Not Detected (NotDetected); Influenza A, PCR Not Detected (NotDetected); Influenza B, PCR Not Detected (NotDetected)
[2025-01-16 18:18] LABS: Hematocrit 42.9 % (37.0-47.0); Hemoglobin 13.7 g/dL (12.2-16.2); Immature Granulocytes % 0.5 %; Mean Corpuscular HGB Conc 31.9 g/dL (31.8-35.4); Mean Corpuscular Hemoglobin 32.9 pg (27.0-31.2); Mean Corpuscular Volume 103.1 fl (81-99); Nucleated Red Blood Cells % 0 %; Platelet Count 129 K/mm3 (142-424); Red Blood Count 4.16 M/mm3 (4.20-5.40); Red Cell Distribution Width-SD 54.4 fL; White Blood Count 6.6 K/mm3 (4.8-10.8)
[2025-01-16 18:24] LABS: Chloride 107 mmol/L (98-107); Potassium 4.9 mmoL/L (3.5-5.1); Sodium 143 mmol/L (136-145)
[2025-01-16 18:27] LABS: Alanine Aminotransferase 30 U/L (12-78); Alkaline Phosphatase 84 U/L (38-126); Anion Gap 14.9 mEq/L (5-15); Aspartate Amino Transferase 48 U/L (14-36); Bilirubin,Total 1.2 mg/dl (0.2-1.3); Blood Urea Nitrogen 27 mg/dl (7-17); Calcium 11.3 mg/dl (8.4-10.2); Carbon Dioxide 26 mmol/L (22.0-30.0); Creatinine Clearance Estimated 59 mL/min (50-200); Creatinine,Serum 1.30 mg/dl (0.52-1.04); Estimated Glomerular Filt Rate 40 ml/min (>60); GFR (African American) 49 ML/MIN (>60); Glucose 113 mg/dl (74-100); Total Protein,Serum 7.5 g/dl (6.3-8.2)
[2025-01-16 18:37] LABS: NT Pro Brain Natriuretic Pep. 3860 pg/mL (0-125)
[2025-01-16 18:45] LABS: Troponin I 0.01 ng/ml (0.00-0.034)
--- NOTE | 2025-01-16 19:06 | CT_ITS ---
PROCEDURE INFORMATION: Exam: CTA Chest With Contrast Exam date and time: 01/16/2025 8:48 PM Age: 69 years old Clinical indication: Shortness of breath TECHNIQUE: Imaging protocol: Computed tomographic angiography of the chest with contrast. Exam focused on the arteries. 3D rendering (Not supervised by radiologist): MIP and/or 3D reconstructed images were created by the technologist. Radiation optimization: All CT scans at this facility use at least one of these dose optimization techniques: automated exposure control; mA and/or kV adjustment per patient size (includes targeted exams where dose is matched to clinical indication); or iterative reconstruction. Contrast material: ISOUVE 370; Contrast volume: 70 ml; Contrast route: INTRAVENOUS (IV); COMPARISON: 1. CR XR CHEST PORTABLE 01/16/2025 6:27 PM 2. CR XR CHEST PORTABLE 04/05/2023 2:42 PM FINDINGS: Pulmonary arteries: Normal. No pulmonary emboli. Aorta: Aorta not well opacified as study was protocoled to assess the pulmonary arteries. No evidence of aneurysm. I can not assess for dissection. Atherosclerotic changes noted. Lungs: Unremarkable. No consolidation. No masses. Pleural spaces: Unremarkable. No pneumothorax. No pleural effusion. Heart: Cardiomegaly with open heart changes noted. Stable position of the dual lead pacer device. Reflux of contrast into the hepatic veins and IVC compatible with elevated right heart pressures. Lymph nodes: Unremarkable. No enlarged lymph nodes. Liver: Nodular contour of the liver compatible with cirrhosis. Ascites in the visualized upper abdomen noted. Bones/joints: Unremarkable. No acute fracture. Soft tissues: Unremarkable. IMPRESSION: 1. No evident PE. No other acute findings. 2. Nodular contour of the liver compatible with cirrhosis. Ascites. 3. Reflux of contrast into the hepatic veins and IVC compatible with elevated right heart pressures. Cardiomegaly.
[2025-01-16 19:21] LABS: Albumin Level 4.1 g/dl (3.5-5.0); Albumin/Globulin Ratio 1.2 (1.1-1.8); Globulin 3.4 g/dL (1.3-3.2)
--- NOTE | 2025-01-16 21:01 | PC.NURSE ---
POA pts fred Dial [phone]
[2025-01-16] MEDS: 0.9 % SODIUM CHLORIDE 50 ML VIAL 40 ML IV (21:24)
[2025-01-16] MEDS: IOPAMIDOL-370 (76%);100ML BOTTLE 70 ML IV (21:24)
[2025-01-16] MEDS: SODIUM CHLORIDE 0.9% 10ML SYR (RAD ONLY) 10 ML IV (21:24)
[2025-01-16 22:07] LABS: Microscopic, Urine URINE MICROSCOPIC (MICROSCOPIC)
--- NOTE | 2025-01-16 22:08 | PC.NURSE ---
pt in/out cathed, Avni assisted at bedside, pure wick in placed, sheets chnaged, call light within reach
[2025-01-16 22:11] LABS: Bilirubin,Urine Negative (Negative); Color,Urine YELLOW (Yellow); Glucose,Urine (UA) Negative (Negative); Ketones,Urine Negative (Negative); Leukocyte Esterase,Urine 2+ (Negative); PH,Urine 5.5 (5.0-8.5); Protein,Urine Negative (Negative); Specific Gravity, Urine 1.010 (1.005-1.030); Urobilinogen,Urine 0.2 EU/dl (0.2)
[2025-01-16 22:18] LABS: Bacteria,Urine 1+ /lpf; WBC,Urine TNTC #/hpf (0-3)
[2025-01-16] MEDS: FUROSEMIDE 40MG/4ML VIAL 40 MG IV (22:44)
--- NOTE | 2025-01-16 22:50 | PC.NURSE ---
pt POA Debbie updated on pt status and admission
--- NOTE | 2025-01-16 23:08 | PC.NURSE ---
[facility] called to [facility]
[2025-01-16 23:21] VITALS: BP 121/70; PULSE 66; RESP 14; TEMP 36.8; O2SAT 100
--- NOTE | 2025-01-16 23:22 | PC.NURSE ---
report called back to [facility] to Samreen
[2025-01-16 23:48] VITALS: BP 125/74; PULSE 72; RESP 14; TEMP 36.8; O2SAT 100
--- NOTE | 2025-01-16 23:48 | P.HP_ITS ---
<Statement entered by Flaquito Hirsch MD - 01/17/25 10:58> Rounded on patient after nurse practitioner. Personally examined and interviewed patient. Agree with exam findings and care plan as documented. History of Present Illness *Admission Date: 01/16/25 *Reason for visit:: SOB *History of present illness: Nicole Quintero is a 69-year-old female with past medical history significant for congestive heart failure, diabetes mellitus, history of cardiac pacemaker, p resence of prosthetic heart valve, hypertension, depression, COPD, vitamin D and E deficiency. Patient [facility] to [facility] from her nursing facility due to increased shortness of breath and lower extremity edema. Patient states that her shortness of breath has been progressive in nature. Reports today she felt significantly air hungry. Reports increased bilateral lower extremity swelling. Reports compliance with home medications that include Lasix 20 mg. Reports laying flat exacerbates her symptoms while sitting up alleviates some shortness of breath. Noticed an increase in shortness of breath with activity which is not baseline for patient. Due to worsening symptoms patient followed up to the emergency department for further evaluation treatment. Denies fever, chills, nausea, vomiting, cough, chest pain. Initial ED workup included laboratory studies and imaging study. Significant laboratory findings include BUN 27, creatinine 1.30, GFR 48, glucose 113, BNP 3860, RBC 4.16, platelet count 129, UA with 2+ blood, positive nitrate, 2+ leukocyte esterase, 1+ bacteria. Imaging study obtained with chest CTA, I personally reviewed showing no evidence of pulmonary embolism, nodular contour of the liver compatible with cirrhosis, ascites. Chest x-ray personally reviewed with evidence of mild pulmonary vascular congestion. Upon assessment of patient at bedside she was without acute distress, resting in bed comfortably. [facility] Disclaimer: The information contained in this section may have been updated after the patient was seen, as this information can be updated by other users. Medical History (Updated 01/17/25 @ 04:52 by Dayami Fenton APRN) CHF exacerbation [place] History of cardiac pacemaker Diabetes mellitus History of prior cigarette smoking Personal history of pneumonia (recurrent) Atherosclerotic heart disease of [place] coronary artery without angina pectoris Anxiety disorder, unspecified Acute ischemic heart disease, unspecified Presence of prosthetic heart valve Alertness, decreased Type 2 diabetes mellitus with hyperosmolarity with coma Essential (primary) hypertension Acquired stenosis of aortic valve H/O malignant neoplasm of breast History of falling Dilated cardiomyopathy Depression, unspecified Vitamin B12 deficiency anemia, unspecified Vitamin D deficiency, unspecified Other seasonal allergic rhinitis Advanced COPD Muscle weakness (generalized) Other symbolic dysfunctions Spastic gait Acute UTI Chronic obstructive pulmonary disease, unspecified Fall Breast cancer Aortic stenosis Paroxysmal atrial fibrillation Hypertension Surgical History History of lumpectomy of right breast H/O heart valve replacement with bioprosthetic valve Hx of cholecystectomy H/O: hysterectomy Aortic valve replaced Family History Mother Coronary artery disease Father Heart attack Sister Hypertension Hyperlipidemia Coronary artery disease Diabetes Social History Smoking Status: Former smoker years smoked: 43 smoking status stop date: 2012 second hand exposure: No alcohol intake: never counseling given: No current occupational status: unemployed Travel in the last 8 weeks?: None household members: none housing: jail lives independently: Yes marital status: single number of children: 0 number of grandchildren: 0 Hx Recent Travel: No Have you lived/traveled outside [place] in past 30 days?: No Contact w/someone who lives/traveled outside US past 30 days?: No Exposure to someone with infectious disease in past 14 days?: No Do you have a fever (greater than 100.4 F or 38 C)?: No Have you tested positive for COVID-19?: No Exposed to someone with COVID-19 in past 14 days?: No Do you have a sore throat?: No Do you have a cough?: No Do you have any weakness?: No Are you experiencing any nausea/vomitting?: No Do you have any diarrhea?: No Are you experiencing any unusual bleeding?: No Do you have any muscle aches/pain?: No Do you have any abdominal pain?: No Are you experiencing loss of taste or smell?: No Other Medical History Have you received the Flu Vaccine for this season: No Have you received the Pneumonia Vaccine: Yes (09/02/24) Review of Systems Review of Systems Review of systems:: pertinent systems reviewed and negative unless documented below Constitutional Constitutional: Reports as per HPI Eyes Eyes: Reports system reviewed and no additional complaints, except as documented and Reports as per HPI ENT Ears, Nose, Mouth, and Throat: Reports system reviewed and no additional complaints, except as documented and Reports as per HPI *Cardiovascular Cardiovascular: Reports as per HPI, Reports dyspnea, Reports dyspnea on exertion and Reports leg edema *Respiratory Respiratory: Reports as per HPI, Reports dyspnea and Reports dyspnea on exertion *Gastrointestinal Gastrointestinal: Reports system reviewed and no additional complaints, except as documented and Reports as per HPI *Genitourinary Genitourinary: Reports system reviewed and no additional complaints, except as documented and Reports as per HPI *Musculoskeletal Musculoskeletal: Reports system reviewed and no additional complaints, except as documented and Reports as per HPI Integumentary/Breasts Skin/Breast: Reports system reviewed and no additional complaints, except as documented and Reports as per HPI *Neurologic Neurologic: Reports system reviewed and no additional complaints, except as documented and Reports as per HPI Psychiatric Psychiatric: Reports system reviewed and no additional complaints, except as documented and Reports as per HPI Endocrine Endocrine: Reports as per HPI Hematologic/Lymphatic Hematologic/Lymphatic: Reports system reviewed and no additional complaints, except as documented and Reports as per HPI Allergic/Immunologic Allergic/Immunologic: Reports system reviewed and no additional complaints, except as documented and Reports as per HPI Meds Home Medications and Allergies Home Medications ?Medication ?Instructions ?Recorded ?Confirmed ?Type multivitamin 1 tab PO DAILY 10/18/2112/21 History apixaban 5 mg tablet (Eliquis) 5 mg PO BID 90 days #18 0 tabs 12/13/23 01/17/25 Rx bupropion HCl 300 mg 24 hr tablet, 300 mg PO DAILY 90 days #90 tabs 12/13/23 01/17/25 Rx extended release fluticasone 250 mcg-salmeterol 50 1 inh inhalation BID #60 ea 01/28/24 01/17/25 Rx mcg/dose blistr powdr for inhalation acetaminophen 500 mg tablet 1,000 mg PO Q6H PRN Pain 0 11/04/24 01/17/25 History albuterol sulfate 90 mcg/actuation 2 puff inhalation Q 4-6H PRN 11/04/24 01/17/25 Rx aerosol inhaler (Ventolin HFA) shortness of breath or wheezing #8.5 grams dextromethorphan-guaifenesin 10 20 ml PO .q6 PRN 11/0411/25/24 History mg-100 mg/5 mL oral syrup furosemide 20 mg tablet (Lasix) 20 mg PO DAILY 5 01/17/25 History melatonin 3 mg capsule 3 mg PO HS 11/04/24 01/17/25 History metoprolol succinate 50 mg 50 mg PO DAILY 11/04/24 History tablet,extended release 24 hr fluconazole 150 mg tablet 150 mg PO WEEKLY 12/30/24 History potassium chloride 10 mEq 10 meq PO DAILY 12/30/24 History capsule,extended release mavacamten 5 mg capsule (Camzyos) 5 mg PO BID 01/16/25 01/17/25 History New Prescriptions to Start Prescriptions: Allergies Allergy/AdvReac Type Severity Reaction Status Date / Time Sulfa (Sulfonamide Allergy Unknown Verified 11/04/24 15:58 Antibiotics) allergy reaction Exam Data for Last 24 hours Vital signs and Labs for Last 24 Hours: Temp Pulse Resp BP Pulse Ox O2 Del Method 98.3 F 66 14 121/70 97 Room Air 01/16/25 23:21 01/16/25 23:21 01/16/25 23:21 01/16/25 23:21 01/16/25 17:45 01/16/25 23:21 Laboratory Results - last 24 hr 01/16/25 17:43: SARS-CoV-2 (PCR) Not detected, Influenza Type A (PCR) Not detected, Influenza Type B (PCR) Not detected, RSV (PCR) Not detected, Rhinovirus (PCR) Not detected 01/16/25 18:09: WBC 6.6, RBC 4.16 L, Hgb 13.7, Hct 42.9, MCV 103.1 H, MCH 32.9 H , MCHC 31.9, RDW 14.4, Plt Count 129 L, MPV 12.9 H, Neut % (Auto) 74.6, Lymph % (Auto) 11.9, [place] % (Auto) 9.4 H, Eos % (Auto) 3.0, Baso % (Auto) 0.6, Neut # (Auto) 4.9, Lymph # (Auto) 0.8, [place] # (Auto) 0.6, Eos # (Auto) 0.2, Baso # (Auto) 0.0, Sodium 143, Potassium 4.9, Chloride 107, Carbon Dioxide 26, Anion Gap 14.9, BUN 27 H, Creatinine 1.30 H, Estimated Creat Clear 59, Estimated GFR 40 L, Est GFR ( Amer) 49 L, Glucose 113 H, Calcium 11.3 H, Total Bilirubin 1.2, AST 48 H, ALT 30, Alkaline Phosphatase 84, Troponin I 0.01, NT-Pro-B Natriuret Pep 3860 H, Total Protein 7.5, Albumin 4.1, Globulin 3.4 H, Albumin/Globulin Ratio 1.2 01/16/25 21:45: Urine Color Yellow, Urine Appearance Clear, Urine pH 5.5, Ur Specific [place] 1.010, Urine Protein Negative, Urine Glucose (UA) Negative, Urine Ketones Negative, Urine Blood 2+ A, Urine Nitrate Positive A, Urine Bilirubin Negative, Urine Urobilinogen 0.2, Ur Leukocyte Esterase 2+ A, Urine RBC 3-5, Urine WBC Tntc, Ur Squamous Epith Cells None, Urine Bacteria 1+ I & O for Last 24 hours: Intake & Output 01/13/25 01/14/25 01/15/25 01/16/25 23:59 23:59 23:59 23:59 Weight 92.533 kg Constitutional Constitutional: no acute distress *Routine HEENT Exam Head: Present normocephalic and atraumatic Eye: Present EOMI and PERRL ENT: Present mucous membranes moist *Routine Neck Exam Neck: Present supple and full ROM *Routine Respiratory Exam Respiratory: Present diminished air movement, normal respiratory effort and able to speak in complete sentences *Routine Cardiovascular Exam Cardiovascular: Present RRR, Normal S1 and Normal S2 *Routine Abdominal Exam Abdominal: Present soft and normoactive bowel sounds *Routine Rectal Exam Rectal:: deferred *Routine Genitalia Exam Genitalia:: deferred *Routine Extremities Exam Extremities: Present full ROM and pulses intact *Routine Skin Exam Skin: Present intact *Routine Neurological Exam Neurological: Present alert, oriented X3 and CN II-XII intact Routine Psychiatric Exam Psychiatric: Present normal affect and normal thought process Assessment and Plan *Assessment and plan (1) Acute UTI: Status: Acute Category: Medical Code(s): N39.0 - Urinary tract infection, site not specified (2) CHF exacerbation: Status: Acute Qualifiers: Heart failure type: unspecified Qualified Code(s): I50.9 - Heart failure, unspecified Category: Medical Code(s): I50.9 - Heart failure, unspecified (3) Advanced COPD: Status: Acute Category: Medical Code(s): J44.9 - Chronic obstructive pulmonary disease, unspecified (4) History of cardiac pacemaker: Status: Acute Category: Medical Code(s): Z95.0 - Presence of cardiac pacemaker (5) Essential (primary) hypertension: Status: Acute Category: Medical Code(s): I10 - Essential (primary) hypertension (6) Presence of prosthetic heart valve: Status: Acute Category: Medical Code(s): Z95.2 - Presence of prosthetic heart valve (7) CKD (chronic kidney disease) stage 3, GFR 30-59 ml/min: Status: Acute Category: Medical Code(s): N18.30 - Chronic kidney disease, stage 3 unspecified (8) Diabetes mellitus: Status: Acute Qualifiers: Diabetes mellitus type: type 2 Diabetes mellitus jail insulin use: without long term acute care registered nurse use Diabetes mellitus complication status: with other specified complication Qualified Code(s): E11.69 - Type 2 diabetes mellitus with other specified complication Category: Medical Code(s): E11.9 - Type 2 diabetes mellitus without complications Plan Assessment/plan: I personally discussed the management of this patient with the emergency department provider Dr. Rosales, I agree with hospital admission for further evaluation treatment. Patient is a 69-year-old female presented with worsening shortness of breath, lower extremity edema. Imaging study obtained with evidence of pulmonary congestion and cardiomegaly. Positive urinary tract infection, 2 g Rocephin received in ED, resume IV antibiotic, urinary culture pending. Monitor/trend labs, specifically renal function and electrolytes. consult cardiology, monitor intake output. 1. Acute UTI: UA nitrate positive, urine blood 2+, urine leukocyte esterase 2+, 1+ bacteria. Urine culture obtained, pending. 2 g IV Rocephin received in emergency department, resume IV antibiotic therapy. Follow cultures for any additional/needed change. 2. Acute CHF exacerbation: Increased lower extremity edema, progressive shortness of breath. BNP 3860, consistent with prior findings. Imaging study- chest x-ray, with mild pulmonary vascular congestion. Received Lasix 40 mg IV in the ED-resume IV Lasix diuresis. On room air with adequate saturations. Home regime Lasix 20 mg daily. Consult placed to cardiology for further evaluation/input. Strict I's and O's. Monitor electrolytes, renal precautions due to CKD replacement. 3. COPD: Currently without complication, resume home inhaler, fluticasone propion-salmeterol 250-50 mcg, 1 inhalation twice daily. Albuterol sulfate 19 mcg as needed. Pulmonary hygiene. 4. Hypertension/history cardiac pacemaker/presence of prosthetic heart valve: Normotensive, without complication, resume antihypertensive medication metoprolol succinate ER 50 mg daily, chronic anticoagulation with Eliquis 5 mg twice daily. INR with morning labs. 8. CKD: Creatinine 1.30, GFR 40-per Prior finding appears the same- although per chart review appears to be trending upwards. Likely need to be monitored closely to avoid worsening renal function. Avoid nephrotoxic medication. 9. Diabetes mellitus type 2: Stable, glucose 100 range. Per chart review patient has been monitored per jail provider with adequate blood glucose and fasting blood sugars. Not requiring antihyperglycemic medication. With morning labs. hemoglobin A1c with morning labs. 10. DVT prophylaxis: Eliquis Full code Healthy heart diet/fluid restriction
[2025-01-16 23:49] VITALS: BMI 37.1
[2025-01-17 00:21] LABS: Troponin I 0.02 ng/ml (0.00-0.034)
[2025-01-17 04:00] VITALS: BP 106/51; PULSE 61; RESP 12; TEMP 36.6; O2SAT 100; BMI 37.0
[2025-01-17 07:07] LABS: Hematocrit 40.9 % (37.0-47.0); Hemoglobin 13.1 g/dL (12.2-16.2); Immature Granulocytes % 0.2 %; Mean Corpuscular HGB Conc 32.0 g/dL (31.8-35.4); Mean Corpuscular Hemoglobin 33.0 pg (27.0-31.2); Mean Corpuscular Volume 103.0 fl (81-99); Nucleated Red Blood Cells % 0 %; Platelet Count 114 K/mm3 (142-424); Red Blood Count 3.97 M/mm3 (4.20-5.40); Red Cell Distribution Width-SD 53.5 fL; White Blood Count 9.7 K/mm3 (4.8-10.8)
[2025-01-17 07:27] LABS: INR 1.18 (0.9-1.1); Prothrombin Time 12.9 seconds (10.1-12.5)
[2025-01-17 07:32] LABS: Alanine Aminotransferase 28 U/L (12-78); Albumin Level 3.7 g/dl (3.5-5.0); Albumin/Globulin Ratio 1.2 (1.1-1.8); Alkaline Phosphatase 92 U/L (38-126); Anion Gap 8.1 mEq/L (5-15); Aspartate Amino Transferase 42 U/L (14-36); Bilirubin,Total 1.5 mg/dl (0.2-1.3); Blood Urea Nitrogen 25 mg/dl (7-17); Calcium 11.2 mg/dl (8.4-10.2); Carbon Dioxide 26 mmol/L (22.0-30.0); Chloride 107 mmol/L (98-107); Creatinine Clearance Estimated 67 mL/min (50-200); Creatinine,Serum 1.30 mg/dl (0.52-1.04); Estimated Glomerular Filt Rate 40 ml/min (>60); GFR (African American) 49 ML/MIN (>60); Globulin 3.0 g/dL (1.3-3.2); Glucose 118 mg/dl (74-100); Magnesium 2.2 mg/dl (1.6-2.3); Phosphorous 3.0 mg/dl (2.5-4.5); Potassium 4.1 mmoL/L (3.5-5.1); Sodium 137 mmol/L (136-145); Total Protein,Serum 6.7 g/dl (6.3-8.2)
[2025-01-17 07:38] LABS: Troponin I 0.01 ng/ml (0.00-0.034)
[2025-01-17 08:00] VITALS: BP 116/57; PULSE 79; RESP 16; TEMP 37.1; O2SAT 98
[2025-01-17] MEDS: FUROSEMIDE 40MG/4ML VIAL 40 MG IV ×2 (08:54→16:17)
--- NOTE | 2025-01-17 09:12 | [facility].PHAAMS2 ---
- Antimicrobial Stewardship Review culture & sensitivity review Stewardship interventions: culture & sensitivity review (ROCEPHIN STARTED ON 01/16/25, URINE CX PENDING)
[2025-01-17 10:25] LABS: Hemoglobin A1C 5.3 % (4.0-6.0)
[2025-01-17] MEDS: METOPROLOL SUCCINATE XL 50MG TABLET 50 MG PO (10:25)
[2025-01-17] MEDS: APIXABAN 5MG TABLET 5 MG PO ×2 (10:25→20:44)
[2025-01-17] MEDS: CALCITONIN 200IU/ML INJ VIAL 400 UNIT SUBCUT ×2 (10:27→20:44)
--- NOTE | 2025-01-17 10:45 | P.PN_ITS ---
Subjective *Date: 01/17/25 *Time: 11:41 Interval history: Still somewhat confused this morning. Does not recall coming to the hospital but feels she is at her baseline mentation. Unsure her baseline, will clarify with nursing facility. Responding well to diuretics. No nausea or vomiting. Tolerating breakfast on exam. Stable on room air. Medical Exam Vital signs and Labs for Last 24 Hours: Vital Signs Temp Pulse Pulse Resp BP BP Pulse Ox 01/17/25 08:00 98.7 F 79 16 116/57 L 98 01/17/25 06:39 01/17/25 05:00 01/17/25 04:00 97.9 F 61 12 106/51 L 100 01/17/25 03:00 01/17/25 01:00 01/16/25 23:48 98.2 F 72 14 125/74 100 01/16/25 23:38 01/16/25 23:21 98.3 F 66 14 121/70 01/16/25 17:45 97.9 F 62 18 116/70 97 O2 Del Method 01/17/25 08:00 Room Air 01/17/25 06:39 Room Air 01/17/25 05:00 Room Air 01/17/25 04:00 Room Air 01/17/25 03:00 Room Air 01/17/25 01:00 Room Air 01/16/25 23:48 Room Air 01/16/25 23:38 Room Air 01/16/25 23:21 Room Air 01/16/25 17:45 Room Air Intake and Output 01/16/25 01/17/25 01/17/25 23:59 07:59 15:59 Intake Total 240 / 240 Output Total 1900 / 2550 650 / 2550 Balance -1660 / -2310 -650 / -2310 Intake: Intake, Oral Amount 240 / 240 Output: Output, Urine Amount 1900 / 2550 650 / 2550 Other: Number of Unmeasured Voids 0 0 Weight 104.961 kg 104.689 kg Patient Weight 01/17/25 23:59 Weight 104.689 kg Laboratory Results - last 24 hr 01/16/25 17:43: SARS-CoV-2 (PCR) Not detected, Influenza Type A (PCR) Not detected, Influenza Type B (PCR) Not detected, RSV (PCR) Not detected, Rhinovirus (PCR) Not detected 01/16/25 18:09: WBC 6.6, RBC 4.16 L, Hgb 13.7, Hct 42.9, MCV 103.1 H, MCH 32.9 H , MCHC 31.9, RDW 14.4, Plt Count 129 L, MPV 12.9 H, Neut % (Auto) 74.6, Lymph % (Auto) 11.9, [place] % (Auto) 9.4 H, Eos % (Auto) 3.0, Baso % (Auto) 0.6, Neut # (Auto) 4.9, Lymph # (Auto) 0.8, [place] # (Auto) 0.6, Eos # (Auto) 0.2, Baso # (Auto) 0.0, Sodium 143, Potassium 4.9, Chloride 107, Carbon Dioxide 26, Anion G ap 14.9, BUN 27 H, Creatinine 1.30 H, Estimated Creat Clear 59, Estimated GFR 40 L, Est GFR ( Amer) 49 L, Glucose 113 H, Calcium 11.3 H, Total Bilirubin 1.2, AST 48 H, ALT 30, Alkaline Phosphatase 84, Troponin I 0.01, NT-Pro-B Natriuret Pep 3860 H, Total Protein 7.5, Albumin 4.1, Globulin 3.4 H, Albumin/Globulin Ratio 1.2 01/16/25 21:45: Urine Color Yellow, Urine Appearance Clear, Urine pH 5.5, Ur Specific [place] 1.010, Urine Protein Negative, Urine Glucose (UA) Negative, Urine Ketones Negative, Urine Blood 2+ A, Urine Nitrate Positive A, Urine Bilirubin Negative, Urine Urobilinogen 0.2, Ur Leukocyte Esterase 2+ A, Urine RBC 3-5, Urine WBC Tntc, Ur Squamous Epith Cells None, Urine Bacteria 1+ 01/16/25 23:50: Troponin I 0.02 01/17/25 06:40: WBC 9.7 D, RBC 3.97 L, Hgb 13.1, Hct 40.9, MCV 103.0 H, MCH 33.0 H, MCHC 32.0, RDW 14.1, Plt Count 114 L, MPV 13.2 H, Neut % (Auto) 81.0 H, Lymph % (Auto) 6.5 L, [place] % (Auto) 10.1 H, Eos % (Auto) 1.7, Baso % (Auto) 0.5, Neut # (Auto) 7.8, Lymph # (Auto) 0.6 L, [place] # (Auto) 1.0, Eos # (Auto) 0.2, Baso # (Auto) 0.1, PT 12.9 H, INR 1.18 H, Sodium 137, Potassium 4.1, Chloride 107, Carbon Dioxide 26, Anion Gap 8.1, BUN 25 H, Creatinine 1.30 H, Estimated Creat Clear 67, Estimated GFR 40 L, Est GFR ( Amer) 49 L, Glucose 118 H, Hemoglobin A1c 5.3, Calcium 11.2 H, Phosphorus 3.0, Magnesium 2.2, Total Bilirubin 1.5 H, AST 42 H, ALT 28, Alkaline Phosphatase 92, Troponin I 0.01, Total Protein 6.7, Albumin 3.7, Globulin 3.0, Albumin/Globulin Ratio 1.2 I & O for Labs for Last 24 Hours: Intake & Output 01/14/25 01/15/25 01/16/25 01/17/25 23:59 23:59 23:59 23:59 Intake Total 240 / 240 Output Total 2550 / 2550 Balance -2310 / -2310 Weight 104.961 kg 104.689 kg Constitutional: Present no acute distress, obese, chronically ill appearing and cooperative Head: Present atraumatic Respiratory: Present crackles (Bilateral bases) and normal respiratory effort; Absent rhonchi or wheezes Cardiac: Present Reg Rate and Rhythm GI: Present soft and normal bowel sounds; Absent distention or tenderness Extremities: Present normal inspection, full ROM and edema (3+ to 5) Skin: Present intact; Absent erythema Neuro: Present Grossly Intact, alert, awake and moves all extremities Comment:: Oriented to self. Unsure where she is or why. Answers basic questions for review of systems apart Assessment and Plan *Assessment and plan (1) Acute UTI: Status: Acute Category: Medical Code(s): N39.0 - Urinary tract infection, site not specified (2) CHF exacerbation: Status: Acute Qualifiers: Heart failure type: unspecified Qualified Code(s): I50.9 - Heart failure, unspecified Category: Medical Code(s): I50.9 - Heart failure, unspecified (3) Advanced COPD: Status: Acute Category: Medical Code(s): J44.9 - Chronic obstructive pulmonary disease, unspecified (4) History of cardiac pacemaker: Status: Acute Category: Medical Code(s): Z95.0 - Presence of cardiac pacemaker (5) Essential (primary) hypertension: Status: Acute Category: Medical Code(s): I10 - Essential (primary) hypertension (6) Presence of prosthetic heart valve: Status: Acute Category: Medical Code(s): Z95.2 - Presence of prosthetic heart valve (7) CKD (chronic kidney disease) stage 3, GFR 30-59 ml/min: Status: Acute Category: Medical Code(s): N18.30 - Chronic kidney disease, stage 3 unspecified (8) Diabetes mellitus: Status: Acute Qualifiers: Diabetes mellitus complication status: with other specified complication Diabetes mellitus penitentiary insulin use: without remote computer terminal operator use Diabetes mellitus type: type 2 Qualified Code(s): E11.69 - Type 2 diabetes mellitus with other specified complication Category: Medical Code(s): E11.9 - Type 2 diabetes mellitus without complications Plan Patient is a 69-year-old female presented with worsening shortness of breath, lower extremity edema. Imaging study obtained with evidence of pulmonary co ngestion and cardiomegaly. Positive urinary tract infection, 2 g Rocephin received in ED, resume IV antibiotic, urinary culture pending. Monitor/trend labs, specifically renal function and electrolytes. Continue diuresis. If still admitted Sunday, will consider cardiology evaluate patient at that time. Will continue antibiotics for UTI. Showing improvement. Problems addressed as follows: Acute UTI: - UA nitrate positive, urine blood 2+, urine leukocyte esterase 2+, 1+ bacteria. Urine culture obtained, pending. - Continue 2 g IV Rocephin received in emergency department, resume IV anti biotic therapy. Follow cultures for any additional/needed change. - White count improved to 9.7. Repeat CBC, CMP, magnesium ordered for the morning. Kidney function stable with BUN 25, creatinine 1.3. Acute on chronic HFpEF exacerbation Hypertrophic cardiomyopathy - Echo from April 06, 2023 shows grade 3 diastolic dysfunction. BNP elevated at 3800 on admission. - Continue diuresis with Lasix 40 mg IV twice daily - Still has significant edema on exam. Stable on room air - Continue metoprolol succinate 50 mg daily - Continue Camzyos 5 mg twice daily COPD: Currently without complication, resume home inhaler, fluticasone propion- salmeterol 250-50 mcg, 1 inhalation twice daily. Albuterol sulfate 19 mcg as needed. Pulmonary hygiene. Hypertension/history cardiac pacemaker/presence of prosthetic heart valve: - Normotensive, without complication, resume antihypertensive medication metoprolol succinate ER 50 mg daily, chronic anticoagulation with Eliquis 5 mg twice daily Depression: Continue Wellbutrin 300 mg daily CKD 3 Hypercalcemia - Creatinine 1.30, on admission, stable this morning on labs. Monitor with CMP, CBC, magnesium daily - Calcium mildly elevated 11.2. Has been elevated over the past 2 months per chart review. Will hold on giving fluids due to volume overload status but will administer 400 mg Calcitonin subcu twice today. Repeat level ordered for the morning. Diabetes mellitus type 2: Stable, glucose 119 on morning labs. Continue sliding scale insulin with fingersticks ACHS. - A1c normal at 5.3. DVT prophylaxis: Eliquis Full code Healthy heart diet/fluid restriction
[2025-01-17 11:44] VITALS: BMI 37.0
[2025-01-17 12:00] VITALS: BP 129/74; PULSE 81; RESP 14; TEMP 36.5; O2SAT 97
[2025-01-17 16:00] VITALS: BP 114/64; PULSE 71; RESP 18; TEMP 36.8; O2SAT 94
--- NOTE | 2025-01-17 17:33 | PC.NURSE ---
patient is a/0x2 with periods of confusion. remains on room air tolerating well. PW in place, continuing to diurese. 1500ml fluid restriction per MD. new IV placed 22 in the left wrist due to previous IV falling out. call light within reach, bed alarm on. no current requests at this time.
[2025-01-17 18:02] LABS: Albumin Level 3.6 g/dl (3.5-5.0); Chloride 103 mmol/L (98-107); Potassium 3.9 mmoL/L (3.5-5.1); Sodium 138 mmol/L (136-145)
[2025-01-17 18:05] LABS: Alanine Aminotransferase 32 U/L (12-78); Albumin/Globulin Ratio 1.3 (1.1-1.8); Alkaline Phosphatase 88 U/L (38-126); Anion Gap 12.9 mEq/L (5-15); Aspartate Amino Transferase 39 U/L (14-36); Bilirubin,Total 1.6 mg/dl (0.2-1.3); Blood Urea Nitrogen 22 mg/dl (7-17); Calcium 10.2 mg/dl (8.4-10.2); Carbon Dioxide 26 mmol/L (22.0-30.0); Creatinine Clearance Estimated 67 mL/min (50-200); Creatinine,Serum 1.30 mg/dl (0.52-1.04); Estimated Glomerular Filt Rate 40 ml/min (>60); GFR (African American) 49 ML/MIN (>60); Globulin 2.8 g/dL (1.3-3.2); Glucose 166 mg/dl (74-100); Total Protein,Serum 6.4 g/dl (6.3-8.2)
[2025-01-17 20:00] VITALS: BP 125/74; PULSE 68; RESP 16; TEMP 36.8; O2SAT 98
[2025-01-17] MEDS: MELATONIN 5MG TABLET 2.5 MG PO (20:43)
[2025-01-18] VITALS: BP 136/71; PULSE 66; RESP 14; TEMP 36.4; O2SAT 95
[2025-01-18] MEDS: ONDANSETRON 4MG/2ML VIAL 4 MG IV (01:02)
--- NOTE | 2025-01-18 01:52 | PC.NURSE ---
Pt AOx2, pleasant. Pt c/o nausea earlier which was treated per MAR with relief. No significant changes at this time. Pt currently resting in bed with eyes closed. Respirations even and unlabored. Bed is low, locked, and call light is in reach.
[2025-01-18 04:00] VITALS: BP 118/75; PULSE 66; RESP 12; TEMP 36.8; O2SAT 92; BMI 36.0
[2025-01-18 07:15] LABS: Hematocrit 39.6 % (37.0-47.0); Hemoglobin 12.9 g/dL (12.2-16.2); Immature Granulocytes % 0.5 %; Mean Corpuscular HGB Conc 32.6 g/dL (31.8-35.4); Mean Corpuscular Hemoglobin 32.9 pg (27.0-31.2); Mean Corpuscular Volume 101.0 fl (81-99); Nucleated Red Blood Cells % 0 %; Platelet Count 119 K/mm3 (142-424); Red Blood Count 3.92 M/mm3 (4.20-5.40); Red Cell Distribution Width-SD 52.2 fL; White Blood Count 8.0 K/mm3 (4.8-10.8)
--- NOTE | 2025-01-18 07:24 | EXP.DC.SUM ---
General Admission date:: 01/16/25 Discharge date: 01/18/25 HPI HPI HPI: Nicole Quintero is a 69-year-old female with past medical history significant for congestive heart failure, diabetes mellitus, history of cardiac pacemaker, presence of prosthetic heart valve, hypertension, depression, COPD, vitamin D and E deficiency. Patient presents to [facility] from her nursing facility due to increased shortness of breath and lower extremity edema. Patient states that her shortness of breath has been progressive in nature. Reports today she felt significantly air hungry. Reports increased bilateral lower extremity swelling. Reports compliance with home medications that include Lasix 20 mg. Reports laying flat exacerbates her symptoms while sitting up alleviates some shortness of breath. Noticed an increase in shortness of breath with activity which is not baseline for patient. Due to worsening symptoms patient followed up to the emergency department for further evaluation treatment. Denies fever, chills, nausea, vomiting, cough, chest pain. Initial ED workup included laboratory studies and imaging study. Significant laboratory findings include BUN 27, creatinine 1.30, GFR 48, glucose 113, BNP 3860, RBC 4.16, platelet count 129, UA with 2+ blood, positive nitrate, 2+ leukocyte esterase, 1+ bacteria. Imaging study obtained with chest CTA, I personally reviewed showing no evidence of pulmonary embolism, nodular contour of the liver compatible with cirrhosis, ascites. Chest x-ray personally reviewed with evidence of mild pulmonary vascular congestion. Upon assessment of patient at bedside she was without acute distress, resting in bed comfortably. Hospital Course Hospital Course Hospital Course: Patient is a 69-year-old female presented with worsening shortness of breath, lower extremity edema. Imaging study obtained with evidence of pulmonary congestion and cardiomegaly. Positive urinary tract infection, 2 g Rocephin received in ED. urine culture growing gram-negative rods. Responding to diuresis. Overall doing better. Stable discharge back to her nursing facility for continued treatment of UTI and volume overload. Stable on room air. Problems addressed as follows: Acute UTI secondary to gram-negative rods.: - UA nitrate positive, urine blood 2+, urine leukocyte esterase 2+, 1+ bacteria. Urine culture growing gram-negative rods. Final speciation and sensitivity pending. Treated with ceftriaxone during admission. Will transition to Levaquin to complete 4 more days of antibiotics for broad coverage for gram-negative UTI. White count is normalized at 8.0. Kidney function stable with BUN 23, creatinine 1.2. Appears to be patient's baseline. Acute on chronic HFpEF exacerbation Hypertrophic cardiomyopathy - Echo from April 06, 2023 shows grade 3 diastolic dysfunction. BNP elevated at 3800 on admission. Responded well to diuresis with Lasix 40 mg twice daily. -4.4 L since admission. Plan to continue her Eliquis 5 mg twice daily, Camzyos 5 mg, metoprolol succinate 50 mg daily. Given her lower edema and overload, increase Lasix to 40 mg twice daily. Will need to repeat BMP in 1 week to monitor kidney function and electrolytes. COPD: Currently without complication, resume home inhaler, fluticasone propion-salmeterol 250-50 mcg, 1 inhalation twice daily. Albuterol sulfate 19 mcg as needed. Hypertension/history cardiac pacemaker/presence of prosthetic heart valve: - Normotensive, without complication, resume antihypertensive medication metoprolol succinate ER 50 mg daily, chronic anticoagulation with Eliquis 5 mg twice daily Depression: Continue Wellbutrin 300 mg daily CKD 3 Hypercalcemia - Creatinine remained stable between 1.2 and 1.3. At patient's baseline. Needs repeat labs in 1 week to monitor kidney function. Calcium was mildly elevated, there appears to be some chronicity per chart review. Calcium 11.2 initially. Improved to 10.3. Recommend evaluating and considering further workup if remains elevated on follow-up labs. Would discontinue multivitamin as supplementation may be a factor. Diabetes mellitus type 2: A1c normal at 5.3. Not on any current meds. Glucose is stable during admission. Needs repeat A1c in 3 months. Total time spent on discharge 35 minutes in counseling, documentation, chart review, and direct care with patient. Exam Data for Last 24 hours Vital signs and Labs for Last 24 Hours: Temp Pulse Resp BP Pulse Ox O2 Del Method 98.2 F 66 12 118/75 92 L Room Air 01/18/25 04:00 01/18/25 04:00 01/18/25 04:00 01/18/25 04:00 01/18/25 04:00 01/18/25 06:37 Laboratory Results - last 24 hr 01/16/25 21:45: Urine Color Yellow, Urine Appearance Clear, Urine pH 5.5, Ur Specific Apison 1.010, Urine Protein Negative, Urine Glucose (UA) Negative, Urine Ketones Negative, Urine Blood 2+ A, Urine Nitrate Positive A, Urine Bilirubin Negative, Urine Urobilinogen 0.2, Ur Leukocyte Esterase 2+ A, Urine RBC 3-5, Urine WBC Tntc, Ur Squamous Epith Cells None, Urine Bacteria 1+ 01/17/25 06:40: PT 12.9 H, INR 1.18 H, Sodium 137, Potassium 4.1, Chloride 107, Carbon Dioxide 26, Anion Gap 8.1, BUN 25 H, Creatinine 1.30 H, Estimated Creat Clear 67, Estimated GFR 40 L, Est GFR ( Amer) 49 L, Glucose 118 H, Hemoglobin A1c 5.3, Calcium 11.2 H, Phosphorus 3.0, Magnesium 2.2, Total Bilirubin 1.5 H, AST 42 H, ALT 28, Alkaline Phosphatase 92, Troponin I 0.01, Total Protein 6.7, Albumin 3.7, Globulin 3.0, Albumin/Globulin Ratio 1.2 01/17/25 17:51: Sodium 138, Potassium 3.9, Chloride 103, Carbon Dioxide 26, Anion Gap 12.9, BUN 22 H, Creatinine 1.30 H, Estimated Creat Clear 67, Estimated GFR 40 L, Est GFR ( Amer) 49 L, Glucose 166 H D, Calcium 10.2, Total Bilirubin 1.6 H, AST 39 H, ALT 32, Alkaline Phosphatase 88, Total Protein 6.4, Albumin 3.6, Globulin 2.8, Albumin/Globulin Ratio 1.3 I & O for Last 24 hours: Intake & Output 01/15/25 01/16/25 01/17/25 01/18/25 23:59 23:59 23:59 23:59 Intake Total 1420 / 1620 200 / 200 Output Total 5900 / 5900 100 / 100 Balance -4480 / -4280 100 / 100 Weight 104.961 kg 104.689 kg 101.741 kg Microbiology Reports for the Last 24 Hours: Microbiology 01/16/25 21:45 Urine,Clean Catch Urine Culture - Preliminary Gram Negative Rods Constitutional Constitutional: no acute distress, obese, chronically ill appearing and cooperative *Routine HEENT Exam Head: Present normocephalic Eye: Present EOMI and PERRL ENT: Present mucous membranes moist *Routine Neck Exam Neck: Present supple; Absent lymphadenopathy *Routine Respiratory Exam Respiratory: Present prolonged expiratory phase and crackles (Faint bases but improved); Absent rhonchi or wheezes *Routine Cardiovascular Exam Cardiovascular: Present RRR *Routine Abdominal Exam Abdominal: Present soft and normoactive bowel sounds; Absent tenderness *Routine Rectal Exam Patient deferred: visual exam *Routine Exam Patient deferred: external exam *Routine Extremities Exam Extremities: Present edema (2+ lower extremities, improving); Absent cyanosis or clubbing *Routine Skin Exam Skin: Present warm; Absent rash *Routine Neurological Exam Neurological: Present alert and oriented X3; Absent altered mental status Comments: Baseline mentation Routine Psychiatric Exam Psychiatric: Present depressed Results Data Completed and Pending Labs on day of discharge: Labs from last 24 hours 01/17/25 01/17/25 01/16/25 17:51 06:40 21:45 PT 12.9 H INR 1.18 H Sodium 138 137 Potassium 3.9 4.1 Chloride 103 107 Carbon Dioxide 26 26 Anion Gap 12.9 8.1 BUN 22 H 25 H Creatinine 1.30 H 1.30 H Estimated Creat Clear 67 67 Estimated GFR 40 L 40 L Est GFR ( Amer) 49 L 49 L Glucose 166 H D 118 H Hemoglobin A1c 5.3 Calcium 10.2 11.2 H Phosphorus 3.0 Magnesium 2.2 Total Bilirubin 1.6 H 1.5 H AST 39 H 42 H ALT 32 28 Alkaline Phosphatase 88 92 Troponin I 0.01 Total Protein 6.4 6.7 Albumin 3.6 3.7 Globulin 2.8 3.0 Albumin/Globulin Ratio 1.3 1.2 Urine Color Yellow Urine Appearance Clear Urine pH 5.5 Ur Specific Apison 1.010 Urine Protein Negative Urine Glucose (UA) Negative Urine Ketones Negative Urine Blood 2+ A Urine Nitrate Positive A Urine Bilirubin Negative Urine Urobilinogen 0.2 Ur Leukocyte Esterase 2+ A Urine RBC 3-5 Urine WBC Tntc Ur Squamous Epith Cells None Urine Bacteria 1+ Preliminary micro results at discharge 01/16/25 21:45 Urine Culture - Preliminary Urine,Clean Catch Gram Negative Rods DS: Diagnosis Discharge Diagnosis (1) Acute UTI: Status: Acute Code(s): N39.0 - Urinary tract infection, site not specified Problem details: Secondary to gram-negative rods, present on admission (2) CHF exacerbation: Status: Acute Code(s): I50.9 - Heart failure, unspecified Qualifiers: Heart failure type: unspecified Qualified Code(s): I50.9 - Heart failure, unspecified (3) Advanced COPD: Status: Acute Code(s): J44.9 - Chronic obstructive pulmonary disease, unspecified (4) History of cardiac pacemaker: Status: Acute Code(s): Z95.0 - Presence of cardiac pacemaker (5) Essential (primary) hypertension: Status: Acute Code(s): I10 - Essential (primary) hypertension (6) Presence of prosthetic heart valve: Status: Acute Code(s): Z95.2 - Presence of prosthetic heart valve (7) CKD (chronic kidney disease) stage 3, GFR 30-59 ml/min: Status: Acute Code(s): N18.30 - Chronic kidney disease, stage 3 unspecified (8) Diabetes mellitus: Status: Acute Code(s): E11.9 - Type 2 diabetes mellitus without complications Qualifiers: Diabetes mellitus complication status: with other specified complication Diabetes mellitus prison insulin use: without prison use Diabetes mellitus type: type 2 Qualified Code(s): E11.69 - Type 2 diabetes mellitus with other specified complication Meds Home Medications and Allergies Home Medications ?Medication ?Instructions ?Recorded ?Confirmed ?Type multivitamin 1 tab PO DAILY 10/18/21 01/17/25 History apixaban 5 mg tablet (Eliquis) 5 mg PO BID 90 days #180 tabs 12/13/23 01/17/25 Rx bupropion HCl 300 mg 24 hr tablet, 300 mg PO DAILY 90 days #90 tabs 12/13/23 01/17/25 Rx extended release fluticasone 250 mcg-salmeterol 50 1 inh inhalation BID #60 ea 01/28/24 01/17/25 Rx mcg/dose blistr powdr for inhalation acetaminophen 500 mg tablet 1,000 mg PO Q6HP PRN Pain 11/04/24 01/17/25 History albuterol sulfate 90 mcg/actuation 2 puff inhalation Q4-6H PRN 11/04/24 01/17/25 Rx aerosol inhaler (Ventolin HFA) shortness of breath or wheezing #8.5 grams melatonin 3 mg capsule 3 mg PO HS 11/04/24 01/17/25 History metoprolol succinate 50 mg 50 mg PO DAILY 11/04/24 01/17/25 History tablet,extended release 24 hr fluconazole 150 mg tablet 150 mg PO WEEKLY 12/30/24 01/17/25 History potassium chloride 10 mEq 10 meq PO DAILY 12/30/24 01/17/25 History capsule,extended release mavacamten 5 mg capsule (Camzyos) 5 mg PO BID 01/16/25 01/17/25 History dextromethorphan polistirex 30 10 ml PO Q12HP PRN Cough 01/17/25 01/17/25 History mg/5 mL oral susp ext.release 12hr (Delsym 12 hour) furosemide 40 mg tablet (Lasix) 40 mg PO BIDL #60 tabs 01/18/25 Rx levofloxacin 750 mg tablet 750 mg PO Q24H 3 days #3 tabs 01/18/25 Rx New Prescriptions to Start Prescriptions: furosemide [Lasix] Flaquito Hirsch levofloxacin Flaquito Hirsch Allergies Allergy/AdvReac Type Severity Reaction Status Date / Time Sulfa (Sulfonamide Allergy Unknown Verified 11/04/24 15:58 Antibiotics) allergy reaction Discharge Plan Disposition Patient Disposition: er Intermediate Care Fac Condition: Good Discharge Order Discharge Orders: Discharge Order (Routine); Ordered 01/18/25 Ordered By: Flaquito Hirsch Follow up Plan Prescriptions/Medication Reconciliation: New levofloxacin 750 mg Tablet 750 mg PO Q24H 3 Days Qty: 3 0RF Rx Instructions: First dose due morning of 01/19 furosemide [Lasix] 40 mg tablet 40 mg PO BIDL Qty: 60 0RF Continued multivitamin Tablet 1 tab PO DAILY bupropion HCl 300 mg tablet extended release 24 hr 300 mg PO DAILY 90 Days Qty: 90 2RF Eliquis 5 mg tablet 5 mg PO BID 90 Days Qty: 180 2RF metoprolol succinate 50 mg tablet extended release 24 hr 50 mg PO DAILY Patient Comments: TAKE 1 TABLET DAILY acetaminophen 500 mg tablet 1,000 mg PO Q6HP PRN (Reason: Pain) melatonin 3 mg capsule 3 mg PO HS albuterol sulfate [Ventolin HFA] 90 mcg/actuation HFA aerosol inhaler 2 puff inhalation Q4-6H PRN (Reason: shortness of breath or wheezing) Qty: 8.5 11RF fluconazole 150 mg tablet 150 mg PO WEEKLY potassium chloride 10 mEq capsule, extended release 10 meq PO DAILY fluticasone propion-salmeterol 250-50 mcg/dose blister with device 1 inh inhalation BID Qty: 60 3RF Camzyos 5 mg capsule 5 mg PO BID dextromethorphan polistirex [Delsym 12 hour] 30 mg/5 mL Suspension,Extended Rel 12 Hr 10 ml PO Q12HP PRN (Reason: Cough) Discontinued furosemide [Lasix] 20 mg tablet 20 mg PO DAILY Problem Reconciliation Problems Reviewed?: Yes Patient Discharge Instructions ACTIVITY: Continue current activity DIET: continue same diet Patient Instructions: DI for Urinary Tract Infection (UTI), DI for Heart Failure Exacerbations, Stop Light Heart Failure Print Language: Montenegrin Providers Primary Care Provider: Fred Robbins Admit Provider: Flaquito Hirsch Attending Provider: Flaquito Hirsch
[2025-01-18 07:25] LABS: Alanine Aminotransferase 30 U/L (12-78); Albumin Level 3.7 g/dl (3.5-5.0); Albumin/Globulin Ratio 1.2 (1.1-1.8); Alkaline Phosphatase 92 U/L (38-126); Aspartate Amino Transferase 32 U/L (14-36); Bilirubin,Total 1.2 mg/dl (0.2-1.3); Blood Urea Nitrogen 23 mg/dl (7-17); Calcium 10.3 mg/dl (8.4-10.2); Carbon Dioxide 24 mmol/L (22.0-30.0); Creatinine Clearance Estimated 70 mL/min (50-200); Creatinine,Serum 1.20 mg/dl (0.52-1.04); Estimated Glomerular Filt Rate 44 ml/min (>60); GFR (African American) 54 ML/MIN (>60); Globulin 3.0 g/dL (1.3-3.2); Glucose 139 mg/dl (74-100); Magnesium 2.1 mg/dl (1.6-2.3); Total Protein,Serum 6.7 g/dl (6.3-8.2)
[2025-01-18 07:53] LABS: Anion Gap 9.8 mEq/L (5-15); Chloride 103 mmol/L (98-107); Potassium 3.8 mmoL/L (3.5-5.1); Sodium 133 mmol/L (136-145)
[2025-01-18 08:00] VITALS: BP 115/67; PULSE 64; RESP 18; TEMP 36.6; O2SAT 90
--- NOTE | 2025-01-18 08:20 | PC.NURSE ---
urine culture forwarded to hospitalist.
--- NOTE | 2025-01-18 08:38 | HMH.PHAAMS2 ---
- Antimicrobial Stewardship Review culture & sensitivity review Stewardship interventions: culture & sensitivity review (CURRENTLY ON ROCEPHIN FOR UTI, GRAM (-) IN URINE CX. AFEBRILE NOW AND WBC WNL.)
[2025-01-18] MEDS: APIXABAN 5MG TABLET 5 MG PO (09:12)
[2025-01-18] MEDS: METOPROLOL SUCCINATE XL 50MG TABLET 50 MG PO (09:12)
[2025-01-18] MEDS: FUROSEMIDE 40MG/4ML VIAL 40 MG IV (09:12)
[2025-01-18 12:00] VITALS: BP 101/65; PULSE 63; RESP 16; TEMP 36.6; O2SAT 93
== END 2025-01-18 14:46 ==
LOC: ER 22:18 → 2ND 22:22
PROVIDERS: Nurse Practitioner Acute Care; Admitting Provider Internal Medicine Adolescent Medicine; Emergency Provider Student in an Organized Health Care Education/Training Program; PCP Family Medicine; Visit Provider Internal Medicine Adolescent Medicine
DX: N39.0 Urinary tract infection, site not specified (principal); I13.0 Hypertensive heart and chronic kidney disease with heart failure and stage 1 through stage 4 chronic kidney disease, or unspecified chronic kidney disease; I50.9 Heart failure, unspecified; J44.9 Chronic obstructive pulmonary disease, unspecified; Z95.0 Presence of cardiac pacemaker; Z95.2 Presence of prosthetic heart valve; N18.30 Chronic kidney disease, stage 3 unspecified; E11.69 Type 2 diabetes mellitus with other specified complication; I25.10 Atherosclerotic heart disease of native coronary artery without angina pectoris; F32.A Depression, unspecified; Z90.710 Acquired absence of both cervix and uterus; Z95.4 Presence of other heart-valve replacement; Z90.49 Acquired absence of other specified parts of digestive tract; Z82.49 Family history of ischemic heart disease and other diseases of the circulatory system; Z83.3 Family history of diabetes mellitus; I48.0 Paroxysmal atrial fibrillation; Z87.891 Personal history of nicotine dependence; Z56.0 Unemployment, unspecified; Z88.2 Allergy status to sulfonamides; Z79.899 Other long term (current) drug therapy
CPT/HCPCS: 36415; 71045; 71275; 80053; 81001; 83036; 83735; 83880; 84100; 84484; 85025; 85610; 87086; 87088; 87186; 87631; 93005; 94640; 99285; G0378; J0630; J0696; J1938; J2405; Q9967

== ENCOUNTER 2025-01-26 09:11 | Outpatient (CLI) | payer MEDICARE, BC, MEDICAID, SELFPAY ==
[2025-01-26 09:53] LABS: Anion Gap 10.8 mEq/L (5-15); Blood Urea Nitrogen 24 mg/dl (7-17); Calcium 11.2 mg/dl (8.4-10.2); Carbon Dioxide 25 mmol/L (22.0-30.0); Chloride 102 mmol/L (98-107); Creatinine,Serum 1.20 mg/dl (0.52-1.04); Estimated Glomerular Filt Rate 44 ml/min (>60); GFR (African American) 54 ML/MIN (>60); Glucose 100 mg/dl (74-100); Potassium 3.8 mmoL/L (3.5-5.1); Sodium 134 mmol/L (136-145)
== END 2025-01-26 23:59 | disposition home or self-care (01) ==
LOC: LAB.DROPOF 09:11
PROVIDERS: PCP Family Medicine; Visit Provider Family Medicine
DX: R60.9 Edema, unspecified (principal)
CPT/HCPCS: 36415; 80048

== ENCOUNTER 2025-01-28 11:14 | Outpatient (CLI) | payer MEDICARE, BC, MEDICAID, SELFPAY ==
[2025-01-28 11:59] LABS: Alanine Aminotransferase 18 U/L (12-78); Albumin Level 3.8 g/dl (3.5-5.0); Albumin/Globulin Ratio 1.3 (1.1-1.8); Alkaline Phosphatase 84 U/L (38-126); Anion Gap 17.1 mEq/L (5-15); Aspartate Amino Transferase 28 U/L (14-36); Bilirubin,Total 1.0 mg/dl (0.2-1.3); Blood Urea Nitrogen 31 mg/dl (7-17); Calcium 11.1 mg/dl (8.4-10.2); Carbon Dioxide 25 mmol/L (22.0-30.0); Chloride 104 mmol/L (98-107); Creatinine,Serum 1.40 mg/dl (0.52-1.04); Estimated Glomerular Filt Rate 37 ml/min (>60); GFR (African American) 45 ML/MIN (>60); Globulin 2.9 g/dL (1.3-3.2); Glucose 128 mg/dl (74-100); Potassium 4.1 mmoL/L (3.5-5.1); Sodium 142 mmol/L (136-145); Total Protein,Serum 6.7 g/dl (6.3-8.2)
== END 2025-01-28 23:59 | disposition home or self-care (01) ==
LOC: LAB.DROPOF 11:14
PROVIDERS: PCP Family Medicine; Visit Provider Family Medicine
DX: E83.52 Hypercalcemia (principal)
CPT/HCPCS: 36415; 80053; 82397; 83970

== ENCOUNTER 2025-02-02 09:28 | Outpatient (CLI) | payer MEDICARE, BC, MEDICAID, SELFPAY ==
--- OUTSIDE RECORDS SUMMARY | 2025-01-01 14:30 | XMS_ITS | Encounter Summary ---
[facility] Address [address] [place] [address] Care Team Providers Care Wire Coater Name Role Phone Fred Robbins MD Primary Care Provider +1- [phone] Reason for Visit * Diagnostic Imaging (Routine) - Closed Specialty Diagnoses / Procedures Referred By Contac t Referred To Contact Diagnoses Hypertrophic obstructive cardiomyopathy (HOCM) Procedures Adult Transthoracic Echo Complete W/ Cont if Necessary Per Protocol [place] ECHO TTHRC R-T 2D W/WOM-MODE COMPL SPEC&COLR D MN ECHO TRANSTHORC R-T 2D W/WO M-MODE REC F-UP/LMTD Kajal Hendrix MD [address] [place] [address] Phone: tel: fax: [facility] [address] [place] [address] Phone: tel: fax: Referral ID Status Reason Start Date Expiration Date Visits Re quested Visits Authorized [id number] Closed 01/01/2025 04/02/2026 1 1 Encounter Details Date Type Department Care Team (Latest Contact Info) Description 01/01/2025 2:30 PM EST Ancillary Procedure [facility] [address] [place] [address] [place] [address] Hypertrophic obstructive cardiomyopathy (HOCM) [...] 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 Not on file [...] Description 02/17/2025 12:30 PM EST Ancillary Procedure [facility] [place] [address] 02/17/2025 1:30 PM EST Office Visit [facility] [address] [place] [address] [place] [address] Shannan Adair APRN [address] [place] [address] documented as of this encounter [...] (HOCM) documented in this encounter Care Teams Wire Coater Relationship Specialty Start Date End Date Fred Robbins MD [address] [place] [address] PCP - General Family Medicine 11/10/24 documented as of this encounter
--- OUTSIDE RECORDS SUMMARY | 2025-01-01 15:15 | XMS_ITS | Encounter Summary ---
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 Report not done by the time patient was seen. - Discussed with patient and family today that Dr. Hendrix's nurse Christina will have to put gradient numbers into [employer] system and will be in contact with [...] starting patient on Camzyos. [place] [facility] and had to get approval to see [...] with moderate MR, MS RSVP 55 Electrical: [id number] SCORE /RISK: 4 /6.7% Pericardium: Normal VASCULAR [...] WITH JAME; Surgeon: Jose Beltran MD; Location: [facility] OR; Service: CARDIAC CATHETERIZATION N/A 03/31/2016 Procedure: [...] options were offered after discussion;: pt in [place] [facility] [place] Physical Exam Constitutional: Appearance: Normal appearance. She [...] will have to put gradient numbers into [employer] system and will be in contact with [...] file. Shannan Adair APRN Cardiology and Sleep [facility] 01/01/2025 Please note that this explicitly excludes time spent on other separate billable services such as performing procedures or test interpretation, when applicable. documented in this encounter Plan of Treatment Upcoming Encounters Date Type Department Care Team (Late st Contact Info) Description 02/17/2025 12:30 PM EST Ancillary Procedure [facility] [place] [address] 02/17/2025 1:30 PM EST Office Visit [facility] [address] [place] [address] [place] [address] Shannan Adair APRN [address] [place] [address] documented as of this encounter Visit Diagnoses Diagnosis Hypertrophic obstructive cardiomyopathy (HOCM)- Primary Nonrheumatic aortic valve stenosis Atrial fibrillation, chronic Pacemaker Cardiac pacemaker in situ Primary hypertension Unspecified essential hypertension documented in this encounter Care Teams Medical Office Coordinator Relationship Specialty Start Date End Date Fred Robbins MD [facility] [address] [address] PCP - General Family Medicine 11/10/24 documented as of this encounter
--- OUTSIDE RECORDS SUMMARY | 2025-01-21 14:15 | XMS_ITS | Encounter Summary ---
Author Organization [facility] Address [address] [place] [address] Care Team Providers Care Payroll Consultant Name Role Phone Fred Robbins MD Primary Care Provider [phone] Reason for Visit * Reason Comments Shortness of Breath Pt states she is her e today for SOA and swelling. She was recently admitted to [facility]. Swelling had improved when she left the hosp but today is much worse. Encounter Details Date Type Department Care Team (Latest Contact Info) Description 01/21/2025 2:15 PM EST Office Visit [facility] [address] [place] [address] Kajal Hendrix MD [address] [place] [address] Other hypertrophic cardiomyopathy (Primary Dx); Nonrheumatic aortic valve stenosis; Primary hypertension; Swelling of lower extremity Social History Tobacco Use Types Packs/Day Years Used Date Smoking Tobacco: Former Cigarettes 1 45 0 04/25/1971 - 04/24/2016 Passive Smoke Exposure: Past Smokeless Tobacco: Never Tobacco Cessation:Counseling Given: Yes Alcohol Use Standard Drinks/Week Comments No 0 (1 standard drink = 0.6 oz pur e alcohol) Comments No Sex and Gender Information Value Date Recorded Sex Assigned at Not on file Legal Sex Female 10:03 AM EST Gender Identity Not on file Sexual Orientation Not on file 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 Not on file Not on file Not on williams e documented as of this encounter Last Filed Vital Signs Vital Sign Reading Time Taken Comments Blood Pressure 118/80 01/21/2025 2:16 PM EST Pulse 63 01/21/2025 2:16 PM EST Temperature - - Respiratory Rate - - Oxygen Saturation 95% 01/21/2025 2:16 PM EST Inhaled Oxygen Concentration - - Weight 100 kg (221 lb) 01/21/2025 2:16 PM EST Height 167.6 cm (5' 6 ) 01/21/2025 2:16 PM EST Body Mass Index 35.67 01/21/2025 2:16 PM EST documented in this encounter Progress Notes * Kajal Hendrix MD - 01/21/2025 2:15 PM EST Images from the original note were not included. [facility] Provider Note Date: 01/21/2025 Name: Cuong Quintero : 1955 PCP: Fred Robbins MD Chief Complaint Patient presents with Shortness of Breath Pt states she is here today for SOA and swelling. She was recently admitted to [facility]. Swelling had improved when she left the hosp but today is much worse. Subjective History of Present Illness Cuong Quintero is a 69 y.o. female with HOCM, SAVR who presents today for follow up swelling and shortness of air Pacemaker interrogation today Shortness of air and swelling has worsened since starting Camzyos. Debbie (POA) with today and has relayed this information. Relays that before starting Camzyos was getting short ness of breath with exertion however after starting it has increased to where she will be short of breath just standing up.Also reports that swelling was previously there but states that after Camzyos is so bad that can not get shoes on. Debbie is inquiring as to if this is needed because it was supposed to be helping her and it seems to have made her worse. Has been admitted to [facility] for swelling. Records are in EPIC Reports that has been having palpitations. Reports nausea today. States that has UTI 01/21/2025 Updated with issues addressed CARDIAC 1. Normal coronaries, 2017 2. HOCM Echo 03/19/2024: LVEF 70%, severe LVH, BRITTNEY, LVOT gradient 85 -started camzyos 12/2024 but caused worsening fluid and SOA., stopped 01/2025 3. Severe aortic stenosis s/p SAVR 2016 4. BRITTNEY with moderate MR, MS RSVP 55 5. Dementia, lives at [facility] CARDIAC RISK FACTORS Hypertension Diabetes Dyslipidemia Tobacco Use: Former Smoker and PPY: 45 Breast cancer Arthritis Dyspnea Depression Allergies Allergen Reactions Other Nausea And Vomiting Darvocet Sulfa Antibiotics Rash Current Outpatient Medications: acetaminophen (TYLENOL) 500 MG tablet, Take 2 tablets by mouth Every 6 (Six) Hours As Needed for Mild Pain., Disp: , Rfl: albuterol sulfate HFA 108 (90 Base) MCG/ACT inhaler, As Needed., Disp: , Rfl: apixaban (ELIQUIS) 5 MG tablet tablet, Take 1 tablet by mouth 2 (Two) Times a Day., Disp: 60 tablet, Rfl: 6 buPROPion XL (WELLBUTRIN XL) 300 MG 24 hr tablet, Take 1 tablet by mouth Daily., Disp: , Rfl: dextromethorphan polistirex ER (DELSYM) 30 MG/5ML Suspension Extended Release oral suspension, Take10 mL by mouth Every 12 (Twelve) Hours., Disp: , Rfl: Fluticasone-Salmeterol (ADVAIR/WIXELA) 250-50 MCG/ACT DISKUS, Inhale 2 (Two) Times a Day., Disp: , Rfl: levoFLOXacin (LEVAQUIN) 750 MG tablet, , Disp: , Rfl: Melatonin 3 MG capsule, Take 1 capsule by mouth Every Night., Disp: , Rfl: metoprolol succinate XL (TOPROL-XL) 50 MG 24 hr tablet, Take 1 tablet by mouth Daily., Disp: 30 tablet, Rfl: 0 multivitamin with minerals (MULTIVITAMIN ADULTS PO), Take 1 tablet by mouth Daily., Disp: , Rfl: potassium chloride (KLOR-CON M20) 20 MEQ CR tablet, Take 1 tablet by mouth 2 (Two) Times a Day., Disp: 60 tablet, Rfl: 11 bumetanide (BUMEX) 2 MG tablet, Take 1 tablet by mouth 2 (Two) Times a Day., Disp: 60 tablet, Rfl: 11 No current facility-administered medications for this visit. [...] WITH JAME; Surgeon: Jose Beltran MD; Location: [facility]; Service: CARDIAC CATHETERIZATION N/A 03/31/2016 Procedure: [...] date: 04/25/1971 Quit date: 04/24/2016 Years since quittin.7 Passive exposure: Past Smokeless tobacco: Never Vaping Use Vaping status: Never Used Substance and Sexual Activity Alcohol use: No Drug use: No Sexual activity: Defer Objective Vital Signs: BP 118/80 (BP Location: Right arm, Patient Position: Sitting, Cuff Size: Adult) Pulse 63 Ht 167.6 cm (66 ) Wt 100 kg (221 lb) SpO2 95% BMI 35.67 kg/m?? Estimated body mass index is 35.67 kg/m?? as calculated from the following: Height as of this encounter: 167.6 cm (66 ). Weight as of this encounter: 100 kg (221 lb). Physical Exam Constitutional: Appearance: Normal appearance. She is well-developed. HENT: Head: Normocephalic and atraumatic. Eyes: General: No scleral icterus. Pupils: Pupils are equal, round, and reactive to light. Cardiovascular: Rate and Rhythm: Normal rate and regular rhythm. Heart sounds: Normal heart sounds. No murmur heard. Pulmonary: Breath sounds: Normal breath sounds. No wheezing or rhonchi. Musculoskeletal: Right lower leg: No edema. Left lower leg: No edema. Skin: Capillary Refill: Capillary refill takes less than 2 seconds. Coloration: Skin is not cyanotic. Nails: There is no clubbing. Neurological: Mental Status: She is alert and oriented to person, place, and time. Motor: No weakness. Gait: Gait (rollater) normal. Psychiatric: Mood and Affect: Mood normal. Behavior: Behavior is cooperative. Thought Content: Thought content normal. Assessment and Plan ASSESSMENTS AND ORDERS Diagnoses and all orders for this visit: 1. Other hypertrophic cardiomyopathy (Primary) - bumetanide (BUMEX) 2 MG tablet; Take 1 tablet by mouth 2 (Two) Times a Day. Dispense: 60 tablet; Refill: 11 - potassium chloride (KLOR-CON M20) 20 MEQ CR tablet; Take 1 tablet by mouth 2 (Two) Times a Day. Dispense: 60 tablet; Refill: 11 2. Nonrheumatic aortic valve stenosis - bumetanide (BUMEX) 2 MG tablet; Take 1 tablet by mouth 2 (Two) Times a Day. Dispense: 60 tablet; Refill: 11 - potassium chloride (KLOR-CON M20) 20 MEQ CR tablet; Take 1 tablet by mouth 2 (Two) Times a Day. Dispense: 60 tablet; Refill: 11 3. Primary hypertension 4. Swelling of lower extremity PLAN -Camzyos not helping much. And patient feels like it may be making her worse. I am not sure if the side effects are from Camzyos but it is a dangerous medication to be continuing when we are not surethat it is working. Will go ahead and stop it. She and her power of litigation attorney are in agreement with this today. -Recently in the hospital for worsening swelling. Improved with IV Lasix. Her care home cannot do IV Lasix today. She feels like she is gone worse being in the care home on 40 mg twice daily Lasix. -Change Lasix to Bumex 2 mg twice daily and increase potassium to 20 mEq twice daily. Follow-up 1 week and have care home do labs prior to appointment to make sure potassium and renal function are helping. -PM checked in office recently. No need to check today. Follow Up Return in about 1 week (around 01/28/2025) for follow up as previously scheduled. Elba Hendrix MD Cardiology and Sleep [facility] 01/21/2025 Please note that this explicitly excludes time spent on other separate billable services such as performing procedures or test interpretation, when applicable. This note was created using dictation software which occasionally transcribes nonsensical phrases. Please contact the provider if any clarification is needed. documented in this encounter Plan of Treatment Upcoming Encounters Date Type Department Care Team (Late st Contact Info) Description 02/17/2025 12:30 PM EST Ancillary Procedure [facility] [place] [address] 02/17/2025 1:30 PM EST Office Visit [facility] C[facility] [address] [place] [address] [place] [phone] Shannan Adair, [facility] [address] [place] [address] documented as of this encounter Visit Diagnoses Diagnosis Other hypertrophic cardiomyopathy- Primary Nonrheumatic aortic valve stenosis Primary hypertension Unspecified essential hypertension Swelling of lower extremity documented in this encounter Care Teams Payroll Consultant Relationship Specialty Start Date End Date Fred Robbins MD [facility] [address] [address] PCP - General Family Medicine 11/10/24 documented as of this encounter
--- OUTSIDE RECORDS SUMMARY | 2025-02-02 09:31 | XMS_ITS | Clinical Summary ---
Author Organization [facility] Address [address] [place] [address] Care Team Providers Care Molecular Genetic Pathologist Name Role Phone Fred Robbins MD Primary Care Provider +1- [phone] Allergies Active Allergy Reactions Criticality Noted Date [...] succinate XL (TOPROL-XL) 50 MG 24 hr tabletIndications: Primary hypertension,Parox ysmal atrial fibrillation Take 1 tablet by mouth Daily. 30 tablet 5 Active levoFLOXacin (LEVAQUIN) 750 MG tablet 5 Active multivitamin with minerals (MULTIVITAMIN ADULTS PO) Take 1 tablet by mouth Daily. Active Fluticasone-Salmet bernadette (ADVAIR/WIXELA) 250-50 MCG/ACT DISKUS Inhale 2 (Two) Times a Day. Active acetaminophen (TYLENOL) 500 MG tablet Take 2 tablets by mouth Every 6 (Six) Hours As Needed for Mild Pain. Active Melatonin 3 MG capsule Take 1 capsule by mouth Every Night. Active dextromethorphan polistirex ER (DELSYM) 30 MG/5ML Suspension Extended Release oral suspension Take 10 mL by mouth Every 12 (Twelve) Hours. Active bumetanide (BUMEX) 2 MG tabletIndications: Other hypertrophic cardiomyopathy,Non rheumatic aortic valve stenosis Take 1 tablet by mouth 2 (Two) Times a Day. 60 tablet 11 5 Active potassium chloride (KLOR-CON M20) 20 MEQ CR tabletIndications: Other hypertrophic cardiomyopathy,Non rheumatic aortic valve stenosis Take 1 tablet by mouth 2 (Two) Times a Day. 60 tablet 11 5 Active Mavacamten (Camzyos) 5 MG capsuleIndications :Hypertrophic obstructive cardiomyopathy (HOCM) Take 1 capsule by mouth Daily. 5 01/22/20 25 Discontin ued(Stop Taking at Discharge ) potassium chloride (KLOR-CON M10) 10 MEQ CR tablet Take 1 tablet by mouth Daily. 5 01/22/20 25 Discontin ued(Reord er) furosemide (LASIX) 20 MG tablet Take 1 tablet by mouth Daily. 5 01/22/20 25 Discontin ued(Dose adjustmen t) ondansetron (ZOFRAN) 4 MG tablet 5 01/22/20 25 Discontin ued(*Ther apy completed ) furosemide (LASIX) 40 MG tablet 5 01/22/20 25 Discontin ued(Stop Taking at Discharge ) Active Problems Problem Noted Date Diagnosed Date Hypertrophic obstructive cardiomyopathy (HOCM) 1 03/02/2024 Assessment & Plan (01/01/2025 4:04 PM EST): {CHF (Optional):85263} Assessment & Plan (12/31/2024 1:13 PM EST): {CHF (Optional):90831} Paroxysmal atrial fibrillation 01/06/2022 Overview (01/06/2022): Echocardiogram, [...] Plan (01/01/2025 4:04 PM EST): {Hypertension is (optional):[id number]} HOCM - Had ECHO done today. Report not done by the time patient was seen. - Discussed with patient and family today that Dr. Hendrix's nurse Christina will have to put gradient numbers into [employer] system and will be in contact with [...] Encounters Date Type Department Care Team Description 01/21/2025 2:15 PM EST Office Visit [facility] [address] [place] [address] [place] [address] Kajal Hendrix MD Other hypertrophic cardiomyopathy (Primary Dx); Nonrheumatic aortic valve stenosis; Primary hypertension; Swelling of lower extremity 01/21/[address] [place] [address] Kajal Hendrix MD 01/21/2025 Travel 01/19/[address] [place] [address] Shannan Hurtado, ALEXY 01/01/2025 3:15 PM EST Office Visit [place] [address] [address] [place] [address] Shannan Hurtado, ROLLER SHOP SUPERVISOR Hypertrophic obstructive cardiomyopathy (HOCM) (Primary Dx); Nonrheumatic aortic valve stenosis; Atrial fibrillation, chronic; Pacemaker; Primary hypertension 01/01/2025 2:30 PM EST Ancillary Procedure [place] [address] [address] [place] [address] Hypertrophic obstructive cardiomyopathy (HOCM) 12/31/2024 Travel 12/29/2024 Telephone [facility] CL[facility]IC [place] [address] Kajal Hendrix MD 12/02/2024 [facility] [address] [place] [address] [place] [address] Kajal Hendrix MD UPDATE ON PA FOR PT. 11/19/2024 10:30 AM EDT Ancillary Procedure [facility] CLINIC [place] [address] Hypertrophic obstructive cardiomyopathy (HOCM) 11/19/2024 Travel 11/12/2024 [facility] [address] [place] [address] Kajal Hendrix MD 11/11/2024 11:30 AM EDT Office Visit [facility] CLINIC [place] [address] Kajal Hendrix MD Hypertrophic obstructive cardiomyopathy (HOCM) (Primary Dx); Nonrheumatic aortic valve stenosis; Atrial fibrillation, chronic; Pacemaker 11/11/2024 Telephone [facility] CLINIC [place] [address] Kajal Hendrix MD 11/11/2024 Travel 11/10/2024 Telephone [facility] CL[facility]IC [place] [address] Shannan Hurtado, ALEXY HURTADO-MEDICATION QUESTION from Last 3 Months Family History Medical [...] 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 file Not on williams e Last Filed Vital Signs Vital Sign Reading Time Taken Comments Blood Pressure 118/80 01/21/2025 2:16 PM EST Pulse 63 01/21/2025 2:16 PM EST Temperature 36.3 C (97.4 F) 05/22/2016 12:17 PM EDT Respiratory Rate 18 04/30/2016 6:00 AM EDT Oxygen Saturation 95% 01/21/2025 2:16 PM EST Inhaled Oxygen Concentration - - Weight 100 kg (221 lb) 01/21/2025 2:16 PM EST Height 167.6 cm (5' 6 ) 01/21/2025 2:16 PM EST Body Mass Index 35.67 01/21/2025 2:16 PM EST Plan of Treatment Upcoming Encounters Date Type Department Care Team (Late st Contact Info) Description 02/17/2025 12:30 PM EST Ancillary Procedure [facility] [address] [place] [address] 02/17/2025 1:30 PM EST Office Visit [facility] [address] [place] [address] [place] [address] Shannan Hurtado APRN [address] [place] [address] Health Maintenance Due Date Last [...] 05/20/2020, 04/22/2020 Medical Devices Implanted Type Area Resin Remover Device Identifier Shelf Expiration Date Model / Serial / Lot Vlv Pericard Perimount Magna Ease 21 - [id number] Implanted:Qty: 1 on 04/24/2016 by Jose Beltran MD at [facility] Implant N/A: Aorta ALBARRAN [employer] NURA 11/02/2019 [id number] / / Procedures Procedure Name Priority Date/Time Associated Diagnosis Comments SCANNED - LABS 01/18/2025 SCANNED EKG 01/16/2025 SCANNED - IMAGING 01/16/2025 SCANNED - IMAGING 01/16/2025 ECHO COMPLETE W/ DOPPLER AND COLOR FLOW Routine 01/01/2025 3:30 PM EST Hypertrophic obstructive cardiomyopathy (HOCM) ECHO COMPLETE W/ DOPPLER AND COLOR FLOW Routine 11/19/2024 11:00 AM EDT Hypertrophic obstructive cardiomyopathy (HOCM) HEMOGLOBIN A1C Routine 04/23/2016 2:19 PM EST Nonrheumatic aortic valve stenosis LIPID PANEL STAT 03/31/2016 7:41 AM EST from Last 3 Months or Most Recently Relevant to Health Maintenance Results * LABS SCANNED (01/18/2025) us Kajal Hendrix MD LAB BLOOD ORDERABLES Final R esult * ECG Scan (01/16/2025) us Kajal Hendrix MD ECG ORDERABLES Final Result * IMAGING SCANNED (01/16/2025) Only the most recent of2 resultswithin the time period is included. Anatomical Region Laterality Modality Radiographic [place] ging us Kajal Hendrix MD IMG DIAGNOSTIC IMAGING ORDER CHELSEA Final Result * ECHO COMPLETE W/ DOPPLER AND COLOR [...] The left ventricular wall motion is normal. Kajal Hendrix MD CV ECHO ORDERABLES Final Res ult * Hemoglobin A1c (04/23/2016 2:19 PM EST) Hemoglobin A1C 5.40 4.80 - 5.60 % 04/23/2016 4:13 PM EST [facility] Blood Venipuncture / Unknown 04/23/2016 2:19 PM EST 04/23/2016 3:44 PM EST [facility] - 04/23/2016 4:13 PM EST The [place] [employer] recommends maintenance of Hemoglobin A1C at 7.0% or lower. Goals for Hemoglobin A1C reduction may need to be modified if hypoglycemia is a problem. us Fred UPTON LAB BLOOD ORDERABLES Final R esult [facility]
[address] [place] [address], * Lipid Panel (03/31/2016 7:41 AM EST) Total Cholesterol 187 0 - 200 mg/dL 03/31/2016 8:34 AM EST [facility] Triglycerides 115 0 - 150 mg/dL 03/31/2016 8:34 AM EST [facility] HDL Cholesterol 55 40 - 60 mg/dL 03/31/2016 8:34 AM EST [facility] LDL Cholesterol 97 0 - 130 mg/dL 03/31/2016 8:34 AM EST [facility] Blood Line / Unknown 03/31/2016 7: 41 AM EST 03/31/2016 8:15 AM EST [facility] - 03/31/2016 8:34 AM EST Cholesterol [...] 160-189 mg/dL Very High > 189 mg/dL aRchel Camara APRN LAB BLOOD ORDERABLES Final Result [facility]
[address] [id number], from Last 3 Months or Most Recently Relevant to Health Maintenance Insurance MEDICARE A ONLY MEDICARE A ONLY Advance Directives Documents on File Type Date Recorded Patient Sports Statistician Expl anation POWER OF VACUUM PAN TENDER - SCAN 03/19/2024 1:13 PM POA * Full Code (Latest Code Status on File) Date Activated Date Inactivated Comments 04/24/2016 11:28 AM 04/30/2016 12:05 PM * Full Code Date Activated Date Inactivated Comments 03/31/2016 10:18 AM 03/31/2016 5:40 PM Care Teams Molecular Genetic Pathologist Relationship Specialty Start Date End Date Fred Robbins MD [address] [place] [address] PCP - General Family Medicine 11/10/24
--- OUTSIDE RECORDS SUMMARY | 2025-02-02 09:31 | XMS_ITS | Encounter Summary ---
Author Organization Healthcare Address [address] [place] [address] Care Team Providers Care Marine Service Operator Name Role Phone Pcp, No Primary Care Provider Unavailabl e Encounter Details Date Type Department Care Team (Late st Contact Info) Description 12/02/2024 Telephone [facility] [place] [address] [facility] [place] [address] Chris Galloway MD [address] [place] [address] Social History Tobacco Use Types [...] Caller declined to reschedule. Best contact number: [phone] (home) Optimal time of day to reach caller: ANYTIME Additional comments/information from caller: None Note: Please do not reply to this message. Follow-up communication and further actions as a result of this message need to be communicated with the patient directly, if the patient is not active onMyChart. If the patient is active on MyChart, they will receive notification of the communication/outcome via Survaturet. documented in this encounter Plan of Treatment Not on file documented as of this encounter Visit Diagnoses Not on filedocumented in this encounter Care Teams Marine Service Operator Relationship Specialty Start Date End Date Pcp, [place] [address] [place] [address] PCP - General Family Medicine 07/23/24 documented as of this encounter
--- OUTSIDE RECORDS SUMMARY | 2025-02-02 09:31 | XMS_ITS | Clinical Summary ---
Author Organization [facility] Address [address] [place] [address] Care Team Providers Care Vascular Ultrasound Technologist Name Role Phone Pcp, No Primary Care [...] Type Department Care Team Description 12/02/2024 Telephone [facility] [place] [address] [place] [address] Chris Galloway MD from Last 3 Months [...] Cancer Screening 07/24/1999 [facility]-Breast Cancer Screening 2004 [facility]-RSV Vaccine: 60+ Years o r (1 - Risk 50-74 years 1-dose series) 2004 [facility]-Zoster Vaccines (1 of 2) 2004 QPA-[id number]-92 Vaccine (4 - season) 2024 02/01/2021, 05/20/2020, 04/22/2020 [facility]-Influenza Vaccine (#1) 10/20/202401/11, 01/29/2017 HPV Vaccines (No Doses Required) Completed [facility]-HIB Vaccines Aged Out No longer e [...] this topic Medical Devices Implanted Type Area Clerk Checker Device Identifier Shelf Expiration Date Model / Serial / Lot Tendril Sts Jimenez Lead-09/30/2021 Implanted:2021 (Quantity not on file) Lead Chest Wall [employer] 8TC/46 / / Tendril Sts Lead Jimenez Implanted:2021 (Quantity not on file) Lead Chest Wall [employer] [id number] / / Assurity Mri Jimenez Pacemaker- 022 Implanted:2021 (Quantity not on file) Pacemaker Chest Wall [employer] [id number] / / Description:Entire CIED syst em implanted on 09/30/2021 LEAD MODEL: 2088TC/46 LEAD MODEL: 2088TC/52 Perimount Magna Ease 21 Pericardial Valve-04/24/2016 Implanted:2016 (Quantity not on file) Valve Heart Description:Vlv Pericard Per imount Magna Ease 21 - [id number] Implanted: Qty: 1 on 04/24/2016 by Jose Beltran MD at [facility] Implant N/A: Aorta [employer] NURA 11/02/2019 [id number] [place] [address] [facility] Care Teams Vascular Ultrasound Technologist Relationship Specialty Start Date End Date Pcp, [place] [address] PCP - General Family Medicine 07/23/24
--- OUTSIDE RECORDS SUMMARY | 2025-02-02 09:31 | XMS_ITS | Encounter Summary ---
[facility] Organization [facility] Address [address] [place] [address] Care Team Providers Care Computer System Validation Specialist Name Role Phone Fred Robbins MD Primary Care Provider +1- [phone] Reason for Referral * Diagnostic Imaging (Routine) - Closed Specialty Diagnoses / Procedures Referred By Contac t Referred To Contact Diagnoses Hypertrophic obstructive cardiomyopathy (HOCM) Procedures Adult Transthoracic Echo Complete W/ Cont if Necessary Per Protocol NM ECHO TTHRC R-T 2D W/WOM-MODE COMPL SPEC&COLR D NM ECHO TRANSTHORC R-T 2D W/WO M-MODE REC F-UP/LMTD Kajal Hendrix MD [address] [place] [address] Phone: tel: fax: [facility] [address] [place] [address] Phone: tel: fax: Referral ID Status Reason Start Date Expiration Date Visits Re quested Visits Authorized [id number] Closed 12/05/2024 03/06/2026 1 1 Reason for Visit * Reason Onset Date Comments UPDATE ON PA FOR PT. 12/02/2024 Encounter Details Date Type Department Care Team (Late st Contact Info) Description 12/02/[address] [facility] [address] [place] [address] [place] [address] Kajal Hendrix MD [address] [place] [address] UPDATE ON PA FOR PT. 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 [address] [place] [address] 02/17/2025 1:30 PM EST Office Visit [facility] [address] [place] [address] [place] [address] Shannan Adair APRN [address] [place] [address] Scheduled Orders Name Type Priority Associated Diagnoses Orde r Schedule Adult Transthoracic Echo Complete W/ Cont if Necessary Per Protocol Echocardiography Routine Hypertrophic obstructive cardiomyopathy (HOCM) Expected: 01/02/2025 (Approximate), Expires: 03/07/2026 documented as of this encounter Visit Diagnoses Diagnosis Hypertrophic obstructive cardiomyopathy (HOCM)- Primary documented in this encounter Care Teams Computer System Validation Specialist Relationship Specialty Start Date End Date Fred Robbins MD [address] [place] [address] PCP - General Family Medicine 11/10/24 documented as of this encounter
--- OUTSIDE RECORDS SUMMARY | 2025-02-02 09:31 | XMS_ITS | Encounter Summary ---
[facility] Address [address] [place] [address] Care Team Providers Care Spray Unit Feeder Name Role Phone Fred Robbins MD Primary Care Provider +1- [phone] Reason for Referral * Diagnostic Imaging (Routine) - Closed Specialty Diagnoses / Procedures Referred By Contac t Referred To Contact Diagnoses Hypertrophic obstructive cardiomyopathy (HOCM) Procedures Adult Transthoracic Echo Complete W/ Cont if Necessary Per Protocol SD ECHO TTHRC R-T 2D W/WOM-MODE COMPL SPEC&COLR D SD ECHO TRANSTHORC R-T 2D W/WO M-MODE REC F-UP/LMTD Kajal Hendrix MD [address] [place] [address] Phone: tel: fax: [facility] [address] [place] [address] Phone: tel: fax: Referral ID Status Reason Start Date Expiration Date Visits Re quested Visits Authorized [id number] Closed 11/11/2024 02/10/2026 1 1 Encounter Details Date Type Department Care Team (Late st Contact Info) Description 11/11/2024 Telephone [facility] CL[facility] [place] [address] Kajal Hendrix MD [address] [place] [address] Social History Tobacco Use Types Packs/Day [...] 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 on file Not on williams e documented as of this encounter Miscellaneous Notes * Telephone Encounter - Christina Perez RN - 12/09/2024 3:21 PM EDT Has started Camzyos therapy and have ECHO and OV scheduled for 12-31-24 * Telephone Encounter - Christina Perez RN - 12/02/2024 10:16 AM EDT Called [facility] to inquire about Camzyos and [...] Hendrix MD - 11/11/2024 2:28 PM EDT alf has reached out and stated they can [...] Description 02/17/2025 12:30 PM EST Ancillary Procedure [facility] [address] [place] [address] [place] [address] 02/17/2025 1:30 PM EST Office Visit [facility] [address] [place] [address] [address] [place], [place] [address] Shannan Adair APRN [address] [place] [address] documented as of this encounter [...] (HOCM) documented in this encounter Care Teams Spray Unit Feeder Relationship Specialty Start Date End Date Toadvine, Fred K, MD [facility] [place] [address] PCP - General Family Medicine 11/10/24 documented as of this encounter
--- OUTSIDE RECORDS SUMMARY | 2025-02-02 09:32 | XMS_ITS | Encounter Summary ---
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 Not on williams e documented as of this encounter Plan of Treatment Upcoming Encounters Date Type Department Care Team (Late st Contact Info) Description 02/17/2025 12:30 PM EST Ancillary Procedure [facility] [address] [place] [address] 02/17/2025 1:30 PM EST Office Visit [facility] [address] [place] [address] Shannan Adair APRN [address] [place] [address] documented as of this encounter Visit Diagnoses Not on filedocumented in this encounter Care Teams It Service Manager Relationship Specialty Start Date End Date Fred Robbins MD [facility] [place] [address] PCP - General Family Medicine 11/10/24 documented as of this encounter
--- OUTSIDE RECORDS SUMMARY | 2025-02-02 09:32 | XMS_ITS | Encounter Summary ---
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 Okay for Lasix for now. * Telephone Encounter - Christina Perez RN - 12/29/2024 2:08 PM EST Received phone call from Samreen at [facility]. Was inquiring as to status of [...] Description 02/17/2025 12:30 PM EST Ancillary Procedure [facility] [address] [place] [address] 02/17/2025 1:30 PM EST Office Visit [facility] CL[facility]IC [place] [address] Shannan Adair APRN [address] [place] [address] documented as of this encounter Visit Diagnoses Not on filedocumented in this encounter Care Teams Cashier Checker Relationship Specialty Start Date End Date Fred Robbins MD [address] [place] [address] PCP - General Family Medicine 11/10/24 documented as of this encounter
--- OUTSIDE RECORDS SUMMARY | 2025-02-02 09:32 | XMS_ITS | Encounter Summary ---
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 * Telephone Encounter - Cruz Paz CMA - 01/19/2025 12:02 PM EST PATIENT HAS BEEN ON CAMZYOS FOR ABOUT A MONTH AND A HALF. DOUG RAHMAN, STATED THAT PATIENT HAS BEEN EXPERIENCING MORE SHORTNESS OF BREATH AND SOME FLUID OVERLOAD. PATIENT WAS ADMITTED TO [facility] FOR TWO DAYS. PATIENT IS AT HOME NOW, BUT PATIENT'S POA IS CONCERNED THAT MEDICATION IS CAUSING SHORTNESS OF BREATH AND FLUID GAIN. REQUESTED RECORDS FROM [facility] PATIENT CURRENTLY HAS AN APPOINTMENT AND ECHO 01/29/2025 * Telephone Encounter - Rachel Rosenbaum RegSched Rep - 01/19/2025 11:18 AM EST PT'S POA, DOUG BOWDEN, WOULD LIKE A CALL BACK REGARDING PT'S CAMZYOS MEDICATION. PT WAS IN THE HOSPITAL RECENTLY DUE TO FLUID ON LUNGS AND LEGS WHICH HAS WORSENED SINCE PT STARTED TAKING CAMZYOS 1 MONTH AGO. CALL BACK PHONE NUMBER IS . THANK YOU. documented in this encounter Plan of Treatment Upcoming Encounters Date Type Department Care Team (Late st Contact Info) Description 02/17/2025 12:30 PM EST Ancillary Procedure [facility]IOLOGY [address] [place] [address] 02/17/2025 1:30 PM EST Office Visit [facility] [address] [place] [address] Shannan Adair APRN [address] [place] [address] documented as of this encounter Visit Diagnoses Not on filedocumented in this encounter Care Teams Peeled Potato Inspector Relationship Specialty Start Date End Date Fred Robbins MD [facility] [address] [address] PCP - General Family Medicine 11/10/24 documented as of this encounter
--- OUTSIDE RECORDS SUMMARY | 2025-02-02 09:33 | XMS_ITS | Encounter Summary ---
Author Organization [facility] Address [address] [place] [address] Care Team Providers Care Timber Mill Worker Name Role Phone Fred Robbins MD Primary Care Provider +1- [phone] Encounter Details Date Type Department Care Team (Late st Contact Info) Description 01/21/[address] 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 She was given VORB of Dr. Hendrix: Stop Camzyos. Change Lasix to Bumex 2mg BID. Increase Potassium to 20meq BID. Pt needs BMP two days prior to her OV on 01/29/25. Blood draws are done on Mondays and will obtain this on 01/26/25 and forward to our office. documented in this encounter Plan of Treatment Upcoming Encounters Date Type Department Care Team (Late st Contact Info) Description 02/17/2025 12:30 PM EST Ancillary Procedure [facility] CARDIOLOGY [address] [place] [address] [place] [address] 02/17/2025 1:30 PM EST Office Visit [facility] CARDI[facility] [address] [place] [address] [place] [address] Shannan Adair APRN [address] [place] [address] documented as of this encounter Visit Diagnoses Not on filedocumented in this encounter Care Teams Timber Mill Worker Relationship Specialty Start Date End Date Fred Robbins MD [address] [address] PCP - General Family Medicine 11/10/24 documented as of this encounter
--- OUTSIDE RECORDS SUMMARY | 2025-02-02 09:33 | XMS_ITS | Encounter Summary ---
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 Not on williams e documented as of this encounter Plan of Treatment Upcoming Encounters Date Type Department Care Team (Late st Contact Info) Description 02/17/2025 12:30 PM EST Ancillary Procedure [facility]IOLOGY [address] [place] [address] 02/17/2025 1:30 PM EST Office Visit [facility] CARDIOLOGY [address] [place] [address] Shannan Adair APRN 24 [place] [address] documented as of this encounter Visit Diagnoses Not on filedocumented in this encounter Care Teams Director Park Relationship Specialty Start Date End Date Fred Robbins MD [facility] [place] [address] PCP - General Family Medicine 11/10/24 documented as of this encounter
[2025-02-02 10:12] LABS: Chloride 104 mmol/L (98-107)
[2025-02-02 10:13] LABS: Potassium 3.4 mmoL/L (3.5-5.1); Sodium 137 mmol/L (136-145)
[2025-02-02 10:15] LABS: Blood Urea Nitrogen 35 mg/dl (7-17); Creatinine,Serum 1.40 mg/dl (0.52-1.04); Estimated Glomerular Filt Rate 37 ml/min (>60); GFR (African American) 45 ML/MIN (>60)
[2025-02-02 10:16] LABS: Anion Gap 4.4 mEq/L (5-15); Calcium 10.3 mg/dl (8.4-10.2); Carbon Dioxide 32 mmol/L (22.0-30.0); Glucose 93 mg/dl (74-100)
== END 2025-02-02 23:59 | disposition home or self-care (01) ==
LOC: LAB.DROPOF 09:29
PROVIDERS: PCP Family Medicine; Visit Provider Family Medicine
DX: E83.52 Hypercalcemia (principal)
CPT/HCPCS: 36415; 80048

== ENCOUNTER 2025-02-06 08:52 | Outpatient (CLI) | payer MEDICARE, BC, MEDICAID, SELFPAY ==
--- OUTSIDE RECORDS SUMMARY | 2025-01-01 14:30 | XMS_ITS | Encounter Summary ---
[facility] Address [address] [place] [address] Care Team Providers Care Inspector Quality Assurance Name Role Phone Fred Robbins MD Primary Care Provider [phone]- [phone] Reason for Visit * Diagnostic Imaging (Routine) - Closed Specialty Diagnoses / Procedures Referred By Contac t Referred To Contact Diagnoses Hypertrophic obstructive cardiomyopathy (HOCM) Procedures Adult Transthoracic Echo Complete W/ Cont if Necessary Per Protocol [place] ECHO TTHRC R-T 2D W/WOM-MODE COMPL SPEC&COLR D MI ECHO TRANSTHORC R-T 2D W/WO M-MODE REC F-UP/LMTD Kaajl Hendrix MD [address] [place] [address] Phone: tel: fax: [facility] [address] [place] [address] Phone: tel: fax: Referral ID Status Reason Start Date Expiration Date Visits Re quested Visits Authorized [id number] Closed 01/01/2025 04/02/2026 1 1 Encounter Details Date Type Department Care Team (Latest Contact Info) Description 01/01/2025 2:30 PM EST Ancillary Procedure [facility] [address] [place] [address] [place] [address] Hypertrophic obstructive cardiomyopathy (HOCM) Social History [...] 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 Not on file Not on williams e documented as of this encounter Last Filed Vital Signs Vital Sign Reading Time Taken Comments Blood Pressure 147/89 01/01/2025 2:44 PM EST Pulse - - Temperature - - Respiratory Rate - - Oxygen Saturation - - Inhaled Oxygen Concentration - - Weight 87.5 kg (193 lb) 01/01/2025 2:44 PM EST Height - - Body Mass Index 31.15 01/01/2025 2:21 PM EST documented in this encounter Plan of Treatment Upcoming Encounters Date Type Department Care Team (Late st Contact Info) Description 02/17/2025 12:30 PM EST Ancillary Procedure [facility] [place] [address] 02/17/2025 1:30 PM EST Office Visit [facility] [address] [place] [address] [place] [address] Shannan Adair APRN [address] [place] [address] documented as of this encounter Procedures Procedure Name Priority Date/Time Associated Diagnosis Comments ECHO COMPLETE W/ DOPPLER AND COLOR FLOW Routine 01/01/2025 3:30 PM EST Hypertrophic obstructive cardiomyopathy (HOCM) documented in this encounter Results * ECHO COMPLETE W/ DOPPLER AND COLOR FLOW (01/01/2025 3:30 PM EST) EF(MOD-bp) 50.1 % LVIDd 2.8 cm LVIDs 1.98 cm IVSd 2.07 cm LVPWd 1.57 cm FS 29.0 % IVS/LVPW 1.32 cm ESV(cubed) 7.8 ml LV Sys Vol (BSA corrected) 18.4 cm2 EDV(cubed) 21.7 ml LV Benson Vol (BSA corrected) 40.5 cm2 LV mass(C)d 203.7 grams LVOT area 2.8 cm2 LVOT diam 1.90 cm EDV(MOD-sp2) 99.7 ml EDV(MOD-sp4) 81.7 ml ESV(MOD-sp2) 55.6 ml ESV(MOD-sp4) 37.2 ml SV(MOD-sp2) 44.1 ml SV(MOD-sp4) 44.5 ml SVi(MOD-SP2) 21.9 ml/m2 SVi(MOD-SP4) 22.1 ml/m2 SVi (LVOT) 55.7 ml/m2 EF(MOD-sp2) 44.2 % EF(MOD-sp4) 54.5 % MV E max krystle 189.0 cm/sec MV A max krystle 31.4 cm/sec MV dec time 0.27 sec MV E/A 6.0 LA ESV Index (BP) 90.1 ml/m2 TR max krystle 293.0 cm/sec SV(LVOT) 112.4 ml RVIDd 3.8 cm RV Base 4.0 cm RV Mid 3.6 cm RV Length 6.0 cm TAPSE (>1.6) 1.34 cm RV S' 6.6 cm/sec LA dimension (2D) 5.3 cm LV V1 max 186.5 cm/sec LV V1 max PG 14.9 mmHg LV V1 mean PG 5.0 mmHg LV V1 VTI 28.9 cm Ao pk krystle 299.0 cm/sec Ao max PG 36 mmHg Ao mean PG 20 mmHg Ao V2 VTI 61.1 cm ADELITA(I,D) 1.84 cm2 Dimensionless Index 0.65 (DI) MV max PG 27.00 mmHg MV mean PG 9.00 mmHg MV V2 VTI 55.6 cm MVA(VTI) 2.02 cm2 MV dec slope 696.0 cm/sec2 TR max PG 34.6 mmHg RVSP(TR) 37.6 mmHg RAP systole 8 mmHg PA V2 max 102.5 cm/sec PI end-d krystle 138.0 cm/sec Ao root diam 1.80 cm Sinus 1.93 cm LA ESV (BP) 159.0 ml ADELITA (traced) 1.3 cm2 MVA(P1/2t) 1.98 cm2 Anatomical Region Laterality Modality Ultrasound Narrative 01/02/2025 12:34 PM EST Left ventricular ejection fraction appears to be 56 - 60%. Left ventricular wall thickness is consistent with moderate to severe concentric hypertrophy. Estimated LOVT gradient 36mmHg at rest and 48mmHg with valsalva. Technically difficult study to measure. Mild aortic valve stenosis is present. Mild to moderate mitral valve stenosis is present. Estimated right ventricular systolic pressure from tricuspid regurgitation is mildly elevated (35-45 mmHg). Left Ventricle Left ventricular ejection fraction appears to be 56 - 60%. Normal left ventricular cavity size noted. Left ventricular wall thickness is consistent with moderate to severe concentric hypertrophy. All left ventricular wall segments contract normally. Left ventricular diastolic function was not assessed. Right Ventricle Normal right ventricular cavity size, wall thickness, systolic function and septal motion noted. Left Atrium The left atrial cavity is severely dilated. Right Atrium The right atrial cavity is severely dilated. Right atrial volume is 96.8 ml. Mitral Valve Severe mitral annular calcification is present. Mild to moderate mitral valve regurgitation is present with a centrally-directed jet noted. Mild to moderate mitral valve stenosis is present. Tricuspid Valve The tricuspid valve is structurally normal with no significant stenosis present. Mild to moderate tricuspid valve regurgitation is present. Estimated right ventricular systolic pressure from tricuspid regurgitation is mildly elevated (35-45 mmHg). Aortic Valve The aortic valve is abnormal in structure. There is calcification of the aortic valve. The aortic valve appears trileaflet. Mild aortic valve regurgitation is present. Mild aortic valve stenosis is present. Pulmonic Valve The pulmonic valve is structurally normal. There is mild pulmonic valve regurgitation present. Pericardium The pericardium is normal. There is no evidence of pericardial effusion. . Greater Vessels No dilation of the aortic root is present. No dilation of the sinuses of Valsalva is present. No dilation of the ascending aorta is present. There is no plaque in the ascending aorta present. The inferior vena cava is dilated. Partial IVC inspiratory collapse of less than 50% noted. Study Quality The study is technically difficult for diagnosis. The quality of the study is limited due to patient body habitus and patient positioning . Wall Scoring Score Index: 1.00 The left ventricular wall motion is normal. us Kajal Hendrix MD CV ECHO ORDERABLES Final Res ult documented in this encounter Visit Diagnoses Diagnosis Hypertrophic obstructive cardiomyopathy (HOCM) documented in this encounter Care Teams Inspector Quality Assurance Relationship Specialty Start Date End Date Fred Robbins MD [address] [place] [address] PCP - General Family Medicine 11/10/24 documented as of this encounter
--- OUTSIDE RECORDS SUMMARY | 2025-01-01 15:15 | XMS_ITS | Encounter Summary ---
Author Organization [facility] Address [address] [place] [id number] Care Team Providers Care Asphalt Mixing Machine Operator Name Role Phone Fred Robbins MD Primary Care Provider +1- [phone] Reason for Visit * Reason Comments Follow-up Echo results Encounter Details Date Type Department Care Team (Latest Contact Info) Description 01/01/2025 3:15 PM EST Office Visit [facility] [address] [place] [address] Shannan Adair, [employer] MANAGER [address] [place] [address] Hypertrophic obstructive cardiomyopathy (HOCM) (Primary Dx); Nonrheumatic aortic valve stenosis; Atrial fibrillation, chronic; Pacemaker; Primary hypertension Social History Tobacco Use Types Packs/Day Years [...] 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 on file Not on williams e documented as of this encounter Last Filed Vital Signs Vital Sign Reading Time Taken Comments Blood Pressure 147/89 01/01/2025 3:42 PM EST Pulse 81 01/01/2025 3:42 PM EST Temperature - - Respiratory Rate - - Oxygen Saturation 100% 01/01/2025 3:42 PM EST Inhaled Oxygen Concentration - - Weight 87.5 kg (193 lb) 01/01/2025 3:42 PM EST Height 167.6 cm (5' 6 ) 01/01/2025 3:42 PM EST Body Mass Index 31.15 01/01/2025 3:42 PM EST documented in this encounter Progress Notes * Shannan Adair APRN - 01/01/2025 3:15 PM ESTAssociated Problem(s): Hypertrophic obstructive cardiomyopathy (HOCM) {CHF (Optional):96813} * Shannan Adair APRN - 01/01/2025 3:15 PM ESTAssociated Problem(s): Aortic valve stenosis * Shannan Adair APRN - 01/01/2025 3:15 PM ESTAssociated Problem(s): Hypertension {Hypertension is (optional):[id number]} HOCM - Had ECHO done today. Report not done by the time patient was seen. - Discussed with patient and family today that Dr. Hendrix's nurse Christina will have to put gradient numbers into [employer] system and will be in contact with her regarding next ECHO and follow up - Denies any shortness of breath today - Does have some lower extremity swelling 2. Aortic Valve Stenosis - ECHO done today 3. Atrial Fibrillation - Continue Eliquis 5 mg twice daily and metoprolol 50 mg daily 4. Pacemaker - Pacemaker interrogated at last visit that revealed good battery life and lead function. 5. Hypertension - blood pressure today 147/89. States had some anxiety regarding having ECHO today - Continue Metoprolol 50mg daily. * Shannan Adair APRN - 01/01/2025 3:15 PM EST Images from the original note were not included. [facility] Provider Note Date: 01/01/2025 Name: Cuong Quintero : 1955 PCP: Fred Robbins MD Chief Complaint Patient presents with Follow-up Echo results Subjective History of Present Illness Cuong Quintero is a 69 y.o. female who presents today for follow up with ECHO r/t HOCM Patient with HOCM and at last visit on 11/11/2024 had discussed starting patient on Camzyos. Patient is in jail and had to get approval to see if Camzyos would be an option for her. Patient was started on Camzyos 5 mg daily. Patient recently had some shortness of breath and had been started on Lasix for 3 days. Currently denies any shortness of breath. ECHO today. Report not done by the time patient was seen. CARDIAC Coronary Artery Disease: Normal coronaries, 2016 Myocardium: Echo 03/19/2024: LVEF 70%, severe LVH, BRITTNEY, LVOT gradient 85 Valvular: Severe aortic stenosis s/p SAVR BRITTNEY with moderate MR, MS RSVP 55 Electrical: [id number] SCORE /RISK: 4 /6.7% Pericardium: Normal VASCULAR Arterial Cerebrovascular disease: Peripheral vascular disease: AAA: Venous: AUTONOMIC DYSFUNCTION Autonomic failure: Neurally mediated Syncope/vagal: POTS: CARDIAC RISK FACTORS Hypertension Diabetes Dyslipidemia Obesity Physical Inactivity Tobacco Use: Former Smoker and PPY: 45 NON-CARDIAC Breast cancer Arthritis Dyspnea Depression SURGERIES Cholecystectomy Hysterectomy Partial mastectomy 11/19/2024 ECHO - EF 66-70% - Left ventricular diastolic function was not assessed. ?? The LVOT pressure gradient at rest is 32 mmHg. The LVOT pressure gradient with provocation is 48mmHg. ?? Moderate mitral valve stenosis is present. The mitral valve peak gradient is 31 mmHg. The mitralvalve mean gradient is 10 mmHg. Moderate mitral valve regurgitation is present. ?? Calculated right ventricular systolic pressure from tricuspid regurgitation is 48 mmHg. Moderatepulmonary hypertension is present. Allergies Allergen Reactions Other Nausea And Vomiting Darvocet Sulfa Antibiotics Rash Current Outpatient Medications: albuterol sulfate HFA 108 (90 Base) MCG/ACT inhaler, As Needed., Disp: , Rfl: apixaban (ELIQUIS) 5 MG tablet tablet, Take 1 tablet by mouth 2 (Two) Times a Day., Disp: 60 tablet, Rfl: 6 buPROPion XL (WELLBUTRIN XL) 300 MG 24 hr tablet, Take 1 tablet by mouth Daily., Disp: , Rfl: furosemide (LASIX) 20 MG tablet, Take 1 tablet by mouth Daily., Disp: , Rfl: Mavacamten (Camzyos) 5 MG capsule, Take 1 capsule by mouth Daily., Disp: , Rfl: metoprolol succinate XL (TOPROL-XL) 50 MG 24 hr tablet, Take 1 tablet by mouth Daily., Disp: 30 tablet, Rfl: 0 potassium chloride (KLOR-CON M10) 10 MEQ CR tablet, Take 1 tablet by mouth Daily., Disp: , Rfl: No current facility-administered medications for this visit. Facility-Administered Medications Ordered in Other Visits: Chlorhexidine Gluconate Cloth 2 % pads 1 application, 1 application , Topical, Q12H PRN, Fred Mahoney PA Past Medical History: Diagnosis Date Anxiety and depression Aortic stenosis Arthritis hands and knees especially Breast cancer 2010 s/p partial mastectomy-rt Current smoker 04/24/2016 Depression Diabetes does not check sugars at home but HA1c every 3 months; last time 5.9 Dyspnea Heart murmur entire lifetime Hypertension MRSA (methicillin resistant Staphylococcus aureus) 2010 after partial mastectomy Wears contact lenses Wears dentures upper Past Surgical History: Procedure Laterality Date AORTIC VALVE REPAIR/REPLACEMENT N/A 04/24/2016 Procedure: AORTIC VALVE REPAIR/REPLACEMENT WITH JAME; Surgeon: Jose Beltran MD; Location: [facility] OR; Service: CARDIAC CATHETERIZATION N/A 03/31/2016 Procedure: Left Heart Cath; Surgeon: Jose Ellison MD; Location: [facility]; Service: CARDIOVERSION x5 CHOLECYSTECTOMY HYSTERECTOMY with bso MASTECTOMY PARTIAL / LUMPECTOMY Right 2011 Right Family History Problem Relation Name Age of Onset Heart failure Mother Heart attack Father Heart disease Sister Social History Socioeconomic History Marital status: Single Number of children: 0 Tobacco Use Smoking status: Former Current packs/day: 0.00 Average packs/day: 1 pack/day for 45.0 years (45.0 ttl pk-yrs) Types: Cigarettes Start date: 04/25/1971 Quit date: 04/24/2016 Years since quittin.6 Passive exposure: Past Smokeless tobacco: Never Vaping Use Vaping status: Never Used Substance and Sexual Activity Alcohol use: No Drug use: No Sexual activity: Defer Objective Vital Signs: BP 147/89 Pulse 81 Ht 167.6 cm (66 ) Wt 87.5 kg (193 lb) SpO2 100% BMI 31.15 kg/m?? Estimated body mass index is 31.15 kg/m?? as calculated from the following: Height as of this encounter: 167.6 cm (66 ). Weight as of this encounter: 87.5 kg (193 lb). BMI is >= 30 and <35. (Class 1 Obesity). The following options were offered after discussion;: pt in jail Physical Exam Constitutional: Appearance: Normal appearance. She is well-developed. HENT: Head: Normocephalic and atraumatic. Eyes: General: No scleral icterus. Pupils: Pupils are equal, round, and reactive to light. Cardiovascular: Rate and Rhythm: Normal rate and regular rhythm. Heart sounds: Murmur heard. Pulmonary: Breath sounds: Normal breath sounds. No wheezing or rhonchi. Genitourinary: Comments: Has 1+ pitting edema in lower extremities Musculoskeletal: Right lower leg: Edema present. Left lower leg: Edema present. Comments: Pt in wheelchair Skin: Capillary Refill: Capillary refill takes less than 2 seconds. Coloration: Skin is not cyanotic. Nails: There is no clubbing. Neurological: Mental Status: She is alert and oriented to person, place, and time. Motor: No weakness. Gait: Gait (rollater) normal. Psychiatric: Mood and Affect: Mood normal. Behavior: Behavior is cooperative. Thought Content: Thought content normal. Assessment and Plan Assessment & Plan Hypertrophic obstructive cardiomyopathy (HOCM) Nonrheumatic aortic valve stenosis Atrial fibrillation, chronic Pacemaker Primary hypertension HOCM - Had ECHO done today. Report not done by the time patient was seen. - Discussed with patient and family today that Dr. Hendrix's nurse Christina will have to put gradient numbers into [employer] system and will be in contact with her regarding next ECHO and follow up - Denies any shortness of breath today - Does have some lower extremity swelling 2. Aortic Valve Stenosis - ECHO done today 3. Atrial Fibrillation - Continue Eliquis 5 mg twice daily and metoprolol 50 mg daily 4. Pacemaker - Pacemaker interrogated at last visit that revealed good battery life and lead function. 5. Hypertension - blood pressure today 147/89. States had some anxiety regarding having ECHO today - Continue Metoprolol 50mg daily. Recommendations: Report if any new/changing symptoms immediately, Limit salt, and Elevate legs Follow Up No follow-ups on file. Shannan Adair APRN Card[facility] 01/01/2025 Please note that this explicitly excludes time spent on other separate billable services such as performing procedures or test interpretation, when applicable. documented in this encounter Plan of Treatment Upcoming Encounters Date Type Department Care Team (Late st Contact Info) Description 02/17/2025 12:30 PM EST Ancillary Procedure [facility] [place] [address] 02/17/2025 1:30 PM EST Office Visit [facility] [address] [place] [address] [place] [address] Shannan Adair APRN [address] [place] [address] documented as of this encounter Visit Diagnoses Diagnosis Hypertrophic obstructive cardiomyopathy (HOCM)- Primary Nonrheumatic aortic valve stenosis Atrial fibrillation, chronic Pacemaker Cardiac pacemaker in situ Primary hypertension Unspecified essential hypertension documented in this encounter Care Teams Asphalt Mixing Machine Operator Relationship Specialty Start Date End Date Fred Robbins MD [facility] [address] [address] PCP - General Family Medicine 11/10/24 documented as of this encounter
--- OUTSIDE RECORDS SUMMARY | 2025-01-21 14:15 | XMS_ITS | Encounter Summary ---
Author Organization [facility] Address [address] [place] [address] Care Team Providers Care Technical Communicator Name Role Phone Fred Robbins MD Primary Care Provider +1- [phone] Reason for Visit * Reason Comments Shortness of Breath Pt states she is her e today for SOA and swelling. She was recently admitted to [facility]. Swelling had improved when she left the hosp but today is much worse. 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 She was recently admitted to [facility]. Swelling had improved when she left [...] made her worse. Has been admitted to [facility] for swelling. Records are in EPIC [...] MS RSVP 55 5. Dementia, lives at [facility] Hypertension Diabetes Dyslipidemia Tobacco [...] stop it. She and her power of corporate attorney are in agreement with this today. -Recently in the hospital for worsening swelling. Improved with IV Lasix. Her usp cannot do IV Lasix today. She feels like she is gone worse being in the usp on 40 mg twice daily Lasix. -Change Lasix to Bumex 2 mg twice daily and increase potassium to 20 mEq twice daily. Follow-up 1 week and have usp do labs prior to appointment to make sure potassium and renal function are helping. -PM checked in office recently. No need to check today. Follow Up Return in about 1 week (around 01/28/2025) for follow up as previously scheduled. Elba Hendrix MD Cardiology and [facility] 01/21/2025 Please note that this explicitly excludes [...] Description 02/17/2025 12:30 PM EST Ancillary Procedure [facility] [place] [address] 02/17/2025 1:30 PM EST Office Visit [facility] [address] [place] [address] [place] [address] Shannan Adair, ALEXY [address] [place] [address] documented as of this encounter Visit Diagnoses Diagnosis Other hypertrophic cardiomyopathy- Primary Nonrheumatic aortic valve stenosis Primary hypertension Unspecified essential hypertension Swelling of lower extremity documented in this encounter Care Teams Technical Communicator Relationship Specialty Start Date End Date Fred Robbins MD [facility] [address] [address] PCP - General Family Medicine 11/10/24 documented as of this encounter
--- OUTSIDE RECORDS SUMMARY | 2025-02-06 08:56 | XMS_ITS | Encounter Summary ---
Author Organization [facility] Address [address] [place] [address] Care Team Providers Care Net Web Application Developer Name Role Phone Pcp, No Primary Care Provider Unavailabl e Encounter Details Date Type Department Care Team (Late st Contact Info) Description 12/02/2024 Telephone [facility] Sonny [address] [place] [id number] Chris Galloway MD [address] [place] [address] Social History Tobacco Use Types [...] Caller declined to reschedule. Best contact number: [phone] (home) Optimal time of day to reach caller: ANYTIME Additional comments/information from caller: None Note: Please do not reply to this message. Follow-up communication and further actions as a result of this message need to be communicated with the patient directly, if the patient is not active onMyChart. If the patient is active on MyChart, they will receive notification of the communication/outcome via Las [employer]ast. documented in this encounter Plan of Treatment Not on file documented as of this encounter Visit Diagnoses Not on filedocumented in this encounter Care Teams Net Web Application Developer Relationship Specialty Start Date End Date Pcp, Francisca [address] [place] [address] PCP - General Family Medicine 07/23/24 documented as of this encounter
--- OUTSIDE RECORDS SUMMARY | 2025-02-06 08:56 | XMS_ITS | Encounter Summary ---
Author Organization [facility] Address [address] [place] [address] Care Team Providers Care Nursing Program Manager Name Role Phone Fred Robbins MD Primary Care Provider +1- [phone] Reason for Referral * Diagnostic Imaging (Routine) - Closed Specialty Diagnoses / Procedures Referred By Contac t Referred To Contact Diagnoses Hypertrophic obstructive cardiomyopathy (HOCM) Procedures Adult Transthoracic Echo Complete W/ Cont if Necessary Per Protocol AR ECHO TTHRC R-T 2D W/WOM-MODE COMPL SPEC&COLR D AR ECHO TRANSTHORC R-T 2D W/WO M-MODE REC F-UP/LMTD Kajal Hendrix MD [address] [place] [address] Phone: tel: fax: [facility] CARDIOLOGY [address] [place] [address] Phone: tel: fax: Referral ID Status Reason Start Date Expiration Date Visits Re quested Visits Authorized [id number] Closed 12/05/2024 03/06/2026 1 1 Reason for Visit * Reason Onset Date Comments UPDATE ON PA FOR PT. 12/02/2024 Encounter Details Date Type Department Care Team (Late st Contact Info) Description 12/02/2024 Telephone [facility] CARDIOLOGY [address] [place] [address] [place] [address] Kajal Hendrix MD [address] [place] [address] UPDATE ON PA FOR PT. 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 on file [...] Relationship: Emergency Contact Best call back number: [phone] What is the best time to reach [...] Description 02/17/2025 12:30 PM EST Ancillary Procedure [facility] C[facility]IOLOG[facility] [address] [place] [address] 02/17/2025 1:30 PM EST Office Visit [facility] CARDIOLOGY [address] [place] [address] [place] [address] Shannan Adair APRN [address] [place] [address] Scheduled Orders Name Type Priority Associated Diagnoses Orde r Schedule Adult Transthoracic Echo Complete W/ Cont if Necessary Per Protocol Echocardiography Routine Hypertrophic obstructive cardiomyopathy (HOCM) Expected: 01/02/2025 (Approximate), Expires: 03/07/2026 documented as of this encounter Visit Diagnoses Diagnosis Hypertrophic obstructive cardiomyopathy (HOCM)- Primary documented in this encounter Care Teams Nursing Program Manager Relationship Specialty Start Date End Date Fred Robbins MD [address] [place] [address] PCP - General Family Medicine 11/10/24 documented as of this encounter
--- OUTSIDE RECORDS SUMMARY | 2025-02-06 08:56 | XMS_ITS | Encounter Summary ---
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 PATIENT WAS ADMITTED TO [facility] FOR TWO DAYS. PATIENT IS AT HOME NOW, BUT PATIENT'S POA IS CONCERNED THAT MEDICATION IS CAUSING SHORTNESS OF BREATH AND FLUID GAIN. REQUESTED RECORDS FROM [facility] PATIENT CURRENTLY HAS AN APPOINTMENT AND ECHO [...] Description 02/17/2025 12:30 PM EST Ancillary Procedure [facility] CARDIOLOG[facility] [address] [place] [address] 02/17/2025 1:30 PM EST Office Visit [facility] C[facility]IOLOG[facility] [address] [place] [address] Shannan Adair APRN [address] [place] [address] documented as of this encounter Visit Diagnoses Not on filedocumented in this encounter Care Teams Prison Teacher Relationship Specialty Start Date End Date Fred Robbins MD [facility] [address] [address] PCP - General Family Medicine 11/10/24 documented as of this encounter
--- OUTSIDE RECORDS SUMMARY | 2025-02-06 08:56 | XMS_ITS | Clinical Summary ---
Author Organization [facility] Address [address] [place] [address] Care Team Providers Care Leather Roller Name Role Phone Fred Robbins MD Primary Care Provider +1- [phone] Allergies Active Allergy Reactions Criticality Noted Date [...] & Plan (01/01/2025 4:04 PM EST): {CHF (Optional):25609} Assessment & Plan (12/31/2024 1:13 PM EST): {CHF (Optional):06001} Paroxysmal atrial fibrillation 01/06/2022 Overview (01/06/2022): Echocardiogram, [...] AVR with tissue valve 04/24/[address] eBltran Assessment & Plan (01/01/2025 4:04 PM EST): Hypertension 04/24/2016 Assessment & Plan (01/01/2025 4:04 PM EST): {Hypertension is (optional):[id number]} HOCM - Had ECHO done today. Report not done by the time patient was seen. - Discussed with patient and family today that Dr. Hendrix's nurse Christina will have to put gradient numbers into [employer] system and will be in contact with [...] 2:15 PM EST Office Visit [facility] CARDIOLOGY [address] [place] [address] [place] [address] Kajal Hendrix MD Other hypertrophic cardiomyopathy (Primary Dx); Nonrheumatic aortic valve stenosis; Primary hypertension; Swelling of lower extremity 01/21/[address] [place] [address] Kajal Hendrix MD 01/21/2025 Travel 01/19/[address] [place] [address] Shannan Hurtado, ALEXY 01/01/2025 3:15 PM EST Office Visit [place] [address] [address] [place] [address] Shannan Hurtado, CHIEF PORT DIRECTOR Hypertrophic obstructive cardiomyopathy (HOCM) (Primary Dx); Nonrheumatic aortic valve stenosis; Atrial fibrillation, chronic; Pacemaker; Primary hypertension 01/01/2025 2:30 PM EST Ancillary Procedure [place] [address] [address] [place] [address] Hypertrophic obstructive cardiomyopathy (HOCM) 12/31/2024 Travel 12/29/2024 Telephone [facility] [address]INIC [place] [address] Kajal Hendrix MD 12/02/2024 [facility] CARDIOLOGY [address] [place] [address] [place] [address] Kajal Hendrix MD UPDATE ON PA FOR PT. 11/19/2024 10:30 AM EDT Ancillary Procedure [facility]IOLOG[facility] [address] [place] [address] Hypertrophic obstructive cardiomyopathy (HOCM) 11/19/2024 Travel 11/12/2024 [facility] CARDIOLOGY [address] [place] [address] Kajal Hendrix MD 11/11/2024 11:30 AM EDT Office Visit [facility]ARDIOLOG[facility] [address]IC [place] [address] Kajal Hendrix MD Hypertrophic obstructive cardiomyopathy (HOCM) (Primary Dx); Nonrheumatic aortic valve stenosis; Atrial fibrillation, chronic; Pacemaker 11/11/2024 Telephone [facility]IOLOG[facility] [address]IC [place] [address] Kajal Hendrix MD 11/11/2024 Travel 11/10/2024 Telephone [facility]IOLOG[facility] [address]INIC [place] [address] Shannan Hurtado, ALEXY HURTADO-MEDICATION QUESTION from Last [...] 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 Not on file [...] 12:30 PM EST Ancillary Procedure [facility] CARDIOLOG[facility] [address] [place] [address] 02/17/2025 1:30 PM EST Office Visit [facility] CARDIOLOG[facility] [address] [place] [address] [place] [address] Shannan Hurtado APRN [address] [place] [address] Health Maintenance Due Date Last [...] 05/20/2020, 04/22/2020 Medical Devices Implanted Type Area Bedspread Seamer Device Identifier Shelf Expiration Date Model / Serial / Lot Vlv Pericard Perimount Magna Ease 21 - [id number] Implanted:Qty: 1 on 04/24/2016 by Jose Beltran MD at [facility] Implant N/A: Aorta [employer]BARRAN [employer] NURA 11/02/2019 [id number] / / Procedures Procedure Name Priority Date/Time [...] - 5.60 % 04/23/2016 4:13 PM EST [facility] Blood Venipuncture / Unknown 04/23/2016 2:19 PM EST 04/23/2016 3:44 PM EST [facility] - 04/23/2016 4:13 PM EST The [employer] recommends maintenance of Hemoglobin A1C at 7.0% or lower. Goals for Hemoglobin A1C reduction may need to be modified if hypoglycemia is a problem. us Fred UPTON LAB BLOOD ORDERABLES Final R esult [facility]
[address] [place] [address], * Lipid Panel (03/31/2016 7:41 AM EST) Total Cholesterol 187 0 - 200 mg/dL 03/31/2016 8:34 AM EST [facility] Triglycerides 115 0 - 150 mg/dL 03/31/2016 8:34 AM EST [facility] HDL Cholesterol 55 40 - 60 mg/dL 03/31/2016 8:34 AM EST [facility] LDL Cholesterol 97 0 - 130 mg/dL 03/31/2016 8:34 AM EST [facility] Blood Line / Unknown 03/31/2016 7: 41 AM EST 03/31/2016 8:15 AM EST [facility] - 03/31/2016 8:34 AM EST [...] Camara APRN LAB BLOOD ORDERABLES Final Result [facility]
[address] [place] [id number], from Last 3 Months or Most Recently Relevant to Health Maintenance Insurance MEDICARE A ONLY MEDICARE A ONLY Advance Directives Documents on File Type Date Recorded Patient Rib Chopper Expl anation POWER OF GRIP BOSS - SCAN 03/19/2024 1:13 PM POA * Full Code (Latest Code Status on File) Date Activated Date Inactivated Comments 04/24/2016 11:28 AM 04/30/2016 12:05 PM * Full Code Date Activated Date Inactivated Comments 03/31/2016 10:18 AM 03/31/2016 5:40 PM Care Teams Leather Roller Relationship Specialty Start Date End Date Fred Robbins MD [address] [place] [address] PCP - General Family Medicine 11/10/24
--- OUTSIDE RECORDS SUMMARY | 2025-02-06 08:56 | XMS_ITS | Encounter Summary ---
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 Okay for Lasix for now. * Telephone Encounter - Christina Perez RN - 12/29/2024 2:08 PM EST Received phone call from Samreen at [facility]. Was inquiring as to status of [...] Description 02/17/2025 12:30 PM EST Ancillary Procedure [facility]IOLOG[facility] [address] [place] [address] 02/17/2025 1:30 PM EST Office Visit [facility] CLINIC [place] [address] Shannan Adair APRN [address] [place] [address] documented as of this encounter Visit Diagnoses Not on filedocumented in this encounter Care Teams Fermentologist Relationship Specialty Start Date End Date Fred Robbins MD [address] [place] [address] PCP - General Family Medicine 11/10/24 documented as of this encounter
--- OUTSIDE RECORDS SUMMARY | 2025-02-06 08:56 | XMS_ITS | Encounter Summary ---
Author Organization [facility] Address [address] [place] [address] Care Team Providers Care Research Associate Quality Control Qc Name Role Phone Fred Robbins MD Primary Care Provider +1- [phone] Reason for Referral * Diagnostic Imaging (Routine) - Closed Specialty Diagnoses / Procedures Referred By Contac t Referred To Contact Diagnoses Hypertrophic obstructive cardiomyopathy (HOCM) Procedures Adult Transthoracic Echo Complete W/ Cont if Necessary Per Protocol [place] ECHO TTHRC R-T 2D W/WOM-MODE COMPL SPEC&COLR D TN ECHO TRANSTHORC R-T 2D W/WO M-MODE REC F-UP/LMTD Kajal Hendrix MD [address] [place] [address] Phone: tel: fax: [facility] [address] [place] [address] Phone: tel: fax: Referral ID Status Reason Start Date Expiration Date Visits Re quested Visits Authorized [id number] Closed 11/11/2024 02/10/2026 1 1 Encounter Details Date Type Department Care Team (Late st Contact Info) Description 11/11/2024 Telephone [facility] [address] [place] [address] Kajal Hendrix MD [address] [place] [address] Social History Tobacco Use Types Packs/Day [...] 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 on williams e documented as of this encounter Miscellaneous Notes * Telephone Encounter - Christina Perez RN - 12/09/2024 3:21 PM EDT Has started Camzyos therapy and have ECHO and OV scheduled for 12-31-24 * Telephone Encounter - Christina Perez RN - 12/02/2024 10:16 AM EDT Called [facility] to inquire about Camzyos and if pt [...] Hendrix MD - 11/11/2024 2:28 PM EDT shelter has reached out and stated they can [...] Ancillary Procedure [facility] [address] [place] [address] [place] [address] 02/17/2025 1:30 PM EST Office Visit [facility] [address] [place] [address] [address] [place] [place] [address] Shannan Adair APRN [address] [place] [address] documented as of this encounter [...] (HOCM) documented in this encounter Care Teams Research Associate Quality Control Qc Relationship Specialty Start Date End Date Toadvine, Fred K, MD [address] [place] [address] PCP - General Family Medicine 11/10/24 documented as of this encounter
--- OUTSIDE RECORDS SUMMARY | 2025-02-06 08:56 | XMS_ITS | Encounter Summary ---
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 Not on williams e documented as of this encounter Plan of Treatment Upcoming Encounters Date Type Department Care Team (Late st Contact Info) Description 02/17/2025 12:30 PM EST Ancillary Procedure [facility] [address] [place] [address] 02/17/2025 1:30 PM EST Office Visit [facility] [address] [place] [address] Shannan Adair APRN [address] [place] [address] documented as of this encounter Visit Diagnoses Not on filedocumented in this encounter Care Teams Service Worker Helper Relationship Specialty Start Date End Date Fred Robbins MD [facility] [place] [address] PCP - General Family Medicine 11/10/24 documented as of this encounter
--- OUTSIDE RECORDS SUMMARY | 2025-02-06 08:56 | XMS_ITS | Encounter Summary ---
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 on williams e documented as of this encounter Plan of Treatment Upcoming Encounters Date Type Department Care Team (Late st Contact Info) Description 02/17/2025 12:30 PM EST Ancillary Procedure [facility] [address] [place] [address] 02/17/2025 1:30 PM EST Office Visit [facility] [address] [place] [address] Shannan Adair APRN [address] [place] [address] documented as of this encounter Visit Diagnoses Not on filedocumented in this encounter Care Teams Hand Sewer Shoes Relationship Specialty Start Date End Date Fred Robbins MD [facility] [place] [address] PCP - General Family Medicine 11/10/24 documented as of this encounter
--- OUTSIDE RECORDS SUMMARY | 2025-02-06 08:56 | XMS_ITS | Encounter Summary ---
Author Organization 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 [...] 02/17/2025 12:30 PM EST Ancillary Procedure [facility] [address] [place] [address] [place] [phone] 02/17/2025 1:30 PM EST Office Visit [facility] [address] [place] [address] [place] [phone] Shannan Adair APRN [address] [place] [address] documented as of this encounter Visit Diagnoses Not on filedocumented in this encounter Care Teams Tomography Technologist Relationship Specialty Start Date End Date Fred Robbins MD [address] [address] PCP - General Family Medicine 11/10/24 documented as of this encounter
--- OUTSIDE RECORDS SUMMARY | 2025-02-06 08:56 | XMS_ITS | Clinical Summary ---
Author Organization [facility] Address [address] [place] [address] Care Team Providers Care Process Improvement Analyst Name Role Phone Pcp, No Primary Care [...] Type Department Care Team Description 12/02/2024 Telephone [facility] Donald Sonny [address] [place] [address] Chris Galloway MD from Last 3 Months [...] 2004 UKY-Zoster Vaccines (1 of 2) 2004 [id number] Vaccine (4 - season) 2024 02/01/2021, 05/20/2020, [...] this topic Medical Devices Implanted Type Area Commercial Energy Rater Device Identifier Shelf Expiration Date Model / Serial / Lot Tendril Sts Jimenez Lead-09/30/2021 Implanted:2021 (Quantity not on file) Lead Chest Wall [employer] 8TC/46 / / Tendril Sts Lead Jimenez Implanted:2021 (Quantity not on file) Lead Chest Wall [employer] [id number] / / Assurity Mri Jimenez Pacemaker- 022 Implanted:2021 (Quantity not on file) Pacemaker Chest Wall V2contact [id number] / / Description:Entire CIED syst em implanted on 09/30/2021 LEAD MODEL: 2088TC/46 LEAD MODEL: 2088TC/52 Perimount Magna Ease 21 Pericardial Valve-04/24/2016 Implanted:2016 (Quantity not on file) Valve Heart Description:Vlv Pericard Per imount Magna Ease 21 - [id number] Implanted: Qty: 1 on 04/24/2016 by Jose Beltran MD at [facility] Implant N/A: [employer] 11/02/2019 [id number] [place] [address] [facility] Care Teams Process Improvement Analyst Relationship Specialty Start Date End Date Pcp, [place] [address] PCP - General Family Medicine 07/23/24
[2025-02-06 10:12] LABS: 25-OH Vitamin D, Total 19.0 ng/mL (30-100)
== END 2025-02-06 23:59 | disposition home or self-care (01) ==
LOC: LAB.DROPOF 08:52
PROVIDERS: PCP Family Medicine; Visit Provider Nurse Practitioner Family
DX: E55.9 Vitamin D deficiency, unspecified (principal)
CPT/HCPCS: 36415; 82306